=== PATIENT | male | born 1955 | race Hispanic/Latino ===

== ENCOUNTER 2017-03-31 17:28 | Observation (INO) | payer MEDICAID, SELFPAY ==
--- NOTE | 2017-03-31 17:57 | RAD ---
PORTABLE CHEST: 03/31/17 HISTORY: Chest pain. Lungs are clear. No infiltrate or vascular congestion. Heart and mediastinum are unremarkable. IMPRESSION: No acute process identified. POS: [facility]
[2017-03-31 17:58] LABS: #Eosinphils 0.1 thou/uL (0.0-0.7); #Lymphocytes 1.6 thou/uL (1.20-3.40); #Monocytes 0.5 thou/uL (0.11-0.59); #Neutrophils 5.7 thou/uL (1.40-6.50); %Basophils 0.2 % (0.0-1.0); %Eosinophils 1.4 % (0.0-10.0); %Lymphocytes 20.3 % (21.0-51.0); %Monocytes 6.7 % (0.0-10.0); Hematocrit 44.1 % (42.0-52.0); Mean Platelet Volume 7.7 fL (7.4-10.4); White Blood Cell (WBC) Count 7.9 thou/uL (4.8-10.8)
[2017-03-31 18:21] LABS: ALT (SGPT) 48 U/L (8-55); AST (SGOT) 39 U/L (5-34); Alkaline Phosphatase 71 U/L (40-150); Anion Gap 18 mmol/L (10-20); BUN (Urea Nitrogen) 24 mg/dL (8.4-25.7); Bilirubin, Total 0.3 mg/dL (0.2-1.2); CK (CPK) 183 U/L (30-200); Calc. Creatinine Clearance 0 mL/min (70-130); Calcium 9.8 mg/dL (7.8-10.44); Carbon Dioxide 20 mmol/L (23-31); Chloride 105 mmol/L (98-107); Estimated GFR-MDRD 51; Globulin 3.9 g/dL (2.4-3.5)
[2017-03-31 18:23] LABS: Troponin I Less than 0.010 ng/mL (< 0.028)
[2017-03-31] MEDS ORDERED: Nitroglycerin 0.4 MG TAB (25 Tab Bottle) ONE (19:04)
[2017-03-31] MEDS ORDERED: Ondansetron ODT 4 MG TAB SL PRN (21:10)
[2017-03-31] MEDS ORDERED: Ondansetron HCl/PF 4 MG/2 ML Vial IVP PRN (21:10)
[2017-03-31] MEDS ORDERED: Acetaminophen 325 MG TAB PO PRN ×2 (21:10→22:30)
[2017-03-31 21:13] LABS: Troponin I 0.013 ng/mL (< 0.028)
[2017-03-31 21:44] VITALS: BMI 29.8
[2017-03-31] MEDS ORDERED: Guaifenesin DM 100-10/5 ML UDCUP PO PRN (22:30)
[2017-03-31] MEDS ORDERED: Dextrose 50% Abboject 50 ML SYRINGE SLOW IVP PRN (22:30)
[2017-03-31] MEDS ORDERED: Sodium Chloride 0.9% 1,000 ML IV SCH (22:30)
[2017-03-31] MEDS ORDERED: Senokot 8.6 MG TAB PO PRN (22:30)
[2017-03-31] MEDS ORDERED: HumaLOG 300 UNITS/3 ML VIAL SC PRN (22:30)
[2017-03-31] MEDS ORDERED: Dextrose 5% in Water 1,000 ML IV PRN (22:30)
[2017-03-31] MEDS: Albuterol Sulfate 1.25 MG/3 ML NEB NEB SCH (23:04)
[2017-04-01] LABS: Troponin I Less than 0.010 ng/mL (< 0.028)
[2017-04-01 04:26] LABS: #Eosinphils 0.2 thou/uL (0.0-0.7); #Monocytes 0.5 thou/uL (0.11-0.59); %Basophils 0.6 % (0.0-1.0); %Eosinophils 2.9 % (0.0-10.0); %Lymphocytes 34.6 % (21.0-51.0); %Monocytes 9.5 % (0.0-10.0); Hematocrit 38.2 % (42.0-52.0); Mean Platelet Volume 7.7 fL (7.4-10.4); Red Blood Cell (RBC) Count 4.14 mill/uL (4.70-6.10); White Blood Cell (WBC) Count 5.6 thou/uL (4.8-10.8)
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
[2017-04-01 04:50] LABS: Anion Gap 12 mmol/L (10-20); BUN (Urea Nitrogen) 19 mg/dL (8.4-25.7); Calc. Creatinine Clearance 88 mL/min (70-130); Carbon Dioxide 23 mmol/L (23-31); Chloride 109 mmol/L (98-107); Cholesterol 220 mg/dl (< 200 Desired); Estimated GFR-MDRD 78; LDL Cholesterol, Calculated 149 mg/dL
[2017-04-01] MEDS: Albuterol Sulfate 1.25 MG/3 ML NEB NEB SCH ×2 (06:56→13:57)
[2017-04-01] MEDS ORDERED: Aspirin 325 MG TAB PO SCH (08:00)
[2017-04-01] MEDS ORDERED: glyBURIDE 5 MG TAB PO SCH (08:00)
[2017-04-01] MEDS ORDERED: Metoprolol Tartrate 25 MG TAB PO SCH (09:00)
[2017-04-01] MEDS ORDERED: Enoxaparin Sodium 40 MG/0.4 ML SYRINGE SC SCH (09:00)
[2017-04-01] MEDS ORDERED: Famotidine 20 MG TAB PO SCH (09:00)
[2017-04-01 11:22] VITALS: TEMP 97.9
--- NOTE | 2017-04-01 11:42 | NM ---
NUCLEAR MEDICINE MYOCARDIAL PERFUSION STUDY: Date: 04/01/17 HISTORY: Chest pain. TECHNIQUE: SPECT imaging of the left ventricular myocardium obtained during rest and stress following the intrav enous administration of 32.0 and 10.2 mCi technetium-99m labeled sestamibi. FINDINGS: No fixed or reversible defect is evident. Left ventricular wall motion appears normal. TID is 1.1. ED V is 70 mL. ESV is 17 mL. Left ventricular ejection fraction calculated at 76%> IMPRESSION: 1. No discrete fixed or reversible defect. 2. Normal left ventricular wall motion. 3. LVEF calculated at 76%. POS: [facility]
[2017-04-01] MEDS ORDERED: Lisinopril 5 MG TAB PO SCH (12:30)
[2017-04-01 13:46] VITALS: BP 162/82
[2017-04-01] MEDS ORDERED: Regadenoson 0.4 MG/5 ML SYRINGE ONE (14:40)
--- NOTE | 2017-04-01 17:21 | DIS ---
DATE OF ADMISSION: 03/31/2017 DATE OF DISCHARGE: 04/01/2017 DIAGNOSES AT THE TIME OF DISCHARGE: 1. Chest pain, acute coronary syndrome was ruled out. 2. Uncontrolled hypertension, improved. 3. Diabetes mellitus, type 2. 4. Dyslipidemia. HOSPITAL COURSE: The patient is a 61-year-old male who presented to the emergency room with complaints of left-sided chest pain, which started around 5:00 p.m. The pain was sharp, shooting wa s described as 10/10 in intensity, no radiation. There were not any complaints of any cough, no feve r, no orthopnea or PND. The patient was evaluated in the emergency room, he was found to have 2 sets of troponins within normal limits. CK-MB was 3.7. Albumin was 4.1, glucose 241, BUN 24, creatinine 1.4, serum bicarbonate was 20. White cell count was 7.9, H&H are 14 and 44 and platelet count was 1 88 with MCV of 92 and 71% of neutrophils. Chest x-ray did not show any acute abnormalities. EKG go wed normal sinus rhythm at 100 beats per minute, nonspecific ST-T wave changes, no ischemic changes. Lipase was 52. The patient got admitted to observation unit, acute coronary syndrome was ruled out with EKG and 3 sets of cardiac enzymes which were all negative. The patient's blood pressure was sli ghtly elevated and he was giving 5 mg of lisinopril and his blood pressure is systolic 162/85. He is doing well. He underwent stress test this morning, which did not show any ischemic changes, no disc rete fixed or reversible defect. LVEF was calculated at 76 and motion of the left ventricle wall was within normal limits. He is discharged home on diabetic diet with activities as tolerated. MEDICATIONS AT THE TIME OF DISCHARGE: Lisinopril 5 mg once a day, metformin 1000 mg twice a day, asp irin 81 mg once a day, neomycin and polymyxin suspension, he was taking prior to this hospitalization . DISCHARGE FOLLOWUP: He is going to follow up with his primary care physician. [facility], [facility] [place]. He is going to visit with PCP in 1 week and I am writing prescription for fl m on lisinopril 5 mg, #30, and the patient was seen and examined before his discharge and the dischar ge time is less than 30 minutes.
--- NOTE | 2017-05-08 11:37 | EKG ---
Test Reason : Blood Pressure : / mmHG Vent. Rate : 100 BPM Atrial Rate : 100 BPM P-R Int : 150 ms QRS Dur : 094 ms QT Int : 340 ms P-R-T Axes : 060 030 095 degrees QTc Int : 438 ms Normal sinus rhythm Cannot rule out Anterior infarct , age undetermined No STEMI Abnormal ECG Confirmed by ELLEN Mane, PEGGY ([id number]), video tape editor NINFA MENESES ([id number]) on 05/08/2017 11:36:30 AM Referred By: Confirmed By:PEGGY HUGHES M.D.
--- NOTE | 2017-05-08 13:35 | STRESS ---
Acquisition Time: 2017-04-01 09:07:02 Total Exercise Time: 00:01:00 Test Indications: CHEST PAIN Medications: Protocol: LEXISCAN Max HR: 096 BPM 60% of Pred: 159 BPM Max BP: 140/082 mmHG Max Work Load: 1.0 METS RESTING ECG: NORMAL SINUS RHYTHM AT 78 BPM WITH EARLY REPOLARIZATION SYMPTOMS: NONE NORMAL BP RESPONSE ECTOPY: NONE ECG STRESS: NO SIGNIFICANT CHANGES INTERPRETATION: NEGATIVE ECG/AWAIT NUCLEAR IMAGES FOR DEFINITIVE DIAGNOSIS Confirmed by STACEY LEE MD ([id number]) on 05/08/2017 1:35:10 PM Referred By: MD Mariya HALL Confirmed By:STACEY LEE MD
== END 2017-04-01 14:16 | disposition home or self-care (01) ==
LOC: ERS 17:28 → 2SW 20:55
PROVIDERS: ADMIT Internal Medicine; ATTEND Internal Medicine
DX: R07.9 Chest pain, unspecified (principal); I10 Essential (primary) hypertension; E11.9 Type 2 diabetes mellitus without complications; E78.5 Hyperlipidemia, unspecified; Z79.84 Long term (current) use of oral hypoglycemic drugs; Z79.82 Long term (current) use of aspirin; Z79.2 Long term (current) use of antibiotics; Z79.899 Other long term (current) drug therapy; Z89.022 Acquired absence of left finger(s); Z89.422 Acquired absence of other left toe(s); Z87.891 Personal history of nicotine dependence
CPT/HCPCS: 36415; 36416; 71010; 78452; 80048; 80053; 80061; 82550; 82553; 83690; 83880; 84484; 85025; 93005; 93017; 94640; 94760; 96360; 96361; A9500; G0378; J2785

== ENCOUNTER 2017-08-24 17:05 | Emergency (ER) | payer OTHER, SELFPAY ==
[2017-08-24 19:24] LABS: #Eosinphils 0.1 thou/uL (0.0-0.7); #Lymphocytes 1.7 thou/uL (1.20-3.40); #Monocytes 0.6 thou/uL (0.11-0.59); #Neutrophils 3.3 thou/uL (1.40-6.50); %Basophils 0.7 % (0.0-1.0); %Eosinophils 2.2 % (0.0-10.0); %Lymphocytes 29.6 % (21.0-51.0); %Neutrophils 57.4 % (42.0-75.0); Hemoglobin 13.6 g/dL (14.0-18.0); Mean Corpuscular HGB CONC 35.4 g/dL (32.0-36.0); Mean Corpuscular Hemoglobin 32.1 pg (27.0-31.0); Mean Corpuscular Volume 90.5 fl (80.0-94.0); Mean Platelet Volume 7.5 fL (7.4-10.4); Platelet Count 178 thou/uL (130-400); RBC Distribution Width 11.4 % (11.5-14.5); Red Blood Cell (RBC) Count 4.23 mill/uL (4.70-6.10); White Blood Cell (WBC) Count 5.8 thou/uL (4.8-10.8)
[2017-08-24 19:44] LABS: ALT (SGPT) 20 U/L (8-55); AST (SGOT) 20 U/L (5-34); Albumin 4.1 g/dL (3.4-4.8); Alkaline Phosphatase 62 U/L (40-150); Anion Gap 12 mmol/L (10-20); BUN (Urea Nitrogen) 24 mg/dL (8.4-25.7); Bilirubin, Total 0.3 mg/dL (0.2-1.2); Calc. Creatinine Clearance 0 mL/min (70-130); Calcium 9.4 mg/dL (7.8-10.44); Carbon Dioxide 25 mmol/L (23-31); Chloride 107 mmol/L (98-107); Estimated GFR-MDRD 62; Globulin 3.3 g/dL (2.4-3.5); Glucose 185 mg/dL (80-115); Potassium 4.2 mmol/L (3.5-5.1); Protein, Total 7.4 g/dL (5.8-8.1); Sodium 140 mmol/L (136-145)
[2017-08-24 19:48] LABS: Troponin I Less than 0.010 ng/mL (< 0.028)
--- NOTE | 2017-08-24 21:05 | RAD ---
AP VIEW OF THE CHEST: 08/24/17 INDICATION: Chest pain. IMPRESSION: No acute cardiopulmonary abnormality. Low lung volumes. The examination is otherwise not appreciably changed from the comparison dated 03/31/17. POS: [facility]
[2017-08-24] MEDS ORDERED: Ketorolac Tromethamine 60 MG/2 ML VIAL ONE (21:16)
--- NOTE | 2017-10-30 17:11 | EKG ---
Test Reason : Blood Pressure : / mmHG Vent. Rate : 084 BPM Atrial Rate : 084 BPM P-R Int : 132 ms QRS Dur : 090 ms QT Int : 352 ms P-R-T Axes : 056 058 086 degrees QTc Int : 415 ms Poor data quality, interpretation may be adversely affected Normal sinus rhythm No STEMI Abnormal ECG Confirmed by ELLEN Mane, PEGGY ([id number]), acquisition editor NINFA MENESES ([id number]) on 10/30/2017 5:11:11 PM Referred By: Confirmed By:PEGGY HUGHES M.D.
== END 2017-08-24 22:07 | disposition home or self-care (01) ==
LOC: ERS 17:05
DX: M62.830 Muscle spasm of back (principal); M62.838 Other muscle spasm; E78.5 Hyperlipidemia, unspecified; E11.9 Type 2 diabetes mellitus without complications; I10 Essential (primary) hypertension; Z79.82 Long term (current) use of aspirin; Z79.84 Long term (current) use of oral hypoglycemic drugs; V43.52XA Car driver injured in collision with other type car in traffic accident, initial encounter
CPT/HCPCS: 36415; 71045; 80053; 82553; 84484; 85025; 93005; 96372; J1885

== ENCOUNTER 2017-09-27 12:16 | Emergency (ER) | payer SELFPAY ==
[2017-09-27 14:18] LABS: #Eosinphils 0.1 thou/uL (0.0-0.7); #Lymphocytes 1.9 thou/uL (1.20-3.40); #Monocytes 0.6 thou/uL (0.11-0.59); %Basophils 0.6 % (0.0-1.0); %Eosinophils 1.7 % (0.0-10.0); %Lymphocytes 24.4 % (21.0-51.0); %Monocytes 8.3 % (0.0-10.0); Hemoglobin 14.3 g/dL (14.0-18.0); Mean Corpuscular HGB CONC 34.5 g/dL (32.0-36.0); Mean Corpuscular Hemoglobin 31.2 pg (27.0-31.0); Mean Corpuscular Volume 90.5 fl (80.0-94.0); Mean Platelet Volume 7.8 fL (7.4-10.4); Platelet Count 240 thou/uL (130-400); RBC Distribution Width 11.2 % (11.5-14.5); Red Blood Cell (RBC) Count 4.57 mill/uL (4.70-6.10); White Blood Cell (WBC) Count 7.7 thou/uL (4.8-10.8)
[2017-09-27 14:40] LABS: ALT (SGPT) 20 U/L (8-55); AST (SGOT) 25 U/L (5-34); Albumin 4.2 g/dL (3.4-4.8); Alkaline Phosphatase 72 U/L (40-150); Anion Gap 12 mmol/L (10-20); BUN (Urea Nitrogen) 23 mg/dL (8.4-25.7); Bilirubin, Total 0.6 mg/dL (0.2-1.2); Calc. Creatinine Clearance 0 mL/min (70-130); Calcium 9.5 mg/dL (7.8-10.44); Carbon Dioxide 25 mmol/L (23-31); Chloride 103 mmol/L (98-107); Estimated GFR-MDRD 56; Globulin 4.4 g/dL (2.4-3.5); Glucose 210 mg/dL (80-115); Protein, Total 8.6 g/dL (5.8-8.1); Sodium 135 mmol/L (136-145)
[2017-09-27] MEDS ORDERED: cefTRIAXone\\ROCEPHIN 1 GM VIAL ONE (14:41)
--- NOTE | 2017-09-27 15:17 | RAD ---
PA AND LATERAL CHEST RADIOGRAPH: Date: 09-27-17 History: Shortness of breath. Wound to left middle toe for three days. Comparison: 04-04-17 FINDINGS: Cardiac silhouette and pulmonary vasculature are within normal limits. The lungs remain clear. Chest is stable from prior exam. IMPRESSION: No acute cardiopulmonary process. POS: [facility]
--- NOTE | 2017-09-27 15:21 | RAD ---
LEFT FOOT THREE VIEWS: Comparison: 03-14-15 Indication: Wound. History of partial amputation of the left foot. FINDINGS: There is surgical absence of portions of the first and second ray. There is dislocation at the third digit MTP joint with override of the proximal half of the proximal phalanx and the third metatarsal h ead and resultant medial angulation of the third digit. There is erosive lucency involving the medial base and proximal phalangeal region of the fourth digit. Adjacent osseous sclerosis is present invol ving the proximal portion of the fourth digit proximal phalanx. There are vascular calcifications. So ft tissue prominence is seen. IMPRESSION: 1. Partial amputation of the first and second rays. 2. Dislocation of the third MTP joint. 3. Erosive lucency centered about the base and proximal aspect of the fourth digit proximal phalanx. Sequellae from a chronic osteomyelitis is not excluded. Superimposed acute process could also be pres ent. Consider MRI of bone scan for further evaluation. POS: [facility]
== END 2017-09-27 15:20 | disposition home or self-care (01) ==
LOC: ERS 12:16
DX: E11.621 Type 2 diabetes mellitus with foot ulcer (principal); E78.5 Hyperlipidemia, unspecified; I10 Essential (primary) hypertension; Z87.891 Personal history of nicotine dependence; Z79.82 Long term (current) use of aspirin; Z79.84 Long term (current) use of oral hypoglycemic drugs
CPT/HCPCS: 71046; 80053; 85025; 87070; 87077; 87186; 87205; 96365; J0696

== ENCOUNTER 2017-09-28 16:23 | Inpatient (IN) | payer MEDICARE, MEDICAID ==
[2017-09-28 17:16] LABS: #Basophils 0.1 thou/uL (0.0-0.2); #Eosinphils 0.1 thou/uL (0.0-0.7); #Lymphocytes 1.6 thou/uL (1.20-3.40); #Monocytes 0.7 thou/uL (0.11-0.59); #Neutrophils 5.1 thou/uL (1.40-6.50); %Eosinophils 1.9 % (0.0-10.0); %Lymphocytes 21.4 % (21.0-51.0); %Monocytes 8.5 % (0.0-10.0); %Neutrophils 67.3 % (42.0-75.0); Hemoglobin 14.2 g/dL (14.0-18.0); Mean Corpuscular HGB CONC 35.1 g/dL (32.0-36.0); Mean Corpuscular Hemoglobin 31.9 pg (27.0-31.0); Mean Corpuscular Volume 90.9 fl (80.0-94.0); Mean Platelet Volume 7.2 fL (7.4-10.4); Platelet Count 236 thou/uL (130-400); RBC Distribution Width 11.2 % (11.5-14.5); Red Blood Cell (RBC) Count 4.45 mill/uL (4.70-6.10); White Blood Cell (WBC) Count 7.6 thou/uL (4.8-10.8)
[2017-09-28 18:05] LABS: ALT (SGPT) 18 U/L (8-55); AST (SGOT) 18 U/L (5-34); Albumin 4.5 g/dL (3.4-4.8); Alkaline Phosphatase 75 U/L (40-150); Anion Gap 13 mmol/L (10-20); BUN (Urea Nitrogen) 24 mg/dL (8.4-25.7); Bilirubin, Total 0.5 mg/dL (0.2-1.2); Calc. Creatinine Clearance 0 mL/min (70-130); Calcium 9.5 mg/dL (7.8-10.44); Carbon Dioxide 23 mmol/L (23-31); Chloride 107 mmol/L (98-107); Estimated GFR-MDRD 57; Globulin 3.7 g/dL (2.4-3.5); Glucose 123 mg/dL (80-115); Potassium 4.4 mmol/L (3.5-5.1); Protein, Total 8.2 g/dL (5.8-8.1); Sodium 139 mmol/L (136-145)
[2017-09-28] MEDS ORDERED: Piperacillin/Tazobactam 4.5 GM VIAL ONE (18:21)
[2017-09-28 20:09] VITALS: BMI 32.6
[2017-09-28] MEDS ORDERED: HumaLOG 300 UNITS/3 ML VIAL SC PRN (20:14)
[2017-09-28] MEDS ORDERED: Ondansetron HCl/PF 4 MG/2 ML Vial IVP PRN (20:14)
[2017-09-28] MEDS ORDERED: Dextrose 5% in Water 1,000 ML IV PRN (20:14)
[2017-09-28] MEDS ORDERED: Bisacodyl 5 MG TAB PO PRN (20:14)
[2017-09-28] MEDS ORDERED: Acetaminophen 650 MG Suppository PR PRN (20:14)
[2017-09-28] MEDS ORDERED: Ondansetron ODT 4 MG TAB PO PRN (20:14)
[2017-09-28] MEDS ORDERED: Dextrose 50% Abboject 50 ML SYRINGE SLOW IVP PRN (20:14)
[2017-09-28] MEDS ORDERED: Lisinopril 5 MG TAB PO SCH (20:14)
[2017-09-28] MEDS ORDERED: Acetaminophen 325 MG TAB PO PRN (20:14)
[2017-09-28] MEDS: Famotidine 20 MG TAB PO SCH (21:21)
[2017-09-28] MEDS: Docusate 100 MG CAP PO SCH (21:21)
--- NOTE | 2017-09-28 23:24 | HP ---
PRIMARY CARE PHYSICIAN: Dr. Parkinson at [facility]. CHIEF COMPLAINT: Toe ulcer. HISTORY OF PRESENT ILLNESS: This is a 61-year-old male with a longstanding history of diabe mellisa mellitus, type 2, with previous amputations of the first and second toes on his left foot. Margareth rojo reports that he went to [place] last week for his brother's . He did not take care of his f eet and sat in a bus with tight shoes on for a long time each way. When he got back, he noted a sore on the top of his left third toe that burst open and produced a lot of pus and dried up a little bit after that. He has not had any pain or fever. He did have some trouble moving the toe when it was full of pus, but now he can move it again. The patient was seen here in the emergency room yesterday . He had an x-ray that did not show any osteomyelitis of the toe, and so he was given 1 gram of Roce phin then and then discharged with Bactrim double strength 1 tablet twice a day. He followed up with Dr. Parkinson at the [facility] today and they thought that there might be some osteo invo lved, so they told him to go back to the hospital to be further evaluated and be admitted for IV anti biotics. So, patient is back over here today. He does not have any fevers. He has no pain. No oth er symptoms. He has not noticed any spreading redness. PAST MEDICAL HISTORY: 1. Diabetes mellitus, type 2, for the last 15 years on oral hypoglycemics. 2. Dyslipidemia. 3. Hypertension. 4. History of testicular torsion. PAST SURGICAL HISTORY: 1. Left fifth finger distal phalanx amputation. 2. Left first and second toe amputations. 3. Some sort of testicular torsion repair. SOCIAL HISTORY: The patient smoked 1 pack of cigarettes per day for 10 years, quit 20 years ago. No alcohol or illicit drug use. He lives with his friends and does not have any close family members i the area. FAMILY HISTORY: Mother at age 68 of causes and father at the age of 3030 years old after ass aleena. ALLERGIES: No known drug allergies. CURRENT MEDICATIONS: 1. Aspirin 81 mg daily. 2. Metformin at 1000 mg twice a day. 3. Glyburide 10 mg daily. 4. He was also supposed to be started on lisinopril 5 mg daily when he was admitted here last year. He does not seem to have continued that medicine. REVIEW OF SYSTEMS: Constitutional: No fevers, no chills. Eyes: No double vision or blurred vision . ENT: No congestion, drainage, or sore throat. Cardiovascular: No chest pain, palpitations, or r acing heart. Pulmonary: No coughing, wheezing, or shortness of breath. Gastrointestinal: No abdom inal pain, no nausea, vomiting, no diarrhea or constipation. Genitourinary: No dysuria or hematuria . Musculoskeletal: No muscle aches or joint pains. See HPI for all pertinent positives. Skin: Se e HPI. No other rashes or lesions noted. Neurologic: Patient has decreased sensation in his lower extremities, otherwise no new neuro signs. PHYSICAL EXAMINATION: VITAL SIGNS: Blood pressure 164/90, pulse 79, respirations 19, temperature 98.9, O2 sat 97% on room air. GENERAL: This is a well-developed, well-nourished male, in no apparent distress. HEENT EXAM: Pupils equal, round, and reactive to light. Extraocular movements intact. Oropharynx c lear without lesions, erythema, or exudate. NECK: Supple, no lymphadenopathy, no thyroid nodules or enlargement, no JVD. HEART: Regular rate and rhythm, no murmurs, rubs, or gallops. LUNGS: Clear to auscultation bilaterally, no wheezes, crackles, or rhonchi. ABDOMEN: Soft, nontender to palpation, normoactive bowel sounds, no hepatosplenomegaly or other mass es. EXTREMITIES: No clubbing, cyanosis, or edema. Patient does have surgically absent first and second toes to the mid metatarsal shaft without any evidence of infection in those areas. He does have an u lcer on the top of his left third toe over the joint, has thickening of the skin, and some minimal er ythema surrounding it. No drainage at this time. The toe does have intact cap refill distally. It does like slightly darker color than the other toes, but not significantly. There is no surrounding erythema. No pain with manipulation. No erythema spreading up the foot. He also has a thickened so re on the plantar surface over the fifth MTP on the left side. This does not look infected, just leland e thickening with a crack in the middle of it. No drainage, no erythema, no warmth. SKIN: See above. MUSCULOSKELETAL EXAM: No other rashes noted. The patient has intact dorsalis pedis pulses bilateral ly with a strong pulse. NEUROLOGIC: He has no facial droop. He has intact strength in all extremities and decreased sensati on in his bilateral feet. LABORATORY DATA: CBC within normal limits. Complete metabolic panel notable only for a glucose of 1 23 and a serum total protein of 8.2. The rest is normal. I did review the x-ray done in the emergen cy room yesterday along with the radiologist's report. It shows the previous partial amputation of t he first and second rays of the left foot, dislocation of the third MTP joint, and erosive lucency ce ntered around the base and proximal aspect of the fourth digit proximal phalanx, unable to rule out c hronic osteomyelitis. ASSESSMENT: 1. Diabetic toe ulcer. He does not have any evidence of osteomyelitis on the underlying toe on the x-ray though he did have some changes on the fourth toe, which has no ulcer to it. 2. We will go ahead and get patient an MRI of his foot. If that shows any osteomyelitis, he will ne ed a surgical consultation. Otherwise, we can discharge him again on Bactrim for continued followup as an outpatient. We will have to do wound care while here in the hospital. 3. Diabetes mellitus, type 2. Resume patient's oral hypoglycemics and put him on a low insulin slid ing scale. Fingerstick blood sugars q.a.c. and at bedtime. 3. Hypertension. We will start patient back on lisinopril 5 mg daily. 4. Mixed lipidemias, had mild triglyceride and cholesterol elevations at his last admission here las t year. We will defer to his PCP whether or not to start him on a statin at this time. 5. Gastrointestinal prophylaxis. The patient on Pepcid twice a day. 7. Code status. I did discuss with the patient he is a FULL CODE. Should he be incapacitated, he d oes not have any family or medical power of forensic materials engineer filled out, though he states that his close frie nd would be the one to make medical decisions, her name is Valerie Danielson.
[2017-09-28] MEDS ORDERED: Piperacillin/Tazobactam 3.375 GM in Sodium Chloride 0.9% 100 ML IVPB SCH (23:59)
[2017-09-29] MEDS: Piperacillin/Tazobactam 3.375 GM in Sodium Chloride 0.9% 100 ML IVPB SCH ×3 (00:10→12:07)
[2017-09-29 04:53] LABS: #Eosinphils 0.2 thou/uL (0.0-0.7); #Lymphocytes 1.8 thou/uL (1.20-3.40); #Monocytes 0.8 thou/uL (0.11-0.59); #Neutrophils 4.5 thou/uL (1.40-6.50); %Basophils 0.6 % (0.0-1.0); %Eosinophils 2.3 % (0.0-10.0); %Lymphocytes 24.6 % (21.0-51.0); %Monocytes 11.3 % (0.0-10.0); %Neutrophils 61.2 % (42.0-75.0); Hemoglobin 12.9 g/dL (14.0-18.0); Mean Corpuscular HGB CONC 34.8 g/dL (32.0-36.0); Mean Corpuscular Hemoglobin 31.7 pg (27.0-31.0); Mean Corpuscular Volume 91.1 fl (80.0-94.0); Mean Platelet Volume 7.4 fL (7.4-10.4); Platelet Count 222 thou/uL (130-400); RBC Distribution Width 11.2 % (11.5-14.5); Red Blood Cell (RBC) Count 4.06 mill/uL (4.70-6.10); White Blood Cell (WBC) Count 7.3 thou/uL (4.8-10.8)
[2017-09-29 04:57] LABS: Anion Gap 9 mmol/L (10-20); BUN (Urea Nitrogen) 20 mg/dL (8.4-25.7); Calc. Creatinine Clearance 71 mL/min (70-130); Carbon Dioxide 27 mmol/L (23-31); Chloride 107 mmol/L (98-107); Estimated GFR-MDRD 63; Glucose 145 mg/dL (80-115); Sodium 139 mmol/L (136-145)
[2017-09-29] MEDS: metFORMIN 500 MG TAB PO SCH ×2 (08:42→17:14)
[2017-09-29] MEDS: Aspirin 81 mg Enteric Coated Tablet PO SCH (08:42)
[2017-09-29] MEDS: glyBURIDE 5 MG TAB PO SCH (08:42)
[2017-09-29] MEDS: Docusate 100 MG CAP PO SCH ×2 (08:42→20:19)
--- NOTE | 2017-09-29 10:50 | MRI ---
LEFT FOOT MRI WITHOUT IV CONTRAST: HISTORY: A 61-year-old male with a history of diabetic ulcer and possible osteomyelitis. Open wound. Prior p artial amputation. COMPARISON: Plain film examination 09/27/17. FINDINGS: Amputation of the 1st and 2nd toes at the level of the proximal metatarsals is noted. There is dislo cation of the metatarsal phalangeal joint of the 2rd toe with abnormal low T1 and high T2 and STIR si gnal involving the proximal phalanx and middle phalanx of the 3rd toe with soft tissue swelling and e vidence for significant osteomyelitis and probable septic arthritis involving the proximal interphala ngeal joint of the 3rd toe. There are some arthrosis changes involving the 4th metatarsal phalangeal joint with some mild deformity, but no evidence to suggest osteomyelitis in this region. Nonspecifi c T2 hyperintensity involving the intrinsic muscles of the foot which certainly can be seen in a nick ent with diabetes. IMPRESSION: Evidence for osteomyelitis involving the proximal and middle phalanges as well as the proximal interp halangeal joint of the 3rd toe. Dislocation of the 3rd metatarsal phalangeal joint. Amputation smith ges of the 1st and 2nd toes. Other findings as above. POS: [facility]
[2017-09-29] MEDS: HumaLOG 300 UNITS/3 ML VIAL SC PRN ×2 (12:07→17:14)
--- NOTE | 2017-09-29 17:20 | PDOC.PN ---
- Subjective Encounter Start Date: 09/29/17 Encounter Start Time: 17:15 Subjective: f/u for osteomyelitis left 3rd toe with staph spp on culture receiving -: Zosyn currently. MRI of L foot confirming osteo. No pain in toe. No fever. - Objective Resuscitation Status: Resuscitation Status FULL:Full Resuscitation MAR Reviewed: Yes Vital Signs & Weight: Vital Signs (12 hours) Temp Pulse Resp BP BP Pulse Ox 09/29/17 16:00 98.1 F 72 18 168/81 H 94 L 09/29/17 11:00 98.3 F 79 18 124/78 95 09/29/17 08:00 98.3 F 72 18 94 L 09/29/17 07:26 98.3 F 72 18 126/73 94 L Weight Admit Weight 167 lb 3.2 oz Weight 167 lb 3.2 oz Result Diagrams: 09/29/17 03:43 09/29/17 03:43 Additional Labs: Accuchecks 09/29/17 09/29/17 09/28/17 11:21 06:56 20:54 POC Glucose 174 H 112 H 283 H Microbiology 09/27/17 14:12 Foot - Left Bacterial Culture - Final Staphylococcus aureus 09/28/17 17:03 Venous blood - Right Hand Blood Culture - Preliminary Specimen has been received and culture in progress. No Growth to date. 09/28/17 17:03 Venous blood - Left Arm Blood Culture - Preliminary Specimen has been received and culture in progress. No Growth to date. Laboratory Tests 09/28/17 17:03 Lactic Acid 1.2 Radiology Reviewed by me: Yes (MRI L foot - osteo L 3rd toe) Phys Exam - Physical Examination Constitutional: NAD HEENT: PERRLA, moist MMs, sclera anicteric, oral pharynx no lesions Neck: no nodes, no JVD, supple, full ROM Respiratory: no wheezing, no rales, no rhonchi, clear to auscultation bilateral Cardiovascular: RRR, no significant murmur, no rub, gallop Gastrointestinal: soft, non-tender, no distention, positive bowel sounds L foot 3rd toe with edema, small drainage and crusting on dorsal aspect Musculoskeletal: pulses present decreased sensation to pin-prick and light touch Neurological: moves all 4 limbs Psychiatric: normal affect, A&O x 3 Skin: no rash, normal turgor, cap refill <2 seconds Dx/Plan (1) Acute osteomyelitis of toe of left foot Code(s): M86.172 - OTHER ACUTE OSTEOMYELITIS, LEFT ANKLE AND FOOT Status: Acute Comment: Left 3rd toe osteomyelitis confirmed by MRI, d/c Zosyn, start Rocephin 2gm IV daily, consult general surgery for evaluation in am (2) Benign essential hypertension Code(s): I10 - ESSENTIAL (PRIMARY) HYPERTENSION Status: Chronic Comment: Change Lisinopril 10mg daily, serial monitoring (3) Diabetes mellitus type 2, uncontrolled Code(s): E11.65 - TYPE 2 DIABETES MELLITUS WITH HYPERGLYCEMIA Status: Chronic Qualifiers: Diabetes mellitus complication detail: with foot ulcer Comment: Continue ISS, Glyburide and Metformin, ADA diet, A1C in am (4) Diabetic neuropathy Code(s): E11.40 - TYPE 2 DIABETES MELLITUS WITH DIABETIC NEUROPATHY, UNSP Status: Chronic Comment: consider Gabapentin for d/c - Plan plan discussed w/ family, continue antibiotics, 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
[2017-09-29] MEDS: cefTRIAXone\\ROCEPHIN 2 GM in Sodium Chloride 0.9% 100 ML IVPB SCH (18:28)
[2017-09-29] MEDS: Famotidine 20 MG TAB PO SCH (20:17)
[2017-09-30 04:43] LABS: Hemoglobin A1c 7.3 % (4.0-6.0)
[2017-09-30 05:02] LABS: Anion Gap 10 mmol/L (10-20); BUN (Urea Nitrogen) 19 mg/dL (8.4-25.7); Calc. Creatinine Clearance 73 mL/min (70-130); Calcium 9.5 mg/dL (7.8-10.44); Carbon Dioxide 27 mmol/L (23-31); Chloride 108 mmol/L (98-107); Cholesterol 187 mg/dl (< 200 Desired); Estimated GFR-MDRD 65; Glucose 76 mg/dL (80-115); HDL Cholesterol 31 mg/dL (>60 Neg Risk); LDL Cholesterol, Calculated 126 mg/dL; Potassium 4.3 mmol/L (3.5-5.1); Sodium 141 mmol/L (136-145); Triglycerides 152 mg/dL (Less than 150)
[2017-09-30 06:02] LABS: Band 1 % (5-11); Eosinophils 1 % (0-10); Hemoglobin 13.1 g/dL (14.0-18.0); Lymphocytes 30 % (21-51); MDiff Complete? YES; Mean Corpuscular HGB CONC 34.2 g/dL (32.0-36.0); Mean Corpuscular Hemoglobin 31.5 pg (27.0-31.0); Mean Corpuscular Volume 92.2 fl (80.0-94.0); Mean Platelet Volume 7.5 fL (7.4-10.4); Monocytes 5 % (0-10); Neutrophil 63 % (42-75); PLT Morphology Comment Appears Adequate; Platelet Count 225 thou/uL (130-400); RBC Distribution Width 11.2 % (11.5-14.5); RBC Morphology Normal; Red Blood Cell (RBC) Count 4.17 mill/uL (4.70-6.10); White Blood Cell (WBC) Count 7.6 thou/uL (4.8-10.8)
[2017-09-30] MEDS ORDERED: VANCOMYCIN IVPB PRN (08:31)
--- NOTE | 2017-09-30 08:33 | CON ---
HISTORY OF PRESENT ILLNESS: Mr. Satya Prather is a 61-year-old male patient admitted by [facility] t Service for diabetic foot infection, left. He was admitted two days ago. MRI scan, left foot reve aled osteomyelitis involving the left third toe in multiple locations and changes from amputations pr eviously in the first and second toes. Foot x-ray in the emergency room 09/27/2017 revealed changes in the osteomyelitis of the left third toe. The patient is noted to have a negative cardiac stress t est, 03/2017. Osteomyelitis changes of the left third toe involve the proximal and middle phalanx as well as the interphalangeal joints of the third toe. There is dislocation of the third metatarsopha langeal joint. In 01/2015, I amputated the left great and second toe and metatarsals and a wound VAC applied and ike pite PAD by exam with absence of pedal pulses, the wound healed without problems. ALLERGIES: MORPHINE. TOBACCO: None. ALCOHOL: None. PAST SURGICAL HISTORY: Noncontributory except for above noted amputation, 03/2015. PAST MEDICAL HISTORY: Hypertension, diabetes. HOME MEDICATIONS: Metformin 1000 b.i.d., glyburide 5 daily, lisinopril 5 every day, aspirin 81 mg a day. In addition, the patient is receiving ceftriaxone in the hospital. REVIEW OF SYSTEMS: Ten point noncontributory. PHYSICAL EXAMINATION: VITAL SIGNS: Temperature 97.5, 72, 16, 167/91. LUNGS: Clear to auscultation. CARDIAC: Regular rate and rhythm without murmur or gallop. ABDOMEN: Soft, nontender. EXTREMITIES: Unremarkable except for absence of pedal pulse, left. Palpable femoral, popliteal puls es. He has previously healed amputation site from the first and second metatarsal excision, left riky t. He has cellulitis, edema, left third toe. The forefoot is normal in appearance. LABORATORY DATA: White count 7, hemoglobin 13, sodium 141, potassium 4.3, BUN 19, creatinine 1.14. Accu-Cheks 136. ASSESSMENT AND PLAN: 1. Diabetic infection, osteomyelitis, left third toe, plan amputation of left third toe through the proximal phalanx, hopefully we are close this. This was shortened his hospitalization and wound care will not be necessary. We will order a postoperative shoe for use perioperatively. Expect to be ab le to be discharged home on oral antibiotics tomorrow and follow up in my office in 2 weeks. 2. Diabetes mellitus. 3. Peripheral artery disease, but healing previously. I do not think further evaluation of his adele pheral artery disease is necessary at this time as he healed his previous wounds without problems.
[2017-09-30] MEDS: Aspirin 81 mg Enteric Coated Tablet PO SCH (08:34)
[2017-09-30] MEDS: metFORMIN 500 MG TAB PO SCH ×2 (08:34→16:51)
[2017-09-30] MEDS: glyBURIDE 5 MG TAB PO SCH (08:35)
[2017-09-30] MEDS: Lisinopril 10 MG TAB PO SCH (08:35)
[2017-09-30] MEDS: Docusate 100 MG CAP PO SCH ×2 (08:37→21:11)
[2017-09-30] MEDS ORDERED: Vancomycin HCl 1 GM in Premix Bag 1 BAG IVPB SCH (09:00)
[2017-09-30] MEDS ORDERED: Vancomycin HCl 1.25 GM in Sodium Chloride 0.9% 250 ML 250 ML IVPB SCH (09:00)
[2017-09-30] MEDS ORDERED: Midazolam HCl 2 mg/2 ml Vial ONE (11:17)
[2017-09-30] MEDS ORDERED: Ondansetron HCl/PF 4 MG/2 ML Vial ONE (11:17)
[2017-09-30] MEDS ORDERED: Fentanyl 100 MCG/2 ML VIAL ONE (11:17)
[2017-09-30] MEDS ORDERED: Bacitracin Zinc Ointment 30 gm TUBE ONE (12:04)
[2017-09-30] MEDS ORDERED: Ibuprofen 600 MG TAB PO PRN (12:34)
[2017-09-30] MEDS ORDERED: traMADol HCl 50 MG TAB PO PRN ×2 (12:34)
[2017-09-30] MEDS ORDERED: Acetaminophen 500 MG TAB PO PRN (12:34)
--- NOTE | 2017-09-30 12:53 | OP ---
DATE OF PROCEDURE: 09/30/2017 PREOPERATIVE DIAGNOSES: Diabetic infection with osteomyelitis, left third toe with history of prior amputation I performed a left first and second toes and metatarsals. Wound healed. Neuropathic ulce ration/callus, left foot, beneath the third, fourth, and fifth metatarsophalangeal joints, superficia l. PROCEDURE: Amputation of left third toe through the proximal phalanx with primary closure. Debridem ent of neuropathic diabetic callus, left foot superficial. SURGEON: Alexander Dent M.D. ANESTHESIA: General LMA. NOTE: Excellent blood supply, cautery necessary during the procedure. PROCEDURE IN DETAIL: The patient was taken to the operating room where under general anesthesia, lef t lower extremity was prepared with ChloraPrep, draped in routine fashion. Amputation of left third toe performed through the proximal phalanx with a fish mouth incision, resecting connective tissue sh arply and the proximal phalanx with the rongeurs to healthy bone. Wound irrigated, good hemostasis n oted with use of the cautery. Connective tissue debrided. Subcutaneous tissues approximated with 4- 0 Monocryl, skin with interrupted vertical mattress suture of 4-0 Prolene. Diabetic neuropathic callus, plantar left foot laterally debrided sharply with superficial mostly ski n. The patient tolerated the procedure well. Sterile dressing applied. Antibiotic ointment, Xerofo rm. The patient can be discharged home tomorrow on oral antibiotics. He will follow up in my office in about 2 weeks.
--- NOTE | 2017-09-30 14:34 | PDOC.PN ---
- Subjective Encounter Start Date: 09/30/17 Encounter Start Time: 14:30 Subjective: f/u L toe osteomyelitis s/p amputation 09/30/17. No new complaints. Minimal -: pain. Receiving Vancomycin, Cipro and Bactrim. - Objective Resuscitation Status: Resuscitation Status FULL:Full Resuscitation MAR Reviewed: Yes Vital Signs & Weight: Vital Signs (12 hours) Temp Pulse Resp BP BP Pulse Ox 09/30/17 13:35 97.8 F 84 16 159/88 H 98 09/30/17 08:35 167/91 H 09/30/17 08:00 97.9 F 72 16 96 09/30/17 07:21 97.9 F 72 16 167/91 H 96 Weight Admit Weight 167 lb 3.2 oz Weight 167 lb 3.2 oz I&O: 09/29/17 09/30/17 10/01/17 06:59 06:59 06:59 Intake Total 700 Balance 700 Result Diagrams: 09/30/17 04:04 09/30/17 04:04 Additional Labs: Accuchecks 09/30/17 09/30/17 09/29/17 13:44 04:28 21:05 POC Glucose 88 71 136 H 09/29/17 16:46 POC Glucose 191 H Microbiology 09/27/17 14:12 Foot - Left Bacterial Culture - Final Staphylococcus aureus 09/28/17 17:03 Venous blood - Right Hand Blood Culture - Preliminary Specimen has been received and culture in progress. No Growth to date. 09/28/17 17:03 Venous blood - Right Hand Blood Culture - Preliminary NO GROWTH AT 48 HOURS 09/28/17 17:03 Venous blood - Left Arm Blood Culture - Preliminary Specimen has been received and culture in progress. No Growth to date. 09/28/17 17:03 Venous blood - Left Arm Blood Culture - Preliminary NO GROWTH AT 48 HOURS Laboratory Tests 09/28/17 09/28/17 09/29/17 17:03 17:11 03:43 Creatinine 1.29 1.17 Hemoglobin A1c Lactic Acid 1.2 Triglycerides Cholesterol LDL Cholesterol, Calc HDL Cholesterol 09/30/17 09/30/17 04:04 04:04 Creatinine Hemoglobin A1c 7.3 H Lactic Acid Triglycerides 152 H Cholesterol 187 LDL Cholesterol, Calc 126 HDL Cholesterol 31 Phys Exam - Physical Examination Constitutional: NAD HEENT: PERRLA, moist MMs, sclera anicteric, oral pharynx no lesions Neck: no nodes, no JVD, supple Respiratory: no wheezing, no rales, no rhonchi, clear to auscultation bilateral Cardiovascular: RRR, no significant murmur, no rub, gallop Gastrointestinal: soft, non-tender, no distention, positive bowel sounds L foot with post-surgical changes and dressings in place, + edema Musculoskeletal: pulses present Neurological: non-focal, moves all 4 limbs Psychiatric: normal affect, A&O x 3 Skin: no rash, normal turgor, cap refill <2 seconds Dx/Plan (1) Acute osteomyelitis of toe of left foot Code(s): M86.172 - OTHER ACUTE OSTEOMYELITIS, LEFT ANKLE AND FOOT Status: Acute Comment: Left 3rd toe osteomyelitis confirmed by MRI, d/c Zosyn, start Rocephin 2gm IV daily, consult general surgery for evaluation in am (2) Benign essential hypertension Code(s): I10 - ESSENTIAL (PRIMARY) HYPERTENSION Status: Chronic Comment: Change Lisinopril 10mg daily, serial monitoring, titrate BP regimen based on clinical monitoring (3) Diabetes mellitus type 2, uncontrolled Code(s): E11.65 - TYPE 2 DIABETES MELLITUS WITH HYPERGLYCEMIA Status: Chronic Qualifiers: Diabetes mellitus complication detail: with foot ulcer Comment: Continue ISS, Glyburide and Metformin, ADA diet (4) Diabetic neuropathy Code(s): E11.40 - TYPE 2 DIABETES MELLITUS WITH DIABETIC NEUROPATHY, UNSP Status: Chronic Comment: consider Gabapentin for d/c - Plan plan discussed w/ family, continue antibiotics, 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
[2017-09-30] MEDS: cefTRIAXone\\ROCEPHIN 2 GM in Sodium Chloride 0.9% 100 ML IVPB SCH (16:51)
--- NOTE | 2017-09-30 20:29 | EKG ---
Test Reason : PREOP Blood Pressure : / mmHG Vent. Rate : 073 BPM Atrial Rate : 073 BPM P-R Int : 136 ms QRS Dur : 092 ms QT Int : 390 ms P-R-T Axes : 031 031 071 degrees QTc Int : 429 ms Normal sinus rhythm Normal ECG When compared with ECG of 24-AUG-2017 17:24, (Unconfirmed) No significant change was found Confirmed by PIOTR PAREDES, DR. S. ([id number]) on 09/30/2017 8:29:15 PM Referred By: CORA Confirmed By:DR. Mell SALDAÑA MD
[2017-09-30] MEDS: Famotidine 20 MG TAB PO SCH (21:13)
[2017-09-30] MEDS: Sulfameth/Trimethoprim DS 800-160mg TAB PO SCH (21:19)
[2017-10-01] MEDS ORDERED: Ciprofloxacin 500 MG TAB PO SCH ×2 (08:00→20:00)
[2017-10-01] MEDS: Aspirin 81 mg Enteric Coated Tablet PO SCH (10:51)
[2017-10-01] MEDS: metFORMIN 500 MG TAB PO SCH (10:51)
[2017-10-01] MEDS: Lisinopril 10 MG TAB PO SCH (10:51)
[2017-10-01] MEDS: Docusate 100 MG CAP PO SCH (10:52)
[2017-10-01] MEDS: Sulfameth/Trimethoprim DS 800-160mg TAB PO SCH (10:52)
[2017-10-01] MEDS: glyBURIDE 5 MG TAB PO SCH (10:52)
[2017-10-01 11:23] VITALS: BP 155/84; TEMP 98
--- NOTE | 2017-10-01 14:08 | PRG ---
DATE OF SERVICE: 10/01/2017 Mr. Prather is doing well today. He had amputation of his left third toe yesterday, with primary clos ure. The wound looked very good, had a good blood supply and there was no active infection present. I have already discontinued his intravenous antibiotics and order p.o. antibiotics. I recommend dis charge home on oral antibiotics for 10 days. He can follow up in my office in about 2 weeks. He has a postoperative shoe to wear when he is out of bed. He can remove his dressing Wednesday, leave the wo und open, wash the wound with soap and water daily, place antibiotic ointment and Band-Aid. Orders h ave been written in the chart and discharge instructions. I will not be seeing him daily. Please ca ll if needed. Dr. Oates is covering. From a surgical standpoint, the patient is ready to be disch arged home today.
--- NOTE | 2017-10-01 15:24 | PDOC.PN ---
- Subjective Encounter Start Date: 10/01/17 Encounter Start Time: 15:23 Mr. Prather was seen today in follow-up. He does not have any complaints. - Objective Resuscitation Status: Resuscitation Status FULL:Full Resuscitation MAR Reviewed: Yes Vital Signs & Weight: Vital Signs (12 hours) Temp Pulse Resp BP Pulse Ox 10/01/17 11:22 98 F 763 H 16 155/84 H 92 L 10/01/17 08:00 98.1 F 77 16 95 10/01/17 07:36 98.1 F 77 16 129/78 95 10/01/17 05:04 98.1 F 74 16 122/75 93 L Weight Admit Weight 167 lb 3.2 oz Weight 167 lb 3.2 oz I&O: 09/30/17 10/01/17 10/02/17 06:59 06:59 06:59 Intake Total 700 1150 400 Output Total 480 Balance 700 1150 -80 Result Diagrams: 09/30/17 04:04 09/30/17 04:04 Additional Labs: Accuchecks 10/01/17 10/01/17 10/01/17 11:23 08:38 05:01 POC Glucose 155 H 122 H 96 09/30/17 09/30/17 20:03 16:45 POC Glucose 132 H 159 H Phys Exam - Physical Examination HEENT: PERRLA Respiratory: no wheezing, no rales, no rhonchi, clear to auscultation bilateral Cardiovascular: RRR, no significant murmur, no rub Gastrointestinal: soft, non-tender, positive bowel sounds Musculoskeletal: no edema Dx/Plan (1) Acute osteomyelitis of toe of left foot Code(s): M86.172 - OTHER ACUTE OSTEOMYELITIS, LEFT ANKLE AND FOOT Status: Acute Comment: Left 3rd toe osteomyelitis confirmed by MRI, d/c Zosyn, start Rocephin 2gm IV daily, consult general surgery for evaluation in am (2) Diabetic neuropathy Code(s): E11.40 - TYPE 2 DIABETES MELLITUS WITH DIABETIC NEUROPATHY, UNSP Status: Chronic Comment: consider Gabapentin for d/c (3) Benign essential hypertension Code(s): I10 - ESSENTIAL (PRIMARY) HYPERTENSION Status: Chronic Comment: Change Lisinopril 10mg daily, serial monitoring, titrate BP regimen based on clinical monitoring (4) Diabetes mellitus type 2, uncontrolled Code(s): E11.65 - TYPE 2 DIABETES MELLITUS WITH HYPERGLYCEMIA Status: Chronic Qualifiers: Diabetes mellitus complication detail: with foot ulcer Comment: Continue ISS, Glyburide and Metformin, ADA diet - Plan * Diabetic foot infection with osteomyelitis- he has been cleared for discharge by Surgery * DM- blood glucose is stable * HTN- blood pressure is stable * Will discharge home.
--- NOTE | 2017-10-01 20:17 | DIS ---
DATE OF ADMISSION: 09/28/2017 DATE OF DISCHARGE: 10/01/2017 PRIMARY CARE PHYSICIAN: Sebastian Parkinson MD DISCHARGE DISPOSITION: Home. PRIMARY DISCHARGE DIAGNOSES: 1. Osteomyelitis of the toe on the left foot. 2. Diabetes mellitus, type 2. 3. Hypertension. 4. Dyslipidemia. DISCHARGE MEDICATIONS: Ciprofloxacin 500 mg twice daily for 10 days as well as Bactrim DS 1 tablet t wice a day for 10 days, aspirin 81 mg daily, glyburide 5 mg daily, lisinopril 5 mg daily, metformin 1 000 mg twice a day. PROCEDURES DONE DURING ADMISSION: The patient had an MRI of his lower extremity showing osteomyeliti s involving the proximal and middle phalanges of the third toe on the left foot. CODE STATUS: FULL CODE. HOSPITAL COURSE: Mr. Prather is a pleasant 61-year-old gentleman, who presented to the hospital with pain, swelling, and purulent drainage from his left foot. He was found to have osteomyelitis of his toe. He had failed outpatient treatment and was admitted and started on broad-spectrum IV antibiotic s. He was seen by General Surgery. He underwent amputation of the affected toe. The wound was tyler kellen and closed, and he is being sent home on oral antibiotics as well as an [facility]loading [facility].
== END 2017-10-01 16:24 | disposition home or self-care (01) | DRG 617 ==
LOC: ERS 16:23 → T4-A 18:00
PROVIDERS: ADMIT Emergency Medicine; ATTEND Emergency Medicine
PROC: 0Y6U0Z1 Detachment at Left 3rd Toe, High, Open Approach (ICD-10-PCS; principal; 2017-09-30)
PROC: 0HBNXZZ Excision of Left Foot Skin, External Approach (ICD-10-PCS; 2017-09-30)
DX: E11.621 Type 2 diabetes mellitus with foot ulcer (principal); M86.172 Other acute osteomyelitis, left ankle and foot; I10 Essential (primary) hypertension; E11.40 Type 2 diabetes mellitus with diabetic neuropathy, unspecified; E11.65 Type 2 diabetes mellitus with hyperglycemia; I73.9 Peripheral vascular disease, unspecified; Z89.412 Acquired absence of left great toe; Z89.422 Acquired absence of other left toe(s); Z89.022 Acquired absence of left finger(s); Z87.891 Personal history of nicotine dependence; Z79.82 Long term (current) use of aspirin; Z79.84 Long term (current) use of oral hypoglycemic drugs; E78.00 Pure hypercholesterolemia, unspecified; L97.529 Non-pressure chronic ulcer of other part of left foot with unspecified severity
CPT/HCPCS: 36415; 36416; 71046; 80048; 80053; 80061; 83036; 83605; 85007; 85025; 85027; 87040; 87070; 87077; 87186; 87205; 88305; 88311; 93005; 93010; 96365; 96367; J0696; J2250; J2405; J2543; J3010; J3370; J7050; Q0162

== ENCOUNTER 2018-01-20 08:12 | Emergency (ER) | payer MEDICARE, MEDICAID ==
[2018-01-20] MEDS ORDERED: Fluorescein Opthalmic Strip ONE (08:30)
[2018-01-20] MEDS ORDERED: Proparacaine 0.5% Opth 15 ML BOT ONE (08:31)
== END 2018-01-20 09:03 | disposition home or self-care (01) ==
LOC: ERS 08:12
DX: H53.8 Other visual disturbances (principal); E11.9 Type 2 diabetes mellitus without complications; E78.5 Hyperlipidemia, unspecified; I10 Essential (primary) hypertension; Z87.891 Personal history of nicotine dependence
CPT/HCPCS: 36416; 99284

== ENCOUNTER 2018-12-06 12:00 | Inpatient (IN) | payer MEDICARE, MEDICAID ==
--- NOTE | 2018-12-06 13:05 | RAD ---
XR Foot Rt 3 View STANDARD History: Pain Comparison: None. Findings: Large erosion of the distal phalanx small toe at the tuft. There is dorsal scalloping of th e cortex. Age-indeterminate fracture through the mid diaphysis phalanx small toe. Mild vascular calcifications. Advanced degenerative disease of the hindfoot. Impression: 1. Erosion of the tuft distal phalanx with dorsal scalloping is concerning for osteomyelitis. If ther e are no clinical symptoms of osteomyelitis, MRI with without contrast would be recommended to evaluate for a soft tissue tumor. 2. Age-indeterminate fracture through the mid diaphysis small toe middle phalanx.
[2018-12-06 14:05] LABS: #Eosinphils 0.1 thou/uL (0.0-0.7); #Lymphocytes 1.5 thou/uL (1.20-3.40); #Monocytes 0.9 thou/uL (0.11-0.59); #Neutrophils 8.4 thou/uL (1.40-6.50); %Basophils 0.2 % (0.0-1.0); %Eosinophils 0.9 % (0.0-10.0); %Lymphocytes 14.2 % (21.0-51.0); %Monocytes 8.2 % (0.0-10.0); %Neutrophils 76.5 % (42.0-75.0); Hemoglobin 13.2 g/dL (14.0-18.0); Mean Corpuscular HGB CONC 34.4 g/dL (32.0-36.0); Mean Corpuscular Hemoglobin 31.4 pg (27.0-31.0); Mean Corpuscular Volume 91.2 fL (78.0-98.0); Mean Platelet Volume 7.9 fL (7.4-10.4); Platelet Count 210 thou/uL (130-400); RBC Distribution Width 11.1 % (11.5-14.5); Red Blood Cell (RBC) Count 4.21 mill/uL (4.70-6.10); White Blood Cell (WBC) Count 10.9 thou/uL (4.8-10.8)
[2018-12-06] MEDS ORDERED: Piperacillin/Tazobactam 3.375 GM VIAL ONE (14:11)
[2018-12-06] MEDS ORDERED: Morphine 2 MG/ML SYRINGE SLOW IVP SCH (14:15)
[2018-12-06] MEDS ORDERED: Fentanyl 100 MCG/2 ML VIAL ONE (14:18)
[2018-12-06 14:32] LABS: ALT (SGPT) 10 U/L (8-55); AST (SGOT) 14 U/L (5-34); Albumin 4.3 g/dL (3.4-4.8); Alkaline Phosphatase 84 U/L (40-150); Anion Gap 12 mmol/L (10-20); BUN (Urea Nitrogen) 29 mg/dL (8.4-25.7); Bilirubin, Total 0.8 mg/dL (0.2-1.2); Calc. Creatinine Clearance 0 mL/min (70-130); Calcium 9.9 mg/dL (7.8-10.44); Carbon Dioxide 27 mmol/L (23-31); Chloride 102 mmol/L (98-107); Estimated GFR-MDRD 46; Globulin 3.3 g/dL (2.4-3.5); Glucose 183 mg/dL (80-115); Protein, Total 7.6 g/dL (5.8-8.1); Sodium 136 mmol/L (136-145)
[2018-12-06] MEDS ORDERED: Meropenem 1 GM in Sodium Chloride 0.9% 100 ML IVPB SCH (15:00)
[2018-12-06] MEDS ORDERED: MEROPENEM 1 GM/50 ML 1 GM in Premix Bag 1 BAG IVPB SCH (15:15)
[2018-12-06] MEDS ORDERED: HYDROcodone/Acetaminophen 5/325 mg Tablet PO PRN (17:11)
[2018-12-06] MEDS ORDERED: Dextrose 5% in Water 1,000 ML IV PRN (17:16)
[2018-12-06] MEDS ORDERED: Dextrose 50% Abboject 50 ML SYRINGE SLOW IVP PRN (17:16)
--- NOTE | 2018-12-06 18:29 | ULT ---
RIGHT LOWER EXTREMITY VENOUS DOPPLER ULTRASOUND: 12/06/18 COMPARISON: None. HISTORY: Calf pain, assess for DVT. TECHNIQUE: Multiplanar villegas scale sonographic imaging of the venous structures right lower extremity obtained wi th color flow and spectral Doppler analysis. FINDINGS: Right common femoral vein, greater saphenous vein, profunda femoral vein, femoral vein, popliteal vei n, and posterior tibial vein are patent. Normal blood flow, augmentation, and compression within the deep venous system on the right. No evidence for deep venous thrombosis. IMPRESSION: No evidence for deep venous thrombosis of the right lower extremity. POS: OFF
[2018-12-06] MEDS: Sodium Chloride 0.9% 1,000 ML IV SCH (18:35)
[2018-12-06 19:26] LABS: Lactic Acid 1.1 mmol/L (0.5-2.2)
[2018-12-06] MEDS: Heparin 5,000 UNITS/ML VIAL SC SCH (21:45)
[2018-12-06] MEDS: HumaLOG 300 UNITS/3 ML VIAL SC PRN (21:45)
[2018-12-06] MEDS: Famotidine 20 MG TAB PO SCH (21:46)
--- NOTE | 2018-12-06 22:05 | HP ---
CHIEF COMPLAINT: Foot pain. HISTORY OF PRESENT ILLNESS: This is a 63-year-old man, who reported to the emergency room today with complaints of right leg pain. Reports that he has had redness, numbness, tingling, pain from his foot, fifth metatarsal, and reports that it goes up to his knee. Reports he is a diabetic and was taken off his insulin. Reports that he has had similar issues on his left and has had several toe amputations. Does have a past medical history pertinent for hyperlipidemia, high cholesterol, diabetes type 2, and hypertension. During evaluation in the ER, the patient had an x-ray of the right foot, which showed a large erosion of the distal phalanx small toe to the tuft, dorsal scalloping of the cortex, mild vascular calcifications, advanced degenerative disease of the hind foot, concerning for osteomyelitis. Lab work in the ER, white blood cell count 10.9, hemoglobin 13.2, hematocrit 38.4, and platelet count 210. Creatinine today was 1.54. When we checked it in September of 2017, it was 1.14. BUN is 29. Estimated GFR of 46. In September of 2017, it was 265. Glucose here was 183. Lactic acid was 3.3. CRP is 6.55. All other lab results are unremarkable. The patient was given some vanc and meropenem in the emergency room, some fentanyl for pain, and started on NS at 75 mL per hour. The patient is not the best historian, is Tajik-speaking only. Exam and HPI were done through the use of an graining press operator. He reports that Dr. Parkinson is his PCP, whom he saw 2 weeks ago and has an appointment with him again in a week. Reports that the pain in his foot started 3 days ago. Denies any fever or chills. Reports that he did have an infection on his left toes, which prompted amputation. He is going to be admitted to the [facility] unit for antibiotics and evaluation for further management. PAST MEDICAL HISTORY: Pertinent for diabetes type 2, dyslipidemia, hypertension, and history of testicular torsion. PAST SURGICAL HISTORY: Left fifth finger distal phalanx amputation, left first and second toe amputation, and torsion repair. SOCIAL HISTORY: The patient did smoke a pack of cigarettes per day for 10 years, quit 20 years ago. Denies any alcohol or drug use. Does live with his friends and does not have any family members in the area. FAMILY HISTORY: Reports both parents are . Denies any known medical history. ALLERGIES: HE REPORTS PENICILLINS AND MORPHINE. REVIEW OF SYSTEMS: The patient reports right leg pain and right foot pain. Reports that has felt warm, tender to the touch for several days. PHYSICAL EXAMINATION: VITAL SIGNS: Blood pressure is 110/64, pulse is 76, respirations are 14, temperature is 98.8. CONSTITUTIONAL: The patient appears nontoxic, is alert and oriented to person, place and time. NECK: Normal range of motion. Trachea is midline. RESPIRATORY/CHEST: Breath sounds are clear. No findings of any respiratory distress. CARDIOVASCULAR: Regular heart rate and rhythm. Heart sounds are normal. ABDOMEN: Nontender. Bowel sounds are heard. BACK: Normal range of motion. NEUROLOGIC: The patient is oriented to person, place, and time. Speech is normal. The patient has sensation to bilateral lower extremities. EXTREMITIES: Lower extremities, normal range of motion. Sensation intact. The patient is missing first and second toe on left foot. Right fifth metatarsal has some redness, swelling, which extends dorsal side of his right foot, has some tenderness extending up to the right calf with some tenderness. PLAN AND ASSESSMENT: 1. Right fifth metatarsal infection with worry for osteomyelitis. The patient was started on cefepime and vanc in the emergency room. We will continue with the Zosyn and vanc. We will ask General Surgery for consultation. Normal saline at 75 mL per hour. Pain meds as needed. Recheck CBC and comp met in the morning. 2. Diabetes. Accu-Cheks a.c. and at bedtime. We will add sliding scale insulin as needed. 3. Hyperlipidemia. Restart home medications. 4. Hypertension. Restart home medications. We will trend. 5. Gastrointestinal and deep venous thrombosis prophylaxis have been started. 6. Order an ultrasound of the right leg to rule out a DVT cause for right calf pain. 7. Hospital course is depending on clinical findings. Job ID: [id number]
[2018-12-07] MEDS: Piperacillin/Tazobactam 3.375 GM in Sodium Chloride 0.9% 100 ML IVPB SCH ×5 (01:34→21:44)
[2018-12-07] MEDS: Sodium Chloride 0.9% 1,000 ML IV SCH ×2 (01:34→12:40)
[2018-12-07 05:23] LABS: #Eosinphils 0.1 thou/uL (0.0-0.7); #Lymphocytes 1.8 thou/uL (1.20-3.40); #Monocytes 0.7 thou/uL (0.11-0.59); #Neutrophils 4.4 thou/uL (1.40-6.50); %Basophils 0.6 % (0.0-1.0); %Eosinophils 1.8 % (0.0-10.0); %Lymphocytes 25.5 % (21.0-51.0); %Monocytes 10.3 % (0.0-10.0); %Neutrophils 61.8 % (42.0-75.0); Hemoglobin 12.3 g/dL (14.0-18.0); Mean Corpuscular HGB CONC 34.5 g/dL (32.0-36.0); Mean Corpuscular Hemoglobin 31.3 pg (27.0-31.0); Mean Corpuscular Volume 90.7 fL (78.0-98.0); Mean Platelet Volume 7.9 fL (7.4-10.4); Platelet Count 189 thou/uL (130-400); Red Blood Cell (RBC) Count 3.92 mill/uL (4.70-6.10); White Blood Cell (WBC) Count 7.1 thou/uL (4.8-10.8)
[2018-12-07 05:50] LABS: ALT (SGPT) 10 U/L (8-55); AST (SGOT) 17 U/L (5-34); Albumin 3.5 g/dL (3.4-4.8); Alkaline Phosphatase 70 U/L (40-150); Anion Gap 13 mmol/L (10-20); BUN (Urea Nitrogen) 22 mg/dL (8.4-25.7); Bilirubin, Total 0.7 mg/dL (0.2-1.2); Calc. Creatinine Clearance 72 mL/min (70-130); Calcium 9.3 mg/dL (7.8-10.44); Carbon Dioxide 23 mmol/L (23-31); Chloride 105 mmol/L (98-107); Estimated GFR-MDRD 62; Globulin 3.6 g/dL (2.4-3.5); Glucose 182 mg/dL (80-115); Potassium 4.3 mmol/L (3.5-5.1); Protein, Total 7.1 g/dL (5.8-8.1); Sodium 137 mmol/L (136-145)
[2018-12-07] MEDS: HumaLOG 300 UNITS/3 ML VIAL SC PRN ×2 (06:04→21:44)
[2018-12-07] MEDS: Heparin 5,000 UNITS/ML VIAL SC SCH ×3 (08:31→21:43)
[2018-12-07] MEDS: Famotidine 20 MG TAB PO SCH ×2 (08:32→21:43)
--- NOTE | 2018-12-07 08:39 | CON ---
DATE OF CONSULTATION: 12/07/2018 REASON FOR CONSULTATION: Right 5th toe infection. HISTORY OF PRESENT ILLNESS: The patient is a 63-year-old diabetic male. He has a history of three toe amputations on his left foot previously. He presented to the emergency room yesterday complaining of foot pain. He believes that he had issues with his right 5th toe for about 3 days. He had x-rays of his foot that revealed destruction of the distal phalanx of the right 5th toe consistent with osteomyelitis. He also had a vascular ultrasound to rule out deep venous thrombosis of right lower extremity, which was negative. In the emergency room, it was noted that his white blood cell count was elevated at 10.9, this morning it is 7.1, however. He was empirically started on antibiotics using meropenem, then switched to Zosyn and vancomycin. The patient has no complaints currently. PAST MEDICAL HISTORY: Hypertension, diabetes mellitus. PAST SURGICAL HISTORY: Toe amputation of the left foot on 2 occasions, one in 2014, once in 2018. MEDICATIONS: Currently in the hospital include his antibiotics. I am not certain if he is receiving diabetic medication at home. ALLERGIES: PENICILLIN AND MORPHINE. PERSONAL AND SOCIAL HISTORY: He is a former smoker. He denies alcohol use. He lives with friends. In spite of living in the [place] for over 40 years, he still speaks essentially no Samoan. REVIEW OF SYSTEMS: Otherwise, unremarkable. FAMILY HISTORY: Noncontributory. PHYSICAL EXAMINATION: VITAL SIGNS: He is afebrile, pulse 75, and blood pressure 170/82. GENERAL: He is a well-developed, well-nourished, pleasant male, resting in bed, in no acute distress. He is alert and oriented x3. HEAD, EYES, EARS, NOSE, AND THROAT: Unremarkable. NECK: Supple without mass or tenderness. LUNGS: Clear to auscultation throughout. CARDIAC: Regular rate and rhythm without murmur. ABDOMEN: Soft, nontender, and nondistended. EXTREMITIES: He has palpable femoral pulses bilaterally. He has well-healed amputation on his left foot. On his right foot, he has a callus on the lateral aspect of his right 5th toe. Pressure on this reveals a punctate opening in the center of the callus from which purulent material and air is expressed consistent with underlying infection of the toe. ASSESSMENT AND PLAN: The patient with obvious osteomyelitis of right 5th toe. This is not amenable to healing and I therefore recommend right 5th toe amputation. I have discussed this with the patient. Given the extent of his current infection, I suspect that he will require an open amputation with healing by secondary intention. He understands and agrees to proceed with surgery at this time. Job ID: [id number]
[2018-12-07] MEDS ORDERED: Morphine 4 MG/ML VIAL SLOW IVP PRN (09:09)
[2018-12-07] MEDS ORDERED: Bupivacaine/Epinephrine 0.25% 30 ML VIAL ONE (13:55)
[2018-12-07] MEDS ORDERED: Sodium Chloride 0.9% 100 ML ONE (14:05)
[2018-12-07] MEDS ORDERED: Piperacillin/Tazobactam 3.375 GM VIAL ONE (14:05)
[2018-12-07] MEDS ORDERED: Fentanyl 100 MCG/2 ML VIAL ONE (14:06)
[2018-12-07] MEDS ORDERED: Promethazine HCl 25 MG/ML VIAL SLOW IVP PRN (14:48)
[2018-12-07] MEDS ORDERED: Promethazine HCl 25 MG/ML VIAL IM PRN (14:48)
[2018-12-07] MEDS ORDERED: Ondansetron HCl/PF 4 MG/2 ML Vial IVP PRN (14:48)
[2018-12-07] MEDS: Vancomycin HCl 1.25 GM in Sodium Chloride 0.9% 250 ML 250 ML IVPB SCH (16:54)
[2018-12-07] MEDS ORDERED: Ondansetron PF 4 MG/2 ML Vial ONE (17:01)
[2018-12-07] MEDS ORDERED: Lidocaine 1% PF 5 ML VIAL ONE (17:01)
[2018-12-07] MEDS ORDERED: ePHEDrine 50 MG/ML VIAL ONE (17:01)
[2018-12-07] MEDS ORDERED: PROPOFOL 200 MG/20 ML VIAL ONE (17:01)
[2018-12-07] MEDS ORDERED: Indocyanine Green 25 MG/10 ML VIAL ONE (17:01)
[2018-12-07] MEDS ORDERED: PHENYLEPHRINE-NS 100 MCG/ML 10 ML SYRINGE ONE (17:01)
--- NOTE | 2018-12-07 17:28 | PDOC.HOSPP ---
- Subjective Subjective: Pt seen for followup re: toe osteomyelitis. c/o pain right 5th toe. No fevers. - Objective Vital Signs & Weight: Vital Signs (12 hours) Temp Pulse Resp BP Pulse Ox 12/07/18 15:30 98.0 F 80 16 164/69 H 99 12/07/18 11:24 97.6 F 72 18 168/97 H 95 12/07/18 08:31 97 12/07/18 07:38 98.1 F 75 16 170/82 H 97 Weight Weight 175 lb I&O: 12/06/18 12/07/18 12/08/18 06:59 06:59 06:59 Intake Total 1150 Balance 1150 Result Diagrams: 12/07/18 04:55 12/07/18 04:55 Additional Labs: Accuchecks 12/07/18 12/07/18 12/07/18 15:51 11:28 06:00 POC Glucose 129 H 155 H 162 H 12/06/18 12/06/18 20:56 18:58 POC Glucose 237 H 221 H Labs and MARs reviewed by me. ROS - Review of Systems All systems: All other ROS were reviewed and found negative. Cardiovascular: denies: chest pain, palpitations, orthopnea, paroxysmal noc. dyspnea, edema, light headedness Gastrointestinal: denies: nausea, vomitting, abdominal pain, diarrhea, constipation, melena, hematochezia Musculoskeletal: reports: foot pain - Medication Medications: Active Medications Generic Name Dose Route Start Last Admin Trade Name Freq PRN Reason Stop Dose Admin Famotidine 20 mg 12/06/18 21:00 12/07/18 08:32 Pepcid PO Not Given BID MONICA Heparin Sodium (Porcine) 5,000 units 12/06/18 21:00 12/07/18 16:01 Heparin SC 5,000 units TID MONICA Administration Sodium Chloride 1,000 mls @ 100 mls/hr 12/06/18 17:15 12/07/18 12:40 Normal Saline 0.9% IV Not Given .Q10H MONICA Vancomycin HCl 1.25 gm/ Sodium 250 mls @ 166.667 mls/hr 12/07/18 15:00 16:54 Chloride IVPB 250 mls 1500 MONICA Administration Piperacillin Sod/Tazobactam 100 mls @ 200 mls/hr 12/07/18 16:00 07/31/19 16: 01 Sod 3.375 gm/ Sodium Chloride IVPB 100 mls 0400,1000,1600,2200 MONICA Administration Insulin Human Lispro 0 units 12/06/18 17:16 12/07/18 06:04 Humalog SC 2 unit .MILD SLIDING SCALE PRN Administration Mild Correctional Scale Morphine Sulfate 4 mg 12/07/18 09:09 12/07/18 09:41 Morphine SLOW IVP 4 mg Q4H PRN Administration Pain - Exam NAD Eye: anicteric sclera ENT: normocephalic atraumatic Neck: supple Heart: RRR Respiratory: CTAB Gastrointestinal: soft Extremities: no edema Skin: normal turgor (wound over right 5th toe) Psychiatric: normal affect, normal behavior Hosp A/P (1) Osteomyelitis of fifth toe of right foot Code(s): M86.9 - OSTEOMYELITIS, UNSPECIFIED Status: Acute (2) HTN (hypertension) Code(s): I10 - ESSENTIAL (PRIMARY) HYPERTENSION Status: Chronic (3) DM2 (diabetes mellitus, type 2) Status: Chronic - Plan continue antibiotics, PT/OT, out of bed/ambulate Continue atenolol through perioperative period. Resume lisinopril. Continue accuchecks, insulin sliding scale. PRN IV morphine for pain control.
[2018-12-08] MEDS: Sodium Chloride 0.9% 1,000 ML IV SCH ×3 (00:27→20:24)
[2018-12-08] MEDS: Piperacillin/Tazobactam 3.375 GM in Sodium Chloride 0.9% 100 ML IVPB SCH ×4 (03:14→20:49)
[2018-12-08] MEDS: HumaLOG 300 UNITS/3 ML VIAL SC PRN ×3 (05:28→20:48)
[2018-12-08] MEDS: Acetaminophen 325 MG TAB PO PRN (05:30)
[2018-12-08] MEDS: Famotidine 20 MG TAB PO SCH ×2 (08:29→20:48)
[2018-12-08] MEDS: Heparin 5,000 UNITS/ML VIAL SC SCH ×3 (08:30→20:48)
[2018-12-08] MEDS: Atenolol 25 MG TAB PO SCH (08:30)
[2018-12-08] MEDS: Lisinopril 5 MG TAB PO SCH (08:30)
--- NOTE | 2018-12-08 09:54 | PRG ---
DATE OF SERVICE: 12/08/2018 SUBJECTIVE: The patient is resting comfortably in his bed on the surgical floor. He is status post right fifth toe amputation yesterday. He had an obvious suppurative osteomyelitis. Because of the extent of the infection, the wound was left open to heal by secondary intention. Wound Care team has been consulted, but has not yet seen the patient. He has no complaints today. OBJECTIVE: VITAL SIGNS: He is afebrile. Vital signs are within normal limits. EXTREMITIES: Dressing is intact on his right foot and exam is otherwise unchanged. LABORATORY DATA: CBC was not obtained today. Cultures reveal gram-positive cocci. Final cultures of course still pending. ASSESSMENT AND PLAN: The patient with right fifth toe osteomyelitis, status post digital amputation yesterday. Wound Care team will perform dressing changes today. Initiate culture specific antibiotics when these are available. Wound Care will have to be arranged as well such that he may be stable for ready for discharge in the next couple of days. Job ID: [id number]
--- NOTE | 2018-12-08 10:06 | PDOC.HOSPP ---
- Subjective Subjective: Patient seen and examined. No new complaints. No overnight events - Objective Vital Signs & Weight: Vital Signs (12 hours) Temp Pulse Resp BP BP Pulse Ox 12/08/18 08:30 74 143/85 H 12/08/18 07:43 98.3 F 74 18 143/85 H 95 12/08/18 04:34 97.8 F 68 16 165/74 H 96 12/08/18 00:31 98.2 F 74 18 126/65 95 Weight Weight 175 lb I&O: 12/07/18 12/08/18 12/09/18 06:59 06:59 06:59 Intake Total 1150 1430 Output Total 400 Balance 1150 1030 Result Diagrams: 12/07/18 04:55 12/07/18 04:55 Additional Labs: Accuchecks 12/08/18 12/07/18 12/07/18 05:20 20:57 15:51 POC Glucose 179 H 285 H 129 H 12/07/18 11:28 POC Glucose 155 H ROS - Review of Systems All systems: All other ROS were reviewed and found negative. Constitutional: denies: fever, chills, sweats, weakness, malaise, other Eyes: denies: pain, vision change, conjunctivae inflammation, eyelid inflammation, redness, other ENT: denies: ear pain, ear discharge, nose pain, nose discharge, nose congestion , mouth pain, mouth swelling, throat pain, throat swelling, other Respiratory: denies: cough, dry, shortness of breath, hemoptysis, SOB with excertion, pleuritic pain, sputum, wheezing, other Cardiovascular: denies: chest pain, palpitations, orthopnea, paroxysmal noc. dyspnea, edema, light headedness, other Gastrointestinal: denies: nausea, vomitting, abdominal pain, diarrhea, constipation, melena, hematochezia, other Genitourinary: denies: dysuria, frequency, incontinence, hematuria, retention, other Musculoskeletal: denies: neck pain, shoulder pain, arm pain, back pain, hand pain, leg pain, foot pain, other Skin: denies: rash, lesions, pia, bruising, other - Medication Medications: Active Medications Generic Name Dose Route Start Last Admin Trade Name Freq PRN Reason Stop Dose Admin Acetaminophen 650 mg 12/06/18 17:11 12/08/18 05:30 Tylenol PO 650 mg Q4H PRN Administration Headache/Fever/Mild Pain (1-3) Atenolol 25 mg 12/08/18 09:00 12/08/18 08:30 Tenormin PO 25 mg DAILY MONICA Administration Famotidine 20 mg 12/06/18 21:00 12/08/18 08:29 Pepcid PO 20 mg BID MONICA Administration Heparin Sodium (Porcine) 5,000 units 12/06/18 21:00 12/08/18 08:30 Heparin SC 5,000 units TID MONICA Administration Sodium Chloride 1,000 mls @ 100 mls/hr 12/06/18 17:15 12/08/18 00:27 Normal Saline 0.9% IV Not Given .Q10H MONICA Vancomycin HCl 1.25 gm/ Sodium 250 mls @ 166.667 mls/hr 12/07/18 15:00 16:54 Chloride IVPB 250 mls 1500 MONICA Administration Piperacillin Sod/Tazobactam 100 mls @ 200 mls/hr 12/07/18 16:00 12/08/18 03: 14 Sod 3.375 gm/ Sodium Chloride IVPB 100 mls 0400,1000,1600,2200 MONICA Administration Insulin Human Lispro 0 units 12/06/18 17:16 12/08/18 05:28 Humalog SC 2 unit .MILD SLIDING SCALE PRN Administration Mild Correctional Scale Lisinopril 5 mg 12/08/18 09:00 12/08/18 08:30 Zestril PO 5 mg DAILY MONICA Administration Morphine Sulfate 4 mg 12/07/18 09:09 12/07/18 09:41 Morphine SLOW IVP 4 mg Q4H PRN Administration Pain - Exam NAD, awake alert Eye: PERRL, anicteric sclera ENT: normocephalic atraumatic, no oropharyngeal lesions Neck: supple, symmetric, no JVD Heart: RRR, no murmur, no gallops, no rubs Respiratory: CTAB, no wheezes, no rales Gastrointestinal: soft, non-tender, non-distended, normal bowel sounds Extremities: no cyanosis, no clubbing, no edema (amputation site with dressing) Skin: normal turgor, no lesions, no rashes Neurological: CN's grossly intact, normal sensation to touch, no focal deficits Musculoskeletal: normal tone, normal strength Psychiatric: normal affect, normal behavior Hosp A/P (1) Osteomyelitis of fifth toe of right foot Code(s): M86.9 - OSTEOMYELITIS, UNSPECIFIED Status: Acute (2) DM2 (diabetes mellitus, type 2) Status: Chronic (3) Diabetic neuropathy Code(s): E11.40 - TYPE 2 DIABETES MELLITUS WITH DIABETIC NEUROPATHY, UNSP Status: Chronic (4) HTN (hypertension) Code(s): I10 - ESSENTIAL (PRIMARY) HYPERTENSION Status: Chronic (5) Obesity (BMI 30.0-34.9) Code(s): E66.9 - OBESITY, UNSPECIFIED Status: Chronic - Plan old records reviewed/req, continue antibiotics continue vancomycin and zosyn medication reviewed as below symptomatic treatment wound care
[2018-12-08 14:38] LABS: Vancomycin, Trough 7.1 ug/mL
[2018-12-08] MEDS: Vancomycin HCl 1.25 GM in Sodium Chloride 0.9% 250 ML 250 ML IVPB SCH (15:29)
[2018-12-08] MEDS ORDERED: Vancomycin HCl 1 GM in Premix Bag 1 BAG IVPB SCH (15:45)
--- NOTE | 2018-12-08 20:15 | OP ---
DATE OF PROCEDURE: 12/07/2018 PREOPERATIVE DIAGNOSIS: Diabetic infection of right fifth toe with osteomyelitis. POSTOPERATIVE DIAGNOSIS: Diabetic infection of right fifth toe with osteomyelitis. PROCEDURE PERFORMED: Right fifth toe transphalangeal amputation with SPY fluorescence imaging to assure appropriate vascular perfusion. ANESTHESIA: General with laryngeal mask airway. INDICATIONS: The patient is a 63-year-old diabetic male. He presented with symptoms regarding his right foot. Imaging shows osteomyelitis of the bone with destruction of the underlying bone. Examination revealed a draining sinus associated with a callus on the lateral aspect of the fifth toe, from which purulent material and gaseous material were able to be expressed. I recommended amputation of this toe. DESCRIPTION OF OPERATION: Informed consent was obtained. The patient was taken to the operating room, where general anesthesia was obtained with the patient in supine position. The patient was administered ICG fluorescent dye. SPY imaging was then performed, which revealed excellent vascular perfusion of the entire lower leg and foot up to the area of planned amputation. The foot was then prepped with Betadine and draped in sterile fashion. Local anesthetic was infiltrated proximally with 0.25% Marcaine with epinephrine. A circumferential incision was created just distal to the MTP joint. Dissection was carried through skin and subcutaneous tissue. The toe was disarticulated at the PIP joint and passed off the field. I debrided the head of the underlying phalanx. This was performed with rongeurs. Hemostasis was obtained with electrocautery. Some thickened surrounding skin was debrided. The wound was then packed with gauze and dry gauze dressing. An Gideon wrap was placed externally. There were no complications. The patient tolerated the procedure well and was taken to recovery room in stable condition. Job ID: [id number]
[2018-12-09] MEDS: Vancomycin HCl 1 GM in Premix Bag 1 BAG IVPB SCH ×2 (02:07→16:00)
[2018-12-09] MEDS: Piperacillin/Tazobactam 3.375 GM in Sodium Chloride 0.9% 100 ML IVPB SCH ×4 (03:47→21:18)
[2018-12-09] MEDS: Sodium Chloride 0.9% 1,000 ML IV SCH ×2 (04:39→16:02)
[2018-12-09] MEDS: Famotidine 20 MG TAB PO SCH ×2 (08:28→20:47)
[2018-12-09] MEDS: Lisinopril 5 MG TAB PO SCH (08:28)
[2018-12-09] MEDS: Atenolol 25 MG TAB PO SCH (08:28)
[2018-12-09] MEDS: Heparin 5,000 UNITS/ML VIAL SC SCH ×3 (08:29→20:47)
[2018-12-09] MEDS: Acetaminophen 325 MG TAB PO PRN (10:08)
--- NOTE | 2018-12-09 10:50 | PDOC.HOSPP ---
- Subjective Subjective: Patient seen and examined. No new complaints. No overnight events - Objective Vital Signs & Weight: Vital Signs (12 hours) Temp Pulse Resp BP BP Pulse Ox 12/09/18 08:28 71 159/88 H 12/09/18 08:00 98.2 F 71 14 159/88 H 97 12/09/18 04:01 98.1 F 66 18 117/72 99 12/08/18 23:46 98.2 F 66 16 147/80 H 96 Weight Admit Weight 175 lb Weight 175 lb I&O: 12/08/18 12/09/18 12/10/18 06:59 06:59 06:59 Intake Total 1430 Output Total 400 Balance 1030 Result Diagrams: 12/07/18 04:55 12/07/18 04:55 Additional Labs: Accuchecks 12/09/18 12/08/18 12/08/18 05:52 20:46 16:05 POC Glucose 171 H 240 H 188 H 12/08/18 11:49 POC Glucose 232 H ROS - Review of Systems All systems: All other ROS were reviewed and found negative. Constitutional: denies: fever, chills, sweats, weakness, malaise, other Eyes: denies: pain, vision change, conjunctivae inflammation, eyelid inflammation, redness, other ENT: denies: ear pain, ear discharge, nose pain, nose discharge, nose congestion , mouth pain, mouth swelling, throat pain, throat swelling, other Respiratory: denies: cough, dry, shortness of breath, hemoptysis, SOB with excertion, pleuritic pain, sputum, wheezing, other Cardiovascular: denies: chest pain, palpitations, orthopnea, paroxysmal noc. dyspnea, edema, light headedness, other Gastrointestinal: denies: nausea, vomitting, abdominal pain, diarrhea, constipation, melena, hematochezia, other Genitourinary: denies: dysuria, frequency, incontinence, hematuria, retention, other Musculoskeletal: denies: neck pain, shoulder pain, arm pain, back pain, hand pain, leg pain, foot pain, other Skin: denies: rash, lesions, pia, bruising, other - Medication Medications: Active Medications Generic Name Dose Route Start Last Admin Trade Name Freq PRN Reason Stop Dose Admin Acetaminophen 650 mg 12/06/18 17:11 12/09/18 10:08 Tylenol PO 650 mg Q4H PRN Administration Headache/Fever/Mild Pain (1-3) Hydrocodone Bitart/Acetaminophen 1 tab 12/06/18 17:11 12/08/18 16:46 [place] 5/325 PO 1 tab Q4H PRN Administration Moderate Pain (4-6) Atenolol 25 mg 12/08/18 09:00 12/09/18 08:28 Tenormin PO 25 mg DAILY MONICA Administration Famotidine 20 mg 12/06/18 21:00 12/09/18 08:28 Pepcid PO 20 mg BID MONICA Administration Heparin Sodium (Porcine) 5,000 units 12/06/18 21:00 12/09/18 08:29 Heparin SC 5,000 units TID MONICA Administration Sodium Chloride 1,000 mls @ 100 mls/hr 12/06/18 17:15 12/09/18 04:39 Normal Saline 0.9% IV Not Given .Q10H MONICA Piperacillin Sod/Tazobactam 100 mls @ 200 mls/hr 12/07/18 16:00 12/09/18 10: 06 Sod 3.375 gm/ Sodium Chloride IVPB 100 mls 0400,1000,1600,2200 MONICA Administration Vancomycin HCl 1 gm/ Device 200 mls @ 200 mls/hr 12/09/18 03:00 12/09/18 02: 07 IVPB 200 mls 0300,1500 MONICA Administration Insulin Human Lispro 0 units 12/06/18 17:16 12/08/18 20:48 Humalog SC 3 unit .MILD SLIDING SCALE PRN Administration Mild Correctional Scale Lisinopril 5 mg 12/08/18 09:00 12/09/18 08:28 Zestril PO 5 mg DAILY MONICA Administration Morphine Sulfate 4 mg 12/07/18 09:09 12/07/18 09:41 Morphine SLOW IVP 4 mg Q4H PRN Administration Pain - Exam NAD, awake alert Eye: PERRL, anicteric sclera ENT: normocephalic atraumatic, no oropharyngeal lesions Neck: supple, symmetric, no JVD Heart: RRR, no murmur, no gallops, no rubs Respiratory: CTAB, no wheezes, no rales, no ronchi Gastrointestinal: soft, non-tender, non-distended, normal bowel sounds Extremities: no cyanosis, no clubbing, no edema (surgical site with dressing) Skin: normal turgor, no lesions, no rashes Neurological: CN's grossly intact, normal sensation to touch, no focal deficits Musculoskeletal: normal tone, normal strength Psychiatric: normal affect, normal behavior Hosp A/P (1) Osteomyelitis of fifth toe of right foot Code(s): M86.9 - OSTEOMYELITIS, UNSPECIFIED Status: Acute Plan: s/p amputation of right 5th toe, follow on pathology report (2) DM2 (diabetes mellitus, type 2) Status: Chronic (3) Diabetic neuropathy Code(s): E11.40 - TYPE 2 DIABETES MELLITUS WITH DIABETIC NEUROPATHY, UNSP Status: Chronic (4) HTN (hypertension) Code(s): I10 - ESSENTIAL (PRIMARY) HYPERTENSION Status: Chronic (5) Obesity (BMI 30.0-34.9) Code(s): E66.9 - OBESITY, UNSPECIFIED Status: Chronic - Plan old records reviewed/req, continue antibiotics will need wound care arrangement continue current antibiotics on discharge will change to oral keflex await pathology report possible discharge tomorrow
[2018-12-09] MEDS: HumaLOG 300 UNITS/3 ML VIAL SC PRN (12:10)
--- NOTE | 2018-12-09 16:07 | PRG ---
DATE OF SERVICE: 12/09/2018 SUBJECTIVE: Mr. Semaj Prather is postoperative day #2 from right 5th toe amputation for osteomyelitis. He has no complaints. He is ambulating with assistance of physical therapy and a walker. He is supposed to be heel weightbearing. Dressings have been changed this past two days per the Wound Care Team. It has already been changed today. He says that the dressings are tolerable. OBJECTIVE: VITAL SIGNS: He is afebrile. Pulse is 60, blood pressure 147/79. GENERAL: He is a well-developed, well-nourished, pleasant male. He is in no acute distress. He has no complaints. Physical examination is otherwise unchanged. EXTREMITIES: Reveal Gideon bandage and dressing intact. Amputation site is not visible currently. LABORATORY DATA: He has had no labs performed subsequent to his surgery. His cultures show that he had Staphylococcus aureus that is sensitive to all drugs except for amoxicillin and piperacillin. ASSESSMENT AND PLAN: He is doing well following amputation of his toe. It was infected with a sensitive Staphylococcus. He is stable for discharge home at any time. Unfortunately, he is of limited function, does not really speak Tajik. Wound care will be important for him when he is discharged, whether it was performed here at the hospital or by nursing service somewhere. As Dr. Gardner had stated, it will be fine to discharge him home on Keflex. I would like to see him back in a couple of weeks to make sure he is healing appropriately following his surgery. He may be discharged at any time per the [employer]. Job ID: [id number]
[2018-12-09] MEDS ORDERED: HumaLOG 300 UNITS/3 ML VIAL SC PRN (20:49)
[2018-12-10] MEDS: Sodium Chloride 0.9% 1,000 ML IV SCH ×2 (02:12→11:32)
[2018-12-10] MEDS: Vancomycin HCl 1 GM in Premix Bag 1 BAG IVPB SCH ×2 (03:37→15:03)
[2018-12-10] MEDS: Piperacillin/Tazobactam 3.375 GM in Sodium Chloride 0.9% 100 ML IVPB SCH ×4 (04:53→22:14)
[2018-12-10] MEDS: HumaLOG 300 UNITS/3 ML VIAL SC PRN ×3 (06:16→17:01)
[2018-12-10] MEDS: Famotidine 20 MG TAB PO SCH ×2 (09:39→20:30)
[2018-12-10] MEDS: Heparin 5,000 UNITS/ML VIAL SC SCH ×3 (09:39→20:30)
[2018-12-10] MEDS: Lisinopril 5 MG TAB PO SCH (09:39)
[2018-12-10] MEDS: Atenolol 25 MG TAB PO SCH (09:40)
--- NOTE | 2018-12-10 12:06 | PDOC.HOSPP ---
- Subjective Subjective: Patient seen and examined. No new complaints. No overnight events - Objective Vital Signs & Weight: Vital Signs (12 hours) Temp Pulse Resp BP BP Pulse Ox 12/10/18 11:22 98 F 60 16 163/96 H 95 12/10/18 07:29 98 F 71 18 153/91 H 98 12/10/18 04:00 98.0 F 69 18 149/74 H 97 12/10/18 00:20 98.3 F 59 L 16 142/92 H 98 Weight Admit Weight 175 lb Weight 175 lb I&O: 12/09/18 12/10/18 12/11/18 06:59 06:59 06:59 Intake Total 950 Balance 950 Result Diagrams: 12/07/18 04:55 12/07/18 04:55 Additional Labs: Accuchecks 12/10/18 12/10/18 12/09/18 11:26 05:53 20:27 POC Glucose 198 H 161 H 195 H 12/09/18 15:45 POC Glucose 149 H ROS - Review of Systems All systems: All other ROS were reviewed and found negative. Constitutional: denies: fever, chills, sweats, weakness, malaise, other Eyes: denies: pain, vision change, conjunctivae inflammation, eyelid inflammation, redness, other ENT: denies: ear pain, ear discharge, nose pain, nose discharge, nose congestion , mouth pain, mouth swelling, throat pain, throat swelling, other Respiratory: denies: cough, dry, shortness of breath, hemoptysis, SOB with excertion, pleuritic pain, sputum, wheezing, other Cardiovascular: denies: chest pain, palpitations, orthopnea, paroxysmal noc. dyspnea, edema, light headedness, other Gastrointestinal: denies: nausea, vomitting, abdominal pain, diarrhea, constipation, melena, hematochezia, other Genitourinary: denies: dysuria, frequency, incontinence, hematuria, retention, other Musculoskeletal: denies: neck pain, shoulder pain, arm pain, back pain, hand pain, leg pain, foot pain, other Skin: denies: rash, lesions, pia, bruising, other - Medication Medications: Active Medications Generic Name Dose Route Start Last Admin Trade Name Freq PRN Reason Stop Dose Admin Acetaminophen 650 mg 12/06/18 17:11 12/09/18 10:08 Tylenol PO 650 mg Q4H PRN Administration Headache/Fever/Mild Pain (1-3) Hydrocodone Bitart/Acetaminophen 1 tab 12/06/18 17:11 12/08/18 16:46 [place] 5/325 PO 1 tab Q4H PRN Administration Moderate Pain (4-6) Atenolol 25 mg 12/08/18 09:00 12/10/18 09:40 Tenormin PO 25 mg DAILY MONICA Administration Famotidine 20 mg 12/06/18 21:00 12/10/18 09:39 Pepcid PO 20 mg BID MONICA Administration Heparin Sodium (Porcine) 5,000 units 12/06/18 21:00 12/10/18 09:39 Heparin SC 5,000 units TID MONICA Administration Sodium Chloride 1,000 mls @ 100 mls/hr 12/06/18 17:15 12/10/18 11:32 Normal Saline 0.9% IV Not Given .Q10H MONICA Piperacillin Sod/Tazobactam 100 mls @ 200 mls/hr 12/07/18 16:00 12/10/18 09: 40 Sod 3.375 gm/ Sodium Chloride IVPB 100 mls 0400,1000,1600,2200 MONICA Administration Vancomycin HCl 1 gm/ Device 200 mls @ 200 mls/hr 12/09/18 03:00 12/10/18 03: 37 IVPB 200 mls 0300,1500 MONICA Administration Insulin Human Lispro 0 units 12/06/18 17:16 12/10/18 11:36 Humalog SC 2 unit .MILD SLIDING SCALE PRN Administration Mild Correctional Scale Lisinopril 5 mg 12/08/18 09:00 12/10/18 09:39 Zestril PO 5 mg DAILY MONICA Administration Morphine Sulfate 4 mg 12/07/18 09:09 12/07/18 09:41 Morphine SLOW IVP 4 mg Q4H PRN Administration Pain Sodium Chloride 10 ml 12/06/18 17:11 12/09/18 20:48 Flush - Normal Saline IVF 10 ml PRN PRN Administration Saline Flush - Exam NAD, awake alert Eye: PERRL, anicteric sclera ENT: normocephalic atraumatic, no oropharyngeal lesions Neck: supple, symmetric, no JVD Heart: RRR, no murmur, no gallops, no rubs Respiratory: CTAB, no wheezes, no rales, no ronchi Gastrointestinal: soft, non-tender, non-distended, normal bowel sounds Extremities: no cyanosis, no clubbing, no edema Skin: normal turgor, no lesions, no rashes Neurological: CN's grossly intact, normal sensation to touch, no focal deficits Musculoskeletal: normal tone, normal strength, no muscle wasting Psychiatric: normal affect, normal behavior Hosp A/P (1) Osteomyelitis of fifth toe of right foot Code(s): M86.9 - OSTEOMYELITIS, UNSPECIFIED Status: Acute (2) DM2 (diabetes mellitus, type 2) Status: Chronic (3) Diabetic neuropathy Code(s): E11.40 - TYPE 2 DIABETES MELLITUS WITH DIABETIC NEUROPATHY, UNSP Status: Chronic (4) HTN (hypertension) Code(s): I10 - ESSENTIAL (PRIMARY) HYPERTENSION Status: Chronic (5) Obesity (BMI 30.0-34.9) Code(s): E66.9 - OBESITY, UNSPECIFIED Status: Chronic - Plan old records reviewed/req, 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
[2018-12-10] MEDS ORDERED: Lisinopril 10 MG TAB PO SCH (19:45)
[2018-12-11] MEDS: Sodium Chloride 0.9% 1,000 ML IV SCH ×3 (01:53→16:11)
[2018-12-11] MEDS: Vancomycin HCl 1 GM in Premix Bag 1 BAG IVPB SCH ×2 (02:17→16:12)
[2018-12-11] MEDS: Piperacillin/Tazobactam 3.375 GM in Sodium Chloride 0.9% 100 ML IVPB SCH ×3 (04:44→16:09)
[2018-12-11] MEDS: HumaLOG 300 UNITS/3 ML VIAL SC PRN ×2 (06:16→13:03)
[2018-12-11] MEDS: Lisinopril 5 MG TAB PO SCH (08:12)
[2018-12-11] MEDS: Atenolol 25 MG TAB PO SCH (08:12)
[2018-12-11] MEDS: Famotidine 20 MG TAB PO SCH (08:12)
[2018-12-11] MEDS: Heparin 5,000 UNITS/ML VIAL SC SCH ×2 (08:13→15:57)
--- NOTE | 2018-12-11 14:00 | DIS ---
DATE OF ADMISSION: 12/06/2018 DATE OF DISCHARGE: 12/11/2018 PRIMARY CARE PHYSICIAN: [facility] Call admission. DISCHARGE DISPOSITION: Home. PRIMARY DISCHARGE DIAGNOSIS: Osteomyelitis of 5th toe of the right foot, status post toe amputation. SECONDARY DISCHARGE DIAGNOSES: Diabetic neuropathy, hypertension, diabetes type 2, and obesity with BMI of 30. PRIMARY PROCEDURE/OPERATION: Amputation of right 5th toe by Dr. Harrell. RADIOLOGICAL INVESTIGATION: Foot x-ray and ultrasound, lower extremity. SIGNIFICANT LABORATORY DATA: WBC 7.0, hemoglobin 12.3, and platelets 189. Sodium 137, creatinine 1.18, calcium 9.3. LFT normal. Culture from toe grew Staph aureus and Enterococcus faecalis. Blood culture negative. DISCHARGE MEDICATIONS: 1. Doxycycline 100 mg p.o. b.i.d. for 10 days. 2. Metformin 1000 mg p.o. b.i.d. 3. Tramadol 50 mg q.6 hourly p.r.n. 4. Lisinopril 5 mg daily. 5. Glyburide 5 mg p.o. daily. 6. Atenolol 25 mg daily. 7. Aspirin 81 mg p.o. daily. CONTRAINDICATION: None. CODE STATUS: Full code. INPATIENT HOME DEPOT REP: Dr. Harrell was consulted while in hospital, who did amputation of toe. TEST RESULTS PENDING ON DISCHARGE: None. ALLERGIES: PENICILLIN, MORPHINE. DISCHARGE PLAN: Posthospital, the patient will follow up with primary care physician in 1 week. The patient will follow up with Dr. Harrell as instructed. HOSPITAL COURSE: A 63-year-old male with above-mentioned medical problem, who was admitted by Asya Griffith. Please see her H and P for further details. The patient was having osteomyelitis of right 5th toe, that is why the patient was admitted in the hospital. He was treated with broad-spectrum antibiotic therapy with vancomycin and Zosyn. On discharge, we changed to doxycycline based on culture and sensitivity result. The patient underwent toe amputation by Dr. Harrell. The patient's wound was improving and healing. Wound Care Team was following while in the hospital. PHYSICAL EXAMINATION: I have seen and examined the patient at bedside today. VITAL SIGNS: Currently temperature 97.8, pulse 62, respiratory rate 16, saturation 98% on room air, blood pressure 155/71, weight 175 pounds. GENERAL: The patient is currently alert, awake, no acute distress. HEENT: Head; normocephalic, atraumatic. Eyes; pupils round, reactive to light. Extraocular muscle intact. ENT; oropharynx within normal limits. LUNGS: Clear to auscultation without any rhonchi or rales. CARDIAC: S1 and S2, regular without any murmur. ABDOMEN: Soft and benign. EXTREMITIES: No edema. NEUROLOGIC: Nonfocal examination. The patient is medically stable for discharge. All new medication prescription sent to his pharmacy. Job ID: [id number]
[2018-12-11 15:01] LABS: Vancomycin, Trough 20.6 ug/mL
[2018-12-11] MEDS ORDERED: Vancomycin HCl 750 MG in Sodium Chloride 0.9% 250 ML 250 ML IVPB SCH (15:15)
[2018-12-11 15:56] VITALS: BP 182/82; TEMP 98
[2018-12-12] MEDS ORDERED: Vancomycin HCl 750 MG in Sodium Chloride 0.9% 250 ML 250 ML IVPB SCH (03:00)
== END 2018-12-11 17:50 | disposition home health service (06) | DRG 617 ==
LOC: ERS 12:00 → OBSVTOIN 18:12 → SURG A 18:12
PROVIDERS: ADMIT Internal Medicine; ATTEND Internal Medicine
PROC: 0Y6X0Z3 Detachment at Right 5th Toe, Low, Open Approach (ICD-10-PCS; principal; 2018-12-08)
DX: E11.69 Type 2 diabetes mellitus with other specified complication (principal); M86.171 Other acute osteomyelitis, right ankle and foot; E78.00 Pure hypercholesterolemia, unspecified; I10 Essential (primary) hypertension; B96.89 Other specified bacterial agents as the cause of diseases classified elsewhere; E11.40 Type 2 diabetes mellitus with diabetic neuropathy, unspecified; E78.5 Hyperlipidemia, unspecified; E66.9 Obesity, unspecified; B95.61 Methicillin susceptible Staphylococcus aureus infection as the cause of diseases classified elsewhere; B95.2 Enterococcus as the cause of diseases classified elsewhere; Z68.30 Body mass index [BMI] 30.0-30.9, adult; Z89.022 Acquired absence of left finger(s); Z89.422 Acquired absence of other left toe(s); Z87.891 Personal history of nicotine dependence; Z88.0 Allergy status to penicillin; Z88.5 Allergy status to narcotic agent; Z79.899 Other long term (current) drug therapy; Z79.82 Long term (current) use of aspirin; Z79.84 Long term (current) use of oral hypoglycemic drugs
CPT/HCPCS: 36415; 36416; 80053; 80202; 83605; 85025; 85652; 86140; 87040; 87070; 87076; 87077; 87186; 87205; 88305; 88311; 96361; 96365; 96375; J1644; J2001; J2185; J2270; J2405; J2543; J2704; J3010; J3370; J3490; J7050

== ENCOUNTER 2019-01-11 09:13 | Outpatient (CLI) | payer MEDICARE, MEDICAID ==
[~2019-01-11 09:13] MED LIST: Sodium Chloride 0.9% 15 ML NEB ONE
--- NOTE | 2019-01-11 11:09 | HP ---
HISTORY OF PRESENT ILLNESS: Mr. Satya Prather is a very pleasant 63-year-old gentleman, who presents to the Wound Center for evaluation of a wound of the right foot subsequent to fifth toe transphalangeal amputation on 12/07/2018. Apparently, the patient has been receiving dressing changes with the assistance of Home Health. At the time of the patient's discharge from [facility], Mr. Semaj Prather was referred to the Wound Center for further evaluation and treatment. PAST MEDICAL HISTORY: 1. Diabetes mellitus. 2. Hypertension. PAST SURGICAL HISTORY: 1. Completion of amputation of left fifth finger subsequent to work injury approximately 16 years ago. 2. Amputation of left great and second toes and metatarsals. 3. Surgery for testicular torsion. 4. Amputation of left third toe through the proximal phalanx on 09/30/2017. 5. Right fifth toe transphalangeal amputation on 12/07/2018. 6. Cataract surgery. MEDICATIONS: 1. Aspirin 81 mg. 2. Lisinopril 5 mg. 3. Metformin 1000 mg. 4. Atenolol 25 mg. ALLERGIES: NO KNOWN DIAGNOSED ALLERGIES. SOCIAL HISTORY: Social history is significant for tobacco use of 1 pack of cigarettes per day for 5 years. The patient stopped smoking over 20 years ago. Social history is also significant for the heavy consumption of alcohol in the past. The patient stopped consuming alcohol also over 20 years ago. FAMILY HISTORY: Family history is negative for diabetes mellitus or coronary artery disease. PHYSICAL EXAMINATION: VITAL SIGNS: Temperature 98.1, pulse 75, respirations 21, and blood pressure 165/79. Accu-Chek 206. GENERAL: A 63-year-old gentleman, lying on table in examination room, in no acute distress. HEENT: Normocephalic and atraumatic. NECK: No nuchal rigidity. CHEST: Clear to auscultation. CV: Regular rate and rhythm. ABDOMEN: Soft. EXTREMITIES: A wound of the right foot subsequent to fifth toe transphalangeal amputation is present. The dimensions of the wound are approximately 1.0 x 0.3 cm. Dry stable eschar covers the wound bed in its entirety. No purulent drainage is associated with the wound. No erythema of the skin surrounding the wound is present. No maceration of the skin of the periwound is noted. A dorsalis pedis pulse or posterior tibial pulse is not palpable on the right. Both pulses are, however, audible by Doppler. No significant edema of the right foot is present on exam today. NEUROLOGIC: Grossly nonfocal. ASSESSMENT AND PLAN: 1. Ulceration of right foot as described above. As stated above, the ulceration is covered in its entirety by dry stable eschar. The ulceration will be dressed with bordered gauze for 3 more dressing changes. If no drainage is noted at the time of dressing changes, dressing changes 3 times per week by home health will be discontinued. The patient understands and is in agreement with the preceding treatment plan. Mr. Semaj Prather will be discharged from clinic today with followup on a p.r.n. basis. 2. Diabetes mellitus. The patient's Accu-Chek in clinic today is 206. The patient has been told that for optimal wound healing, his blood glucoses should remain below 150. 3. Hypertension. Job ID: [id number]
== END 2019-01-11 09:14 | disposition home or self-care (01) ==
LOC: WCC 09:13
PROVIDERS: ATTEND Family Medicine
DX: T81.89XD Other complications of procedures, not elsewhere classified, subsequent encounter (principal); E11.9 Type 2 diabetes mellitus without complications; I10 Essential (primary) hypertension; Z89.421 Acquired absence of other right toe(s)
CPT/HCPCS: 36416; 97602; 99203; A4218; G0463

== ENCOUNTER 2020-06-27 13:51 | Inpatient (IN) | payer MEDICARE, OTHER ==
[2020-06-27] MEDS ORDERED: Acetaminophen 500 MG TAB ONE (14:37)
[2020-06-27] MEDS ORDERED: Cefepime 2 GM VIAL ONE (14:37)
[2020-06-27] MEDS ORDERED: Fentanyl 100 MCG/2 ML VIAL ONE (14:37)
[2020-06-27] MEDS ORDERED: Ondansetron PF 4 MG/2 ML Vial ONE (14:38)
[2020-06-27 14:49] LABS: #Eosinphils 0.1 thou/uL (0.0-0.7); #Lymphocytes 1.5 thou/uL (1.20-3.40); #Neutrophils 8.1 thou/uL (1.40-6.50); %Basophils 0.3 % (0.0-1.0); %Eosinophils 0.8 % (0.0-10.0); %Lymphocytes 14.2 % (21.0-51.0); %Monocytes 9.1 % (0.0-10.0); %Neutrophils 75.6 % (42.0-75.0); Hemoglobin 14.8 g/dL (14.0-18.0); Mean Corpuscular Hemoglobin 31.4 pg (27.0-31.0); Mean Corpuscular Volume 89.6 fL (78.0-98.0); Platelet Count 180 thou/uL (130-400); RBC Distribution Width 11.7 % (11.5-14.5); Red Blood Cell (RBC) Count 4.71 mill/uL (4.70-6.10); White Blood Cell (WBC) Count 10.7 thou/uL (4.8-10.8)
[2020-06-27 14:55] LABS: PTT 27.4 sec (22.9-36.1); Prothrombin Time 13.4 sec (12.0-14.7)
[2020-06-27 15:07] LABS: ALT (SGPT) 21 U/L (8-55); AST (SGOT) 19 U/L (5-34); Albumin 4.3 g/dL (3.4-4.8); Alkaline Phosphatase 84 U/L (40-110); Anion Gap 19 mmol/L (10-20); BUN (Urea Nitrogen) 23 mg/dL (8.4-25.7); CK (CPK) 34 U/L (30-200); Calc. Creatinine Clearance 0 mL/min (70-130); Calcium 9.6 mg/dL (7.8-10.44); Carbon Dioxide 19 mmol/L (23-31); Chloride 101 mmol/L (98-107); Globulin 4.1 g/dL (2.4-3.5); Glucose 271 mg/dL (80-115); Magnesium 1.9 mg/dL (1.6-2.6); Potassium 4.2 mmol/L (3.5-5.1); Protein, Total 8.4 g/dL (5.8-8.1); Sodium 135 mmol/L (136-145)
[2020-06-27] MEDS ORDERED: Vancomycin HCl 1.75 GM in Sodium Chloride 0.9% 500 ML IVPB SCH (15:15)
[2020-06-27] MEDS ORDERED: Dextrose 5% in Water 1,000 ML IV PRN (16:01)
[2020-06-27] MEDS ORDERED: Ondansetron PF 4 MG/2 ML Vial IVP PRN (16:01)
[2020-06-27] MEDS ORDERED: Dextrose 50% Abboject 50 ML SYRINGE SLOW IVP PRN (16:01)
--- NOTE | 2020-06-27 16:18 | PDOC.HHP ---
Hospitalist HPI Left foot pain History of Present Illness: The patient is a 64-year-old male with past medical history of hypertension, and diabetes mellitus status post amputation of the first 3 toes of his left foot and the fifth toe of his right foot. The patient presented to the hospital with complaints of worsening pain in his left foot over the past 2 days. He also has been experiencing fevers and chills. The patient is compliant with his medications. He is not aware of his last A1c level. In the ED, sepsis criteria with were met with fever and tachycardia. ESR and CRP were elevated. Foot x-ray did not reveal any obvious osteomyelitis. The patient did report some purulent drainage from his foot yesterday. Allergies/Adverse Reactions: Allergy/AdvReac Type Severity Reaction Status Date / Time Penicillins Allergy Verified 12/06/18 18:41 morphine AdvReac Intermediate Rash Verified 09/28/17 19:55 Home Medications: Medication Instructions Recorded Confirmed Type glyBURIDE [Glyburide] 5 mg PO DAILY 03/15/15 12/06/18 History metFORMIN [Glucophage] 1,000 mg PO BID-WM #0 tab 03/18/15 12/06/18 Rx Aspirin [Ecotrin Low Strength] 81 mg PO DAILY 03/31/17 12/06/18 History Lisinopril [Zestril] 5 mg PO DAILY 09/28/17 12/06/18 History Atenolol 25 mg PO DAILY 12/06/18 12/06/18 History Doxycycline Hyclate 100 mg PO Q12HR #20 tablet 12/11/18 Rx traMADol HCl [Tramadol HCl] 50 mg PO Q6H PRN #30 tablet 12/11/18 Rx Past History: PMHx: As noted above PSHx: As noted above FHx: Noncontributory to current presentation Social: Denies smoking or illicit drug use. Hospitalist HPI ROS All other systems reviewed; all pertinent +/- noted in HPI/Subj Hospitalist Exam General Appearance: awake alert Eye: PERRL ENT: normocephalic atraumatic Neck: supple Heart: RRR, no murmur, no gallops Respiratory: CTAB, no wheezes, no rales Gastrointestinal: soft Extremities: no cyanosis Neurological: cranial nerve grossly intact, no new deficit Hospitalist Results Result Diagrams: 06/27/20 14:24 06/27/20 14:24 Lab results: Laboratory Last Values WBC 10.7 thou/uL (4.8-10.8) 06/27/20 14:24 RBC 4.71 mill/uL (4.70-6.10) 06/27/20 14:24 Hgb 14.8 g/dL (14.0-18.0) 06/27/20 14:24 Hct 42.3 % (42.0-52.0) 06/27/20 14:24 MCV 89.6 fL (78.0-98.0) 06/27/20 14:24 MCH 31.4 pg (27.0-31.0) H 06/27/20 14:24 MCHC 35.0 g/dL (32.0-36.0) 06/27/20 14:24 RDW 11.7 % (11.5-14.5) 06/27/20 14:24 Plt Count 180 thou/uL (130-400) 06/27/20 14:24 MPV 8.0 fL (7.4-10.4) 06/27/20 14:24 Neutrophils % 75.6 % (42.0-75.0) H 06/27/20 14:24 Lymphocytes % 14.2 % (21.0-51.0) L 06/27/20 14:24 Monocytes % 9.1 % (0.0-10.0) 06/27/20 14:24 Eosinophils % 0.8 % (0.0-10.0) 06/27/20 14:24 Basophils % 0.3 % (0.0-1.0) 06/27/20 14:24 Neutrophils # 8.1 thou/uL (1.40-6.50) H 06/27/20 14:24 Lymphocytes # 1.5 thou/uL (1.20-3.40) 06/27/20 14:24 Monocytes # 1.0 thou/uL (0.11-0.59) H 06/27/20 14:24 Eosinophils # 0.1 thou/uL (0.0-0.7) 06/27/20 14:24 Basophils # 0.0 thou/uL (0.0-0.2) 06/27/20 14:24 ESR Westergren 70 mm/hr (Less than 20) H 06/27/20 14:24 PT 13.4 sec (12.0-14.7) 06/27/20 14:24 INR 1.0 06/27/20 14:24 APTT 27.4 sec (22.9-36.1) 06/27/20 14:24 Sodium 135 mmol/L (136-145) L 06/27/20 14:24 Potassium 4.2 mmol/L (3.5-5.1) 06/27/20 14:24 Chloride 101 mmol/L (98-107) 06/27/20 14:24 Carbon Dioxide 19 mmol/L (23-31) L 06/27/20 14:24 Anion Gap 19 mmol/L (10-20) 06/27/20 14:24 BUN 23 mg/dL (8.4-25.7) 06/27/20 14:24 Creatinine 1.50 mg/dL (0.7-1.3) H 06/27/20 14:24 Estimated GFR (MDRD) 47 06/27/20 14:24 Glucose 271 mg/dL (80-115) H 06/27/20 14:24 Lactic Acid 2.2 mmol/L (0.5-2.2) 06/27/20 14:24 Calcium 9.6 mg/dL (7.8-10.44) 06/27/20 14:24 Magnesium 1.9 mg/dL (1.6-2.6) 06/27/20 14:24 Total Bilirubin 1.0 mg/dL (0.2-1.2) 06/27/20 14:24 AST 19 U/L (5-34) 06/27/20 14:24 ALT 21 U/L (8-55) 06/27/20 14:24 Alkaline Phosphatase 84 U/L (40-110) 06/27/20 14:24 Creatine Kinase 34 U/L (30-200) 06/27/20 14:24 Troponin I Less than 0.010 ng/mL (< 0.028) 06/27/20 14:24 C-Reactive Protein 10.09 mg/dL (= or < 0.5) H 06/27/20 14:24 Serum Total Protein 8.4 g/dL (5.8-8.1) H 06/27/20 14:24 Albumin 4.3 g/dL (3.4-4.8) 06/27/20 14:24 Globulin 4.1 g/dL (2.4-3.5) H 06/27/20 14:24 Albumin/Globulin Ratio 1.0 g/dL (1.2-2.2) L 06/27/20 14:24 Blood Type A POSITIVE 06/27/20 14:56 Antibody Screen NEGATIVE 06/27/20 14:24 Hospitalist H&P A/P (1) Sepsis Code(s): A41.9 - SEPSIS, UNSPECIFIED ORGANISM Status: Acute (2) Cellulitis and abscess of foot Code(s): L03.119 - CELLULITIS OF UNSPECIFIED PART OF LIMB; L02.619 - CUTANEOUS ABSCESS OF UNSPECIFIED FOOT Status: Acute (3) DM2 (diabetes mellitus, type 2) Status: Chronic (4) Diabetic neuropathy Code(s): E11.40 - TYPE 2 DIABETES MELLITUS WITH DIABETIC NEUROPATHY, UNSP Status: Chronic (5) HTN (hypertension) Code(s): I10 - ESSENTIAL (PRIMARY) HYPERTENSION Status: Chronic Plan: Diabetic foot infection with possible abscess. The patient is septic on presentation. Start IV clindamycin 900 mg every 8 hours. Check 2 sets of blood cultures. Discussed the case with Dr. Harrell who agreed to consult. Check arterial Doppler studies. The patient will be kept n.p.o. after midnight. Moderate sliding scale has been initiated along with diabetic diet in the meantime. Check hemoglobin A1c.
--- NOTE | 2020-06-27 17:22 | RAD ---
LEFT FOOT RADIGRAPHS THREE VIEWS: 06/27/20 PROVIDED CLINICAL HISTORY: Left foot wound with fever. FINDINGS: Comparison 09/27/17. Postoperative changes involving the first, second, and third rays demonstrated. Soft tissue prominenc e overlying the remaining third metatarsal head with possible focus of soft tissue gas. There is an osseous density resembling a terminal tuft overlying the dorsal aspects of the third metatarsal. Ther e is no definite osteolytic process evident. Alignment appears anatomic. Joint spaces appear preserve d. Vascular calcifications are noted. IMPRESSION: Soft tissue swelling with soft tissue gas demonstrated involving the medial aspects of the distal rem aining forefoot. POS: JORGE LUIS
--- NOTE | 2020-06-27 17:22 | RAD ---
PORTABLE CHEST: 06/27/20 INDICATIONS: Fever. COMPARISON: 08/24/17. The lung mcbride appear clear. No evidence of infiltrate identified. Heart and mediastinum unremarkabl e. The vascular markings are normal. IMPRESSION: No acute process identified. POS: AGW
[2020-06-27] MEDS ORDERED: Clindamycin/D5W 900 mg/50 ml Premix Bag ONE (17:47)
--- NOTE | 2020-06-27 17:53 | ULT ---
Arterial duplex sonogram bilateral lower extremity HISTORY: Leg pain. Claudication. Vascular disease. FINDINGS: Good color and spectral Doppler flow within each lower extremity. Right: Triphasic waveform within the common femoral and deep femoral artery and the proximal femoral artery. Biphasic waveform within the distal portion of the femoral artery, popliteal artery. Monophasic flow within the anterior tibial, posterior tibial, and dorsalis pedis arteries. No abnorma lly elevated peak systolic velocities. Left: Triphasic waveform within the common femoral artery and femoral artery. Biphasic waveform withi n the deep femoral artery. Monophasic wave flow within the popliteal, posterior tibial, anterior tibial, and dorsalis pedis arteries. No abnormally elevated peak systolic velocities. IMPRESSION : Good arterial flow to each lower extremity. No focal stenoses are evident, however there is dampened pulsatility at the level of the left popliteal artery and beyond. Perhaps conventional or CT arteriography could give better anatomic evaluation.
[2020-06-27] MEDS: Clindamycin/D5W 900 MG in Premix Bag 1 BAG IVPB SCH (17:58)
[2020-06-27] MEDS: Sodium Chloride 0.9% 1,000 ML IV SCH (17:58)
[2020-06-27] MEDS ORDERED: HumaLOG 300 UNITS/3 ML VIAL ONE (19:11)
[2020-06-27] MEDS: HumaLOG 300 UNITS/3 ML VIAL SC PRN (19:13)
--- NOTE | 2020-06-27 20:45 | CON ---
DATE OF CONSULTATION: 06/27/2020 CHIEF COMPLAINT: Left foot pain/infection. HISTORY OF PRESENT ILLNESS: The patient is a 64-year-old diabetic male, who is known to myself from prior surgery in 2019. He has had three toes amputated off his left foot previously by Dr. Dent. These were in 2015 and 2018. In 2019, I saw him for a right fifth toe infection and performed a right fifth toe amputation. He presented to the emergency room today secondary to pain in the plantar aspect of his left foot. He notes a longstanding callus on the bottom of his left foot. He notes pus draining from this callus recently. The patient was noted to be febrile upon presentation. He has been seen by the emergency room physician as well as the hospitalist. Admission orders have already been entered; however, it is unlikely he will get a room within the hospital as that is full and he has been managed here in the emergency room. PAST MEDICAL HISTORY: Significant for hypertension and diabetes mellitus. He tells me his primary care physician is in [place], but he does not know the name of his physician. PAST SURGICAL HISTORY: Four prior toe amputations as outlined above. MEDICATIONS: Include; 1. Glyburide. 2. Metformin. 3. Aspirin. 4. Lisinopril. 5. Atenolol. ALLERGIES: PENICILLIN AND MORPHINE. PERSONAL SOCIAL HISTORY: He is a former smoker. He denies alcohol use. He lives with friends. In spite of lived in [facility] for four years, he still speaks essentially no French. REVIEW OF SYSTEMS: Otherwise unremarkable. FAMILY HISTORY: Noncontributory. PHYSICAL EXAMINATION: VITAL SIGNS: He has been febrile here in the emergency room. He is also hypertensive. HEAD, EYES, EARS, NOSE, THROAT: Unremarkable. NECK: Supple. LUNGS: Clear to auscultation. CARDIAC: Regular rate and rhythm. ABDOMEN: Benign. EXTREMITIES: He has palpable femoral pulses. He has a deformed left foot secondary to prior toe amputations. On the plantar aspect, he has a callus that is about a centimeter in diameter underlying the fourth metatarsal. This is tender to palpation. With pressure on the this, we expressed purulent material. I gently dilated this to allow more purulent material to be expressed. Cultures were obtained of the purulent material and submitted. There is a foul smell with a typical of an anaerobic organism. LABORATORY DATA: CBC shows white blood cell count of 10.7 with a hemoglobin of 14.8. His ESR is elevated at 70. Coagulation panel is normal. Chemistry profile shows elevated glucose of 271. Hemoglobin A1c has been ordered, but has not resulted yet. ASSESSMENT AND PLAN: The patient with an abscess in the plantar aspect of his left foot underlying a callus. Tomorrow, at bedside, I will incise and drain this infection under local anesthetic. I will remove the callus and unroof the infection. He will need to abstain from ambulation until this heals. All this was explained to him in Hungarian. The patient has been already started on IV antibiotics and with the infection decompressed, he will certainly be stable until the formal incision and drainage can be performed. Job ID: [id number]
[2020-06-27 20:46] LABS: SARS-CoV-2 NAA Rapid Test DETECTED (NotDetected)
[2020-06-27] MEDS ORDERED: Acetaminophen 325 MG TAB ONE (22:05)
[2020-06-27] MEDS: Acetaminophen 325 MG TAB PO PRN (22:10)
[2020-06-28] MEDS: Clindamycin/D5W 900 MG in Premix Bag 1 BAG IVPB SCH ×2 (01:36→08:11)
[2020-06-28] MEDS: Sodium Chloride 0.9% 1,000 ML IV SCH ×3 (03:06→22:05)
[2020-06-28 05:21] VITALS: BMI 26.7
[2020-06-28 05:47] LABS: #Eosinphils 0.1 thou/uL (0.0-0.7); #Lymphocytes 2.1 thou/uL (1.20-3.40); #Neutrophils 6.8 thou/uL (1.40-6.50); %Basophils 0.3 % (0.0-1.0); %Eosinophils 1.3 % (0.0-10.0); %Lymphocytes 20.5 % (21.0-51.0); %Monocytes 10.1 % (0.0-10.0); %Neutrophils 67.7 % (42.0-75.0); Hemoglobin 12.7 g/dL (14.0-18.0); Mean Corpuscular HGB CONC 33.4 g/dL (32.0-36.0); Mean Corpuscular Hemoglobin 30.3 pg (27.0-31.0); Mean Corpuscular Volume 90.7 fL (78.0-98.0); Mean Platelet Volume 7.7 fL (7.4-10.4); Platelet Count 172 thou/uL (130-400); RBC Distribution Width 11.7 % (11.5-14.5); Red Blood Cell (RBC) Count 4.19 mill/uL (4.70-6.10)
[2020-06-28 06:05] LABS: Anion Gap 11 mmol/L (10-20); BUN (Urea Nitrogen) 17 mg/dL (8.4-25.7); Calc. Creatinine Clearance 58 mL/min (70-130); Calcium 8.6 mg/dL (7.8-10.44); Carbon Dioxide 23 mmol/L (23-31); Chloride 109 mmol/L (98-107); Glucose 222 mg/dL (80-115); Potassium 4.3 mmol/L (3.5-5.1); Sodium 139 mmol/L (136-145)
[2020-06-28] MEDS: HumaLOG 300 UNITS/3 ML VIAL SC PRN ×3 (06:19→22:06)
[2020-06-28] MEDS ORDERED: Lidocaine 1% w/Epinephrine 1:100K 20 ML VIAL NERVE BLCK SCH (07:15)
[2020-06-28] MEDS ORDERED: Lisinopril 5 MG TAB PO SCH (09:00)
[2020-06-28] MEDS ORDERED: Atenolol 25 MG TAB PO SCH (09:00)
[2020-06-28] MEDS: Enoxaparin Sodium 40 MG/0.4 ML SYRINGE SC SCH (12:06)
[2020-06-28] MEDS: Aspirin 81 mg Enteric Coated Tablet PO SCH (12:06)
--- NOTE | 2020-06-28 14:04 | PQF ---
CLINICAL DOCUMENTATION CLARIFICATION FORM: Dear Dr. WOODS Date: 06-28-20 Please exercise your independent, professional judgment in responding to the clarification form. Clinical indicators are provided on the bottom of this form for your review. Please check appropriate box(es): [x ] Acute Renal Failure (ARF) / Acute Kidney Injury (JESI) [ ] Insignificant Lab Values [ ] Other diagnosis [ ] Unable to determine In addition, please specify: Present on Admission (POA): [ x ] Yes [ ] No [ ] Unable to determine For continuity of documentation, please document condition throughout progress notes and discharge summary. Thank You. To be completed by CDI/Coding staff for physician review: CLINICAL INDICATORS - SIGNS / SYMPTOMS / LABS / RESULTS AND LOCATION IN MR: GFR: 06-27-20: 47 06-28-20: 56 CREATININE: 06-27-20: 1.50 06-28-20: 1.30 BUN: 06-27-20: 23 RISK FACTORS / RESULTS AND LOCATION IN MR: H&P: HX HTN, DM S/P TOES AMPUTATIONS, FEVER AND CHILLS, SEPSIS AND WITH FEVER AND TACHYCARDIA ER NOTES 06-27-20: MEDS: ATENOLOL, ASA, LISINOPRIL, ATORVASTATIN, JARDIANCE TREATMENTS / RESULTS AND LOCATION IN MR: ER NOTES: 06-27-20: NS IVF MONITORING LABS 06-27-20 AND 06-28-20 National Kidney [employer] Guidelines for CKD Staging Stage I Kidney damage with normal or increased GFR GFR > 90 Stage II Kidney damage with mildly decreased GFR GFR 60-89 Stage III Kidney damage with moderately decreased GFR GFR 30-59 Stage IV Kidney damage with severely decreased GFR GFR 16-29 Stage V Kidney failure GFR<15 ESRD End Stage Renal Disease On dialysis Acute Renal Failure/Acute Kidney Failure defined as: Increases in SCr by (>) 0.3 mg/dl within 48 hours OR- Increases in SCr by (>) 1.5 times baseline, known or presumed to have occurred within the prior 7 days OR- Urine volume < 0.5 ml/kg/hour for 6 hours (KDIGO supplement 2012 for RIFLE/MANUEL criteria) CDS Signature: Radha Ruano Phone #: [phone] Date: 06-28-20 This is a permanent part of the Medical Record [facility]
--- NOTE | 2020-06-28 16:07 | PDOC.HOSPP ---
- Subjective Encounter Date: 06/28/20 Encounter Time: 16:05 Subjective: Mr. Cha is a 64-year-old patient who is a diabetic complicated by diabetic peripheral neuropathy and likely peripheral vascular disease who has had multiple amputations of the toes of his left foot presented to the hospital due to yellowish drainage from the plantar aspect of his foot. He was seen earlier on admission by general surgery with plans to do a bedside I&D. He was septic on admissions and he is appropriately on IV antibiotics. We will follow up any operative cultures. - Objective Vital Signs & Weight: Vital Signs (12 hours) Temp Pulse Resp BP BP Pulse Ox 06/28/20 15:20 99.4 F 77 16 150/89 H 94 L 06/28/20 12:06 76 06/28/20 11:15 98.8 F 76 16 159/75 H 94 L 06/28/20 08:45 94 L 06/28/20 08:11 85 157/75 H 06/28/20 07:35 98.8 F 85 14 157/75 H 94 L 06/28/20 04:30 98.5 F 91 18 182/98 H 96 Weight Weight 156 lb 8.451 oz I&O: 06/27/20 06/28/20 06/29/20 06:59 06:59 06:59 Output Total 700 Balance -700 Result Diagrams: 06/28/20 05:27 06/28/20 05:27 Additional Labs: Accuchecks 06/28/20 06/28/20 06/28/20 15:13 11:11 06:15 POC Glucose 108 H 167 H 174 H 06/27/20 18:54 POC Glucose 253 H Radiology Reviewed by me: Yes EKG Reviewed by me: Yes Hospitalist ROS - Review of Systems Neurological: reports: weakness - Medication Medications: Active Medications Generic Name Dose Route Start Last Admin Trade Name Freq PRN Reason Stop Dose Admin Acetaminophen 650 mg 06/27/20 16:01 06/27/20 22:10 Acetaminophen 325 Mg Tab PO 650 mg Q4H PRN Administration Headache/Fever/Mild Pain (1-3) Aspirin 81 mg 06/28/20 09:00 06/28/20 12:06 Aspirin 81 Mg Enteric Coated Tablet PO Not Given DAILY MONICA Atenolol 25 mg 06/28/20 09:00 06/28/20 08:11 Atenolol 25 Mg Tab PO 25 mg DAILY MONICA Administration Enoxaparin Sodium 40 mg 06/28/20 09:00 06/28/20 12:06 Enoxaparin Sodium 40 Mg/0.4 Ml Syringe SC Not Given 0900 [facility] Sodium Chloride 1,000 mls @ 100 mls/hr 06/27/20 16:15 06/28/20 03:06 Normal Saline 0.9% IV Not Given .Q10H [facility] Clindamycin Phosphate/Dextrose 50 mls @ 100 mls/hr 06/27/20 17:00 06/28/20 08:11 900 mg/ Device IVPB 50 mls 0100,0900,1700 [facility] Administration Insulin Human Lispro 0 units 06/27/20 16:01 06/28/20 12:09 Humalog 300 Units/3 Ml Vial SC 2 unit .MODERATE SLIDING SC PRN Administration Moderate Correctional Scale Lisinopril 5 mg 06/28/20 09:00 06/28/20 12:06 Lisinopril 5 Mg Tab PO Not Given DAILY [facility] Sodium Chloride 10 ml 06/28/20 09:00 06/28/20 12:06 Flush - Normal Saline 10 Ml Syringe IVF Not Given Q12HR [facility] Hospitalist Exam Vitals: Vital Signs (12 hours) Temp Pulse Resp BP BP Pulse Ox 06/28/20 15:20 99.4 F 77 16 150/89 H 94 L 06/28/20 12:06 76 06/28/20 11:15 98.8 F 76 16 159/75 H 94 L 06/28/20 08:45 94 L 06/28/20 08:11 85 157/75 H 06/28/20 07:35 98.8 F 85 14 157/75 H 94 L 06/28/20 04:30 98.5 F 91 18 182/98 H 96 Weight Weight 156 lb 8.451 oz General Appearance: NAD Eye: PERRL ENT: normocephalic atraumatic, no oropharyngeal lesions Neck: supple, symmetric, no JVD, no carotid bruit Heart: RRR, no murmur, no gallops, no rubs, normal peripheral pulses Respiratory: CTAB, no wheezes, no rales, no ronchi Gastrointestinal: soft, non-tender, non-distended, normal bowel sounds Neurological: cranial nerve grossly intact, normal sensation to touch Musculoskeletal: normal tone, normal strength, no muscle wasting Psychiatric: normal affect, normal behavior, A&O x 3 Hosp A/P (1) Cellulitis and abscess of foot Code(s): L03.119 - CELLULITIS OF UNSPECIFIED PART OF LIMB; L02.619 - CUTANEOUS ABSCESS OF UNSPECIFIED FOOT Status: Acute (2) DM2 (diabetes mellitus, type 2) Status: Chronic (3) Diabetic neuropathy Code(s): E11.40 - TYPE 2 DIABETES MELLITUS WITH DIABETIC NEUROPATHY, UNSP Status: Chronic (4) HTN (hypertension) Code(s): I10 - ESSENTIAL (PRIMARY) HYPERTENSION Status: Chronic - Plan old records reviewed/req, continue antibiotics #1. Diabetic foot ulcers. The patient is to undergo bedside incision and drainage by general surgery. 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 #2. Abscess of the left plantar foot. Plan for bedside I&D by general surgery. 3. Uncontrolled diabetes. The patient desperately needs diabetic teaching. #4. Acute kidney injury. Avoid nephrotoxins as much as possible. #5. Sepsis secondary skin/soft tissue infection. Gram stain from cultures collected on admission is showing gram-positive cocci in clusters and also gram-negative rods. I am going to broaden his antibiotics. I am going to change his antibiotics to vancomycin and cefepime. This can be deescalated once the culture data reports. He is at risk of MRSA infection.
--- NOTE | 2020-06-28 17:53 | OP ---
DATE OF PROCEDURE: 06/28/2020 PREOPERATIVE DIAGNOSIS: Left forefoot plantar abscess, underlying callus. POSTOPERATIVE DIAGNOSIS: Left forefoot plantar abscess, underlying callus. PROCEDURE PERFORMED: Full-thickness excision of left foot plantar callus with debridement of skin and subcutaneous tissue. ANESTHESIA: 1% lidocaine with epinephrine. INDICATIONS: The patient is a 64-year-old diabetic male. He presented to the hospital yesterday complaining of severe left foot pain with fever and chills. I expressed purulent material from the center of his callus yesterday. Today using local anesthetic, I have recommended debridement to expose the underlying abscess and unroof the overlying skin. DESCRIPTION OF PROCEDURE: Informed consent was obtained. The foot was cleansed with alcohol while in bed on the surgical floor. Local anesthetic was infiltrated using 1% lidocaine with epinephrine. I excised the callus in a full-thickness fashion, revealing an underlying abscess cavity. The cavity was irrigated and cleansed. debrided. There was direct communication with the bone of the distal third metatarsal. It did not appear that the fourth metatarsal was involved. The bone appears to be strong and intact without evidence of infection. The cavity was about 1.5 cm in diameter. I debrided some of the thickness of the thick plantar skin. The defect when completed was about a 1 cm in diameter. There was no bleeding the wound. I packed it with dry gauze. We will consult Wound Care Team to initiate wound VAC dressing changes. Since the bone is relatively deep to the overlying skin, I am hopeful that the granulation process might occur that would obviate the need for surgery on the underlying bone. If, however, surgery is necessary, this would involve removal of much of the third metatarsal. Continue IV antibiotics and wound care over the weekend. I will evaluate him on Wednesday, July 01. Job ID: [id number]
[2020-06-28] MEDS: Cefepime 1 GM in Sodium Chloride 0.9% 100 ML IVPB SCH (18:26)
[2020-06-28] MEDS ORDERED: Vancomycin HCl 1 GM in Sodium Chloride 0.9% 250 ML 300 ML IVPB SCH (21:00)
[2020-06-28] MEDS ORDERED: FLU VACC QS2020-21(6MOS UP)/PF 60 MCG/0.5 ML SYRINGE IM ONE (21:00)
[2020-06-28] MEDS: Vancomycin 1 GM in Premix Bag 1 BAG IVPB SCH (22:03)
[2020-06-28] MEDS: Acetaminophen 325 MG TAB PO PRN (22:03)
[2020-06-29] MEDS: Cefepime 1 GM in Sodium Chloride 0.9% 100 ML IVPB SCH ×2 (05:58→18:37)
[2020-06-29] MEDS: HumaLOG 300 UNITS/3 ML VIAL SC PRN ×2 (05:58→12:52)
[2020-06-29 06:17] LABS: #Eosinphils 0.1 thou/uL (0.0-0.7); #Lymphocytes 1.6 thou/uL (1.20-3.40); #Monocytes 0.8 thou/uL (0.11-0.59); #Neutrophils 4.6 thou/uL (1.40-6.50); %Basophils 0.6 % (0.0-1.0); %Lymphocytes 22.6 % (21.0-51.0); %Neutrophils 63.7 % (42.0-75.0); Hemoglobin 12.5 g/dL (14.0-18.0); Mean Corpuscular HGB CONC 35.3 g/dL (32.0-36.0); Mean Corpuscular Hemoglobin 32.5 pg (27.0-31.0); Mean Corpuscular Volume 92.1 fL (78.0-98.0); Mean Platelet Volume 7.9 fL (7.4-10.4); Platelet Count 179 thou/uL (130-400); RBC Distribution Width 11.6 % (11.5-14.5); Red Blood Cell (RBC) Count 3.84 mill/uL (4.70-6.10); White Blood Cell (WBC) Count 7.2 thou/uL (4.8-10.8)
[2020-06-29 06:43] LABS: Anion Gap 12 mmol/L (10-20); BUN (Urea Nitrogen) 14 mg/dL (8.4-25.7); Calc. Creatinine Clearance 74 mL/min (70-130); Calcium 8.8 mg/dL (7.8-10.44); Carbon Dioxide 24 mmol/L (23-31); Chloride 108 mmol/L (98-107); Glucose 205 mg/dL (80-115); Sodium 140 mmol/L (136-145)
[2020-06-29] MEDS: Sodium Chloride 0.9% 1,000 ML IV SCH ×2 (09:33→18:37)
[2020-06-29] MEDS: Lisinopril 20 MG TAB PO SCH ×2 (09:33→20:25)
[2020-06-29] MEDS: Enoxaparin Sodium 40 MG/0.4 ML SYRINGE SC SCH (09:33)
[2020-06-29] MEDS: Aspirin 81 mg Enteric Coated Tablet PO SCH (09:33)
[2020-06-29] MEDS: Atenolol 25 MG TAB PO SCH (09:33)
[2020-06-29] MEDS: traMADol HCl 50 MG TAB PO PRN ×2 (10:17→20:24)
[2020-06-29] MEDS: Vancomycin 1 GM in Premix Bag 1 BAG IVPB SCH ×2 (10:18→21:06)
--- NOTE | 2020-06-29 13:06 | PDOC.HOSPP ---
- Subjective Encounter Date: 06/29/20 Encounter Time: 10:10 Subjective: Patient seen this morning. He appears well. Left foot in the dressing. Is status post plantar abscess excision. Son is at bedside. Patient appears Cymraes-speaking only at son is translating. Discussed with RN as well. Patient is on vancomycin and cefepime. - Objective Vital Signs & Weight: Vital Signs (12 hours) Temp Pulse Resp BP BP Pulse Ox 06/29/20 12:10 98.4 F 70 14 166/89 H 95 06/29/20 09:33 72 182/84 H 06/29/20 07:15 98.1 F 72 16 182/84 H 97 06/29/20 03:58 97.9 F 63 18 151/78 H 96 Weight Weight 156 lb 8.451 oz I&O: 06/28/20 06/29/20 06/30/20 06:59 06:59 06:59 Intake Total 3390 Output Total 700 1100 Balance -700 2290 Result Diagrams: 06/29/20 05:51 06/29/20 05:51 Additional Labs: Accuchecks 06/29/20 06/28/20 06/28/20 05:16 19:59 15:13 POC Glucose 179 H 246 H 108 H Hospitalist ROS - Medication Medications: Active Medications Generic Name Dose Route Start Last Admin Trade Name Freq PRN Reason Stop Dose Admin Acetaminophen 650 mg 06/27/20 16:01 06/28/20 22:03 Acetaminophen 325 Mg Tab PO 650 mg Q4H PRN Administration Headache/Fever/Mild Pain (1-3) Aspirin 81 mg 06/28/20 09:00 06/29/20 09:33 Aspirin 81 Mg Enteric Coated Tablet PO 81 mg DAILY MONICA Administration Atenolol 50 mg 06/29/20 09:00 06/29/20 09:33 Atenolol 25 Mg Tab PO 50 mg DAILY MONICA Administration Enoxaparin Sodium 40 mg 06/28/20 09:00 06/29/20 09:33 Enoxaparin Sodium 40 Mg/0.4 Ml Syringe SC 40 mg 0900 MONICA Administration Sodium Chloride 1,000 mls @ 100 mls/hr 06/27/20 16:15 06/29/20 09:33 Normal Saline 0.9% IV 1,000 mls .Q10H MONICA Administration Cefepime HCl 1 gm/ Sodium 100 mls @ 200 mls/hr 06/28/20 18:00 06/29/20 05:58 Chloride IVPB 100 mls 0600,1800 MONICA Administration Vancomycin HCl 1 gm/ Device 200 mls @ 200 mls/hr 06/28/20 22:00 06/29/20 10:18 IVPB 200 mls 1000,2200 MONICA Administration Insulin Human Lispro 0 units 06/27/20 16:01 06/29/20 12:52 Humalog 300 Units/3 Ml Vial SC 6 unit .MODERATE SLIDING SC PRN Administration Moderate Correctional Scale Lisinopril 20 mg 06/29/20 09:00 06/29/20 09:33 Lisinopril 20 Mg Tab PO 20 mg BID MONICA Administration Sodium Chloride 10 ml 06/28/20 09:00 06/29/20 09:33 Flush - Normal Saline 10 Ml Syringe IVF 10 ml Q12HR MONICA Administration Tramadol HCl 50 mg 06/27/20 16:23 06/29/20 10:17 Tramadol Hcl 50 Mg Tab PO 50 mg Q6H PRN Administration Pain Hospitalist Exam Vitals: Vital Signs (12 hours) Temp Pulse Resp BP BP Pulse Ox 06/29/20 12:10 98.4 F 70 14 166/89 H 95 06/29/20 09:33 72 182/84 H 06/29/20 07:15 98.1 F 72 16 182/84 H 97 06/29/20 03:58 97.9 F 63 18 151/78 H 96 Weight Weight 156 lb 8.451 oz General Appearance: NAD, awake alert Eye: PERRL ENT: normocephalic atraumatic Neck: supple Heart: RRR, normal peripheral pulses Respiratory: CTAB, normal chest expansion Gastrointestinal: soft, normal bowel sounds Extremities - other findings: Left foot abscess excision. Neurological: cranial nerve grossly intact, no weakness, no focal deficits Psychiatric: A&O x 3 Hosp A/P - Plan Cellulitis and abscess of foot Code(s): L03.119 - CELLULITIS OF UNSPECIFIED PART OF LIMB; L02.619 - CUTANEOUS ABSCESS OF UNSPECIFIED FOOT Status: Acute (2) DM2 (diabetes mellitus, type 2) Status: Chronic (3) Diabetic neuropathy Code(s): E11.40 - TYPE 2 DIABETES MELLITUS WITH DIABETIC NEUROPATHY, UNSP Status: Chronic (4) HTN (hypertension) Code(s): I10 - ESSENTIAL (PRIMARY) HYPERTENSION Status: Chronic - Plan old records reviewed/req, continue antibiotics #1. Diabetic foot ulcers. Abscess of the left plantar foot. Status post incision and drainage by general surgery. 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 3. Uncontrolled diabetes. The patient desperately needs diabetic teaching. Sliding scale insulin. -We will follow-up on A1c Start him on Metformin low-dose #4. Acute kidney injury. Avoid nephrotoxins as much as possible. #5. Sepsis secondary skin/soft tissue infection. Gram stain from cultures collected on admission is showing gram-positive cocci in clusters and also gram-negative rods. I am going to broaden his antibiotics. I - vancomycin and cefepime. -Plan for wound care to see him today and decide whether he needs wound VAC or not. -Blood culture negative for 48 hours. -He has gram-negative rods and gram-positive cocci in pairs and clusters in the Gram stain of the foot ulcer -We will de-escalate the antibiotic in 1 to 2 days, Provided clinical stability.
[2020-06-29] MEDS: metFORMIN 500 MG TAB PO SCH (17:32)
[2020-06-30] MEDS: Sodium Chloride 0.9% 1,000 ML IV SCH ×3 (04:07→23:36)
[2020-06-30] MEDS: Cefepime 1 GM in Sodium Chloride 0.9% 100 ML IVPB SCH ×2 (06:21→17:07)
[2020-06-30] MEDS: Aspirin 81 mg Enteric Coated Tablet PO SCH (08:33)
[2020-06-30] MEDS: Atenolol 25 MG TAB PO SCH (08:33)
[2020-06-30] MEDS: Enoxaparin Sodium 40 MG/0.4 ML SYRINGE SC SCH (08:34)
[2020-06-30] MEDS: Lisinopril 20 MG TAB PO SCH ×2 (08:34→21:34)
[2020-06-30] MEDS: metFORMIN 500 MG TAB PO SCH ×2 (08:34→17:07)
[2020-06-30] MEDS: Vancomycin 1 GM in Premix Bag 1 BAG IVPB SCH ×2 (10:04→21:34)
[2020-06-30] MEDS: HumaLOG 300 UNITS/3 ML VIAL SC PRN (11:34)
--- NOTE | 2020-06-30 13:11 | PDOC.HOSPP ---
- Subjective Encounter Date: 06/30/20 Encounter Time: 10:45 Subjective: Patient doing well. He did not had any acute complaints this morning. He has wound VAC. - Objective Vital Signs & Weight: Vital Signs (12 hours) Temp Pulse Resp BP BP Pulse Ox 06/30/20 11:00 98.5 F 68 18 150/83 H 94 L 06/30/20 08:34 167/97 H 06/30/20 08:33 69 167/97 H 06/30/20 08:30 98.6 F 69 12 167/97 H 95 06/30/20 08:10 95 06/30/20 04:00 98.5 F 69 18 125/74 95 Weight Admit Weight 156 lb 8.451 oz Weight 156 lb 8.451 oz I&O: 06/29/20 06/30/20 07/01/20 06:59 06:59 06:59 Intake Total 3390 1900 Output Total 1100 1450 Balance 2290 450 Result Diagrams: 06/29/20 05:51 06/29/20 05:51 Additional Labs: Accuchecks 06/30/20 06/30/20 06/29/20 10:58 06:25 21:02 POC Glucose 226 H 148 H 129 H 06/29/20 15:42 POC Glucose 144 H Hospitalist ROS - Medication Medications: Active Medications Generic Name Dose Route Start Last Admin Trade Name Freq PRN Reason Stop Dose Admin Acetaminophen 650 mg 06/27/20 16:01 06/28/20 22:03 Acetaminophen 325 Mg Tab PO 650 mg Q4H PRN Administration Headache/Fever/Mild Pain (1-3) Aspirin 81 mg 06/28/20 09:00 06/30/20 08:33 Aspirin 81 Mg Enteric Coated Tablet PO 81 mg DAILY MONICA Administration Atenolol 50 mg 06/29/20 09:00 06/30/20 08:33 Atenolol 25 Mg Tab PO 50 mg DAILY MONICA Administration Enoxaparin Sodium 40 mg 06/28/20 09:00 06/30/20 08:34 Enoxaparin Sodium 40 Mg/0.4 Ml Syringe SC 40 mg 0900 MONICA Administration Sodium Chloride 1,000 mls @ 100 mls/hr 06/27/20 16:15 06/30/20 04:07 Normal Saline 0.9% IV 1,000 mls .Q10H MONICA Administration Cefepime HCl 1 gm/ Sodium 100 mls @ 200 mls/hr 06/28/20 18:00 06/30/20 06:21 Chloride IVPB 100 mls 0600,1800 MONICA Administration Vancomycin HCl 1 gm/ Device 200 mls @ 200 mls/hr 06/28/20 22:00 06/30/20 10:04 IVPB 200 mls 1000,2200 MONICA Administration Insulin Human Lispro 0 units 06/27/20 16:01 06/30/20 11:34 Humalog 300 Units/3 Ml Vial SC 4 unit .MODERATE SLIDING SC PRN Administration Moderate Correctional Scale Lisinopril 20 mg 06/29/20 09:00 06/30/20 08:34 Lisinopril 20 Mg Tab PO 20 mg BID MONICA Administration Metformin HCl 500 mg 06/29/20 17:00 06/30/20 08:34 Metformin 500 Mg Tab PO 500 mg BID-WM MONICA Administration Sodium Chloride 10 ml 06/28/20 09:00 06/30/20 08:34 Flush - Normal Saline 10 Ml Syringe IVF 10 ml Q12HR MONICA Administration Tramadol HCl 50 mg 06/27/20 16:23 06/29/20 20:24 Tramadol Hcl 50 Mg Tab PO 50 mg Q6H PRN Administration Pain Hospitalist Exam Vitals: Vital Signs (12 hours) Temp Pulse Resp BP BP Pulse Ox 06/30/20 11:00 98.5 F 68 18 150/83 H 94 L 06/30/20 08:34 167/97 H 06/30/20 08:33 69 167/97 H 06/30/20 08:30 98.6 F 69 12 167/97 H 95 06/30/20 08:10 95 06/30/20 04:00 98.5 F 69 18 125/74 95 Weight Admit Weight 156 lb 8.451 oz Weight 156 lb 8.451 oz General Appearance: awake alert Heart: RRR Respiratory: CTAB Gastrointestinal: soft, normal bowel sounds Extremities - other findings: Wound VAC on the left foot Neurological: no focal deficits Psychiatric: A&O x 3 Hosp A/P - Plan Cellulitis and abscess of foot Code(s): L03.119 - CELLULITIS OF UNSPECIFIED PART OF LIMB; L02.619 - CUTANEOUS ABSCESS OF UNSPECIFIED FOOT Status: Acute (2) DM2 (diabetes mellitus, type 2) Status: Chronic (3) Diabetic neuropathy Code(s): E11.40 - TYPE 2 DIABETES MELLITUS WITH DIABETIC NEUROPATHY, UNSP Status: Chronic (4) HTN (hypertension) Code(s): I10 - ESSENTIAL (PRIMARY) HYPERTENSION Status: Chronic - Plan old records reviewed/req, continue antibiotics #1. Diabetic foot ulcers. Abscess of the left plantar foot. Status post incision and drainage by general surgery. 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 3. Uncontrolled diabetes. The patient desperately needs diabetic teaching. Sliding scale insulin. -We will follow-up on A1c Start him on Metformin low-dose #4. Acute kidney injury. Avoid nephrotoxins as much as possible. #5. Sepsis secondary skin/soft tissue infection. Gram stain from cultures collected on admission is showing gram-positive cocci in clusters and also gram-negative rods. I am going to broaden his antibiotics. I - vancomycin and cefepime. -Plan for wound care to see him today and decide whether he needs wound VAC or not. -Blood culture negative for 48 hours. -He has gram-negative rods and gram-positive cocci in pairs and clusters in the Gram stain of the foot ulcer -We will de-escalate the antibiotic in 1 to 2 days, Provided clinical stability. --Wound VAC in place -She was on doxycycline when she had amputation of the right fifth toe in November 2018. -We will check with infectious disease whether she needs ongoing antibiotics.
[2020-06-30] MEDS: traMADol HCl 50 MG TAB PO PRN (17:07)
--- NOTE | 2020-06-30 20:16 | CON ---
DATE OF CONSULTATION: 06/30/2020 REASON FOR CONSULTATION: Left foot infection. HISTORY OF PRESENT ILLNESS: 64-year-old who has had a history of hypertension, type 2 diabetes with neuropathy, and prior amputation of the left foot 1st and 2nd rays. His last surgical intervention was in December [address] Harrell and it consisted of right 5th toe transphalangeal amputation. SPY imaging was done to verify that there was vascular perfusion of the lower leg to the area of planned amputation. At the end of April or early May, he had an episode of COVID-19, he stayed at home and was not very severe and then recently he completed the vaccination for SARS-CoV-2 and now he came in because of inflammatory process in the left foot with fever, pain 2 days before the admission. He has chronic calluses in the left foot plantar aspect and then he developed redness and swelling and pain associated with fever. There was some altered mental state as well. He had a temperature of 101 when he came in and the left foot showed a 2 x 2 wound in the plantar aspect of the foot with surrounding erythema and warmth. The 1st, 2nd, 3rd toes were absent. The x-ray of the extremity demonstrated soft tissue swelling with gas demonstrated involving the medial aspect of the distal remaining forefoot, left side. No definite osteolytic process was documented. He underwent surgical procedure on June 28 and this consisted of full-thickness excision of left foot plantar callus with debridement of skin, subcutaneous tissue. The surgical note was reviewed. There is an underlying abscess cavity under the callus. Cavity was irrigated and cleansed. There was direct communication with the bone of the distal 3rd metatarsal, but it did not appear that the 4th metatarsal was involved. The bone appeared intact. Currently, Mr. Cha is feeling well. He denies any headaches, no visual symptoms, sore throat, odynophagia, or dysphagia. No respiratory symptoms. No abdominal pain or back pain. No voiding difficulty. Minimal pain in the left foot. PAST MEDICAL HISTORY: Type 2 diabetes; hypertension; peripheral neuropathy; prior amputations of 1st, 2nd, and 3rd toes in the left foot; and partial amputation of the 5th toe right foot. ALLERGIES: PENICILLIN AND MORPHINE WITH RASHES. SOCIAL HISTORY: He is a former smoker. He is living somewhere in [place] with some friends. FAMILY HISTORY: Noncontributory. CURRENT MEDICATIONS: Include; 1. Cefepime. 2. Insulin. 3. Lisinopril. 4. Metformin. 5. Vancomycin. 6. Tramadol. PHYSICAL EXAMINATION: VITAL SIGNS: T-max 100.5, BP 160/90, heart rate 70, respiratory rate 18, O2 saturation 92-95. GENERAL: Appears in no distress. SKIN: Shows the left foot findings, the first picture shows the area of erythema and callus right under the 4th toe metatarsal skin site. The area after debridement shows a 1 cm hole. I could not see the bottom of the area right under the 4th toe at the metatarsophalangeal area. The callus had been removed. He has a peripheral IV access. He is voiding in the urinal. HEENT: Ocular movements conjugate. Oral cavity with numerous missing teeth. Oral mucosa normal. No jugular vein distention. NECK: Supple. LUNGS: Symmetric. Clear breath sounds. HEART: S1, S2, regular rate. No S3 or S4. ABDOMEN: Soft and not distended or tender. No ascites. No bladder distention. EXTREMITIES: No joint inflammatory activity outside the involved area. Pulses are 1+ in dorsalis pedis. Cap refill normal. NEUROLOGICAL: He is awake, oriented. Follows commands. Speech is normal. LABORATORY STUDIES: White cell count 7.2, hemoglobin 12.5, platelets 179 with 62% neutrophils, and INR 1.0. Creatinine was 1.0 as well. Liver profile normal. CRP 10. Albumin 4.3. Cultures with E faecalis from the foot with the usual susceptibility profile. Two sets of blood cultures pending, thus far no growth. ASSESSMENT: Type 2 diabetes with neuropathy and chronic calluses in the left foot with an abscess, which was very close to the bone but the bone appeared to be intact. Still it is possible that he might have early osteitis and what we will do is continue monitoring the cultures and hopefully tomorrow discharge planning with oral Augmentin, may be an additional second antimicrobial depending on the findings in the final culture report. The reported history of allergy to penicillin actually is not a true hypersensitivity reaction to the penicillin class of antibiotics. He states that he had some spots show up in his right upper extremity when he was getting intravenous antibiotics in the past, but he takes oral penicillin without any issues, so I think that we will be fine by continuing the treatment with Augmentin. I would continue the duration of therapy at least 4 weeks if not longer since there is a chance that he might have early osteitis. He is at high risk for recurrence of this problem due to the neuropathy. Job ID: [id number] [facility]
[2020-07-01] MEDS: traMADol HCl 50 MG TAB PO PRN (06:07)
[2020-07-01] MEDS: Cefepime 1 GM in Sodium Chloride 0.9% 100 ML IVPB SCH ×2 (06:09→18:04)
[2020-07-01] MEDS: Enoxaparin Sodium 40 MG/0.4 ML SYRINGE SC SCH (08:53)
[2020-07-01] MEDS: Atenolol 25 MG TAB PO SCH (08:54)
[2020-07-01] MEDS: hydrALAZINE 10 MG TAB PO SCH ×3 (08:54→18:04)
[2020-07-01] MEDS: Aspirin 81 mg Enteric Coated Tablet PO SCH (08:55)
[2020-07-01] MEDS: metFORMIN 500 MG TAB PO SCH ×2 (08:55→18:04)
[2020-07-01] MEDS: Lisinopril 20 MG TAB PO SCH ×2 (08:55→20:53)
[2020-07-01 09:59] LABS: Vancomycin, Trough 17.2 ug/mL
[2020-07-01] MEDS: Vancomycin 1 GM in Premix Bag 1 BAG IVPB SCH ×2 (10:12→21:17)
[2020-07-01] MEDS: Sodium Chloride 0.9% 1,000 ML IV SCH ×2 (10:19→21:27)
[2020-07-01] MEDS: HumaLOG 300 UNITS/3 ML VIAL SC PRN (12:05)
--- NOTE | 2020-07-01 13:07 | PDOC.HOSPP ---
- Subjective Encounter Date: 07/01/20 Encounter Time: 10:20 Subjective: Patient is sitting in the chairhe is doing well he has no complaints. ID note reviewed. - Objective Vital Signs & Weight: Vital Signs (12 hours) Temp Pulse Resp BP BP BP Pulse Ox 07/01/20 10:57 97.7 F 64 14 159/84 H 95 07/01/20 08:55 175/94 H 07/01/20 08:54 67 175/94 H 07/01/20 07:14 98.1 F 67 14 175/94 H 96 07/01/20 04:01 98.3 F 66 16 163/84 H 98 Weight Admit Weight 156 lb 8.451 oz Weight 156 lb 8.451 oz I&O: 06/30/20 07/01/20 07/02/20 06:59 06:59 06:59 Intake Total 1900 3710 Output Total 1450 1750 Balance 450 1960 Result Diagrams: 06/29/20 05:51 06/29/20 05:51 Additional Labs: Accuchecks 07/01/20 07/01/20 06/30/20 10:57 05:58 21:10 POC Glucose 183 H 132 H 123 H 06/30/20 06/29/20 15:35 12:06 POC Glucose 136 H 273 H Hospitalist ROS - Medication Medications: Active Medications Generic Name Dose Route Start Last Admin Trade Name Freq PRN Reason Stop Dose Admin Acetaminophen 650 mg 06/27/20 16:01 06/28/20 22:03 Acetaminophen 325 Mg Tab PO 650 mg Q4H PRN Administration Headache/Fever/Mild Pain (1-3) Aspirin 81 mg 06/28/20 09:00 07/01/20 08:55 Aspirin 81 Mg Enteric Coated Tablet PO 81 mg DAILY MONICA Administration Atenolol 50 mg 06/29/20 09:00 07/01/20 08:54 Atenolol 25 Mg Tab PO 50 mg DAILY MONICA Administration Enoxaparin Sodium 40 mg 06/28/20 09:00 07/01/20 08:53 Enoxaparin Sodium 40 Mg/0.4 Ml Syringe SC 40 mg 0900 MONICA Administration Hydralazine HCl 25 mg 07/01/20 09:00 07/01/20 08:54 Hydralazine 10 Mg Tab PO 25 mg QID MONICA Administration Sodium Chloride 1,000 mls @ 100 mls/hr 06/27/20 16:15 07/01/20 10:19 Normal Saline 0.9% IV 1,000 mls .Q10H MONICA Administration Cefepime HCl 1 gm/ Sodium 100 mls @ 200 mls/hr 06/28/20 18:00 07/01/20 06:09 Chloride IVPB 100 mls 0600,1800 MONICA Administration Vancomycin HCl 1 gm/ Device 200 mls @ 200 mls/hr 06/28/20 22:00 07/01/20 10:12 IVPB 200 mls 1000,2200 MONICA Administration Insulin Human Lispro 0 units 06/27/20 16:01 07/01/20 12:05 Humalog 300 Units/3 Ml Vial SC 2 unit .MODERATE SLIDING SC PRN Administration Moderate Correctional Scale Lisinopril 20 mg 06/29/20 09:00 07/01/20 08:55 Lisinopril 20 Mg Tab PO 20 mg BID MONICA Administration Metformin HCl 500 mg 06/29/20 17:00 07/01/20 08:55 Metformin 500 Mg Tab PO 500 mg BID-WM MONICA Administration Sodium Chloride 10 ml 06/28/20 09:00 07/01/20 08:55 Flush - Normal Saline 10 Ml Syringe IVF 10 ml Q12HR MONICA Administration Tramadol HCl 50 mg 06/27/20 16:23 07/01/20 06:07 Tramadol Hcl 50 Mg Tab PO 50 mg Q6H PRN Administration Pain Hospitalist Exam Vitals: Vital Signs (12 hours) Temp Pulse Resp BP BP BP Pulse Ox 07/01/20 10:57 97.7 F 64 14 159/84 H 95 07/01/20 08:55 175/94 H 07/01/20 08:54 67 175/94 H 07/01/20 07:14 98.1 F 67 14 175/94 H 96 07/01/20 04:01 98.3 F 66 16 163/84 H 98 Weight Admit Weight 156 lb 8.451 oz Weight 156 lb 8.451 oz General Appearance: NAD, awake alert Eye: PERRL ENT: normocephalic atraumatic Neck: supple Heart: RRR Respiratory: CTAB, normal chest expansion Gastrointestinal: soft, normal bowel sounds Extremities: 1+ LE edema Extremities - other findings: Wound VAC status post left foot I&D Neurological: cranial nerve grossly intact, no focal deficits Psychiatric: normal affect, normal behavior, A&O x 3 Hosp A/P - Plan Cellulitis and abscess of foot Chronic calluses in the left foot with abscess Possible early osteitis Code(s): L03.119 - CELLULITIS OF UNSPECIFIED PART OF LIMB; L02.619 - CUTANEOUS ABSCESS OF UNSPECIFIED FOOT Status: Acute (2) DM2 (diabetes mellitus, type 2) Status: Chronic (3) Diabetic neuropathy Code(s): E11.40 - TYPE 2 DIABETES MELLITUS WITH DIABETIC NEUROPATHY, UNSP Status: Chronic (4) HTN (hypertension) Code(s): I10 - ESSENTIAL (PRIMARY) HYPERTENSION Status: Chronic - Plan old records reviewed/req, continue antibiotics #1. Diabetic foot ulcers. Abscess of the left plantar foot. Status post incision and drainage by general surgery. 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 3. Uncontrolled diabetes. The patient desperately needs diabetic teaching. Sliding scale insulin. -We will follow-up on A1c Start him on Metformin low-dose #4. Acute kidney injury. Avoid nephrotoxins as much as possible. #5. Sepsis secondary skin/soft tissue infection. Gram stain from cultures collected on admission is showing gram-positive cocci in clusters and also gram-negative rods. I am going to broaden his antibiotics. I - vancomycin and cefepime. -Plan for wound care to see him today and decide whether he needs wound VAC or not. -Blood culture negative for 48 hours. -He has gram-negative rods and gram-positive cocci in pairs and clusters in the Gram stain of the foot ulcer -We will de-escalate the antibiotic in 1 to 2 days, Provided clinical stability. --Wound VAC in place -She was on doxycycline when she had amputation of the right fifth toe in November 2018. -We will check with infectious disease whether he needs ongoing antibiotics. 21st Enterococci faecalis sensitive for ampicillin gentamicin linezolid as well as penicillin group. Plan to switch him to Augmentin upon discharge for 4 weeks Needs to follow-up with Dr. Alberto Harrell and wound care clinic. If that can be arranged possibly we can discharge him home tomorrow.
[2020-07-01] MEDS: hydrALAZINE 25 MG TAB PO SCH (20:53)
[2020-07-02] MEDS: Cefepime 1 GM in Sodium Chloride 0.9% 100 ML IVPB SCH (05:13)
[2020-07-02] MEDS: Sodium Chloride 0.9% 1,000 ML IV SCH (05:13)
[2020-07-02 07:52] VITALS: TEMP 97.8
[2020-07-02] MEDS: Atenolol 25 MG TAB PO SCH (08:12)
[2020-07-02] MEDS: Aspirin 81 mg Enteric Coated Tablet PO SCH (08:12)
[2020-07-02] MEDS: metFORMIN 500 MG TAB PO SCH (08:12)
[2020-07-02] MEDS: Lisinopril 20 MG TAB PO SCH (08:13)
[2020-07-02] MEDS: hydrALAZINE 25 MG TAB PO SCH ×2 (08:14→12:51)
[2020-07-02] MEDS: Enoxaparin Sodium 40 MG/0.4 ML SYRINGE SC SCH (08:14)
[2020-07-02] MEDS: Vancomycin 1 GM in Premix Bag 1 BAG IVPB SCH (11:03)
[2020-07-02] MEDS: Acetaminophen 325 MG TAB PO PRN (11:06)
--- NOTE | 2020-07-02 14:40 | PDOC.DS.DS ---
Provider Date of Admission: 06/27/20 15:33 Admitting Provider: Des Barrett MD Primary Care Physician: Alexander Dent MD Course Hospital Course: 64-year-old male presented Cellulitis and abscess of foot Sepsis secondary skin/soft tissue infection. Chronic calluses in the left foot with abscess Possible early osteitis (2) DM2 (diabetes mellitus, type 2) Status: Chronic (3) Diabetic neuropathy (4) HTN (hypertension) #1. Diabetic foot ulcers. Abscess of the left plantar foot. Status post incision and drainage by general surgery. He has had multiple amputations of toes of the left foot in the past 3. Uncontrolled diabetes. A1c 9 Metformin started here and has to be increased in the primary care physician office in a week or so. #4. Acute kidney injury. Avoid nephrotoxins as much as possible. -Blood culture negative for 48 hours. -He has gram-negative rods and gram-positive cocci in pairs and clusters in the Gram stain of the foot ulcer - Enterococci faecalis sensitive for ampicillin gentamicin linezolid as well as penicillin group. Augmentin for 4 weeks Needs to follow-up with Dr. Alberto Harrell and wound care clinic. Discharge time over 30 minutes. Lab Results: 06/29/20 05:51 06/29/20 05:51 Microbiology - Entire Visit 06/27/20 19:20 Foot - Pending Bacterial Culture - Preliminary Enterococcus faecalis 06/27/20 14:20 Venous blood - Left Hand Blood Culture - Preliminary NO GROWTH AT 48 HOURS 06/27/20 14:24 Venous blood - Right Arm Blood Culture - Preliminary NO GROWTH AT 48 HOURS Vitals: Vital Signs (12 hours) Temp Pulse Resp BP BP BP Pulse Ox 07/02/20 12:51 71 160/83 H 07/02/20 11:35 97.8 F 71 18 196/92 H 95 07/02/20 08:14 72 172/96 H 07/02/20 08:13 172/96 H 07/02/20 08:12 72 07/02/20 07:08 97.8 F 72 18 172/96 H 95 07/02/20 04:18 98.1 F 65 16 154/82 H 97 Weight Admit Weight 156 lb 8.451 oz Weight 156 lb 8.451 oz Physical Exam: The patient was seen and examined on the day of discharge. Patient is ready to go home he is comfortable for discharge plan today. He speaks broken Guyanese. General Appearance: NAD Eye: PERRL ENT: normocephalic atraumatic Neck: supple Respiratory: CTAB, normal chest expansion Cardiovascular: RRR, normal peripheral pulses Gastrointestinal: soft, normal bowel sounds Extremities - other findings: Left foot in a dressing Neurological: cranial nerve grossly intact, no focal deficits PSYCH: normal affect, normal behavior, A&O x 3 Plan Prescriptions: Amoxicillin/Potassium Clav [Augmentin 875-125 Tablet] 1 each PO BID 30 Days #60 tablet Home Medications: Medication Instructions Recorded Confirmed Type glyBURIDE [Glyburide] 5 mg PO DAILY 03/15/15 12/06/18 History metFORMIN [Glucophage] 1,000 mg PO BID-WM #0 tab 03/18/15 12/06/18 Rx Aspirin [Ecotrin Low Strength] 81 mg PO DAILY 03/31/17 12/06/18 History Lisinopril [Zestril] 5 mg PO DAILY 09/28/17 12/06/18 History Atenolol 25 mg PO DAILY 12/06/18 12/06/18 History traMADol HCl [Tramadol HCl] 50 mg PO Q6H PRN #30 tablet 12/11/18 Rx Amoxicillin/Potassium Clav 1 each PO BID 30 Days #60 tablet 07/02/20 Rx [Augmentin 875-125 Tablet] Aspirin [Ecotrin Low Strength] 81 mg PO DAILY 30 Days #30 tab 07/02/20 Rx Atenolol [Tenormin] 50 mg PO DAILY 30 Days #30 tab 07/02/20 Rx Lisinopril [Zestril] 20 mg PO BID 30 Days #60 tab 07/02/20 Rx metFORMIN [Glucophage] 500 mg PO BID-WM 30 Days #60 tab 07/02/20 Rx Allergies: Penicillins Allergy (Verified 12/06/18 18:41) morphine Adverse Reaction (Intermediate, Verified 09/28/17 19:55) Rash Discharge Instructions:: follow up with Dr. Alberto Harrell in 2 to 3 weeks follow-up with wound care clinic follow-up with primary care physician in 1 week. Activity:: Activity as Tolerated Nourishment:: Regular Diet Referrals: [facility] [Outside] (They will contact you to start services this week. ) Alexander Dent MD [Primary Care Provider] - 7 Days Alberto Harrell MD [Active] - 10 Days (call to set up appt in 10-14 days ) Disposition: HOME Quality CORE MEASURES:: N/A
[2020-07-02 16:02] VITALS: BP 161/88
--- NOTE | 2020-07-04 00:32 | PQF ---
CLINICAL DOCUMENTATION CLARIFICATION FORM: Dear : John Ritchie Date / Time: 07/04/2020 0032 Please exercise your independent, professional judgment in responding to the clarification form. Clinical indicators are provided on the bottom of this form for your review COVID 19 Clarification and Manifestations: Please check appropriate box(es): A. COVID 19 virus diagnosis Validation: [ ] COVID-19 is ruled in (if so, please provide the evidence used to support this diagnosis) [ ] COVID-19 has been ruled out [ x ] COVID-19 is History only [ ] Other explanation of clinical findings [ ] Unable to determine Physician Signature: Date/Time: For continuity of documentation, please document condition throughout progress notes and discharge summary. Thank You. To be completed by CDI/Coding staff for physician review: Present Clinical Indicators - Signs / Symptoms / Labs Results and Location in Medical Record [x] SARS-CoV-2 Rap RNA: Detected Serology 06/27 [x] WBC 10.7, Plt count 180, Neutrophils 75.6 Laboratory 06/27 [x] BP 157/77, Pulse 83, Resp 20, Temp 100.5 Vital signs 06/27 [x] Chest X-ray: Clear lung [facility] Dr Jackson [x] At the end for April or early May, he had an episode of COVID-[address] Lozano 06/30 [x] He completed the vaccination for SARS-Cov-[address] Lozano 06/30 Present Risk Factors Results and Location in Medical Record [x] 64 year-old Male H&P p1 06/27 Dr Barrett [x] DM H&P p1 06/27 Dr Barrett [x] HTN H&P p1 06/27 Dr Barrett [x] Former Smoker ED Notes 06/27 [x] Sepsis Consult 06/27 Present Treatments Results and Location in Medical Record [x] IV Vancomycin 1.75 gm JUL 09 [x] IVF NS 1L JUL 09 [x] IV Cefepime 1 gm JUL 09 [x] IV Clindamycin 900 mg JUL 09 [x] ID Consult Consult Dr Lozano 06/30 CDS/Press Cutter Signature: Phylicia Wu Phone #: [phone] Date/Time: 07/04/2031 This is a permanent part of the Medical Record [facility]
== END 2020-07-02 15:55 | disposition home health service (06) | DRG 854 ==
LOC: ERS 13:51 → ERHOLD 15:33 → SJJU 06-28 02:46
PROVIDERS: ADMIT Internal Medicine; ATTEND Internal Medicine
PROC: 0JBR0ZZ Excision of Left Foot Subcutaneous Tissue and Fascia, Open Approach (ICD-10-PCS; principal; 2020-06-28)
DX: A41.59 Other Gram-negative sepsis (principal); L03.116 Cellulitis of left lower limb; N17.9 Acute kidney failure, unspecified; L84 Corns and callosities; E11.65 Type 2 diabetes mellitus with hyperglycemia; I10 Essential (primary) hypertension; E11.621 Type 2 diabetes mellitus with foot ulcer; L97.529 Non-pressure chronic ulcer of other part of left foot with unspecified severity; E78.5 Hyperlipidemia, unspecified; E78.00 Pure hypercholesterolemia, unspecified; E11.42 Type 2 diabetes mellitus with diabetic polyneuropathy; Z88.5 Allergy status to narcotic agent; Z88.0 Allergy status to penicillin; Z89.432 Acquired absence of left foot; Z89.412 Acquired absence of left great toe; Z89.422 Acquired absence of other left toe(s); Z89.421 Acquired absence of other right toe(s); Z89.022 Acquired absence of left finger(s); Z79.899 Other long term (current) drug therapy; Z79.82 Long term (current) use of aspirin; Z79.84 Long term (current) use of oral hypoglycemic drugs; Z87.891 Personal history of nicotine dependence; Z86.16 Personal history of COVID-19
CPT/HCPCS: 36415; 36416; 71045; 80048; 80053; 80202; 82550; 83036; 83605; 83735; 84484; 85025; 85610; 85652; 85730; 86140; 86850; 86900; 86901; 87040; 87070; 87077; 87186; 87205; 93005; 93923; 94760; 96365; 96366; 96375; J0692; J1650; J1815; J2405; J3010; J3370; J3490; J7030; U0002

== ENCOUNTER 2021-02-21 14:50 | Outpatient (CLI) | payer MEDICARE, MEDICAID | END 2021-02-21 14:51 | disposition home or self-care (01) | LOC: BICULT 14:50 | PROVIDERS: ATTEND Internal Medicine Nephrology | DX: N18.30 Chronic kidney disease, stage 3 unspecified (principal); N28.1 Cyst of kidney, acquired; N28.89 Other specified disorders of kidney and ureter; N27.0 Small kidney, unilateral | CPT/HCPCS: 76770 ==

== ENCOUNTER 2021-10-01 11:58 | Emergency (ER) | payer MEDICARE, OTHER ==
[2021-10-01] MEDS ORDERED: Ondansetron PF 4 MG/2 ML Vial ONE (12:37)
[2021-10-01] MEDS ORDERED: Morphine 4 MG/ML VIAL ONE (12:37)
[2021-10-01 12:57] LABS: #Eosinphils 0.1 thou/uL (0.0-0.7); #Lymphocytes 1.3 thou/uL (1.20-3.40); #Monocytes 0.9 thou/uL (0.11-0.59); #Neutrophils 8.5 thou/uL (1.40-6.50); %Basophils 0.2 % (0.0-1.0); %Eosinophils 0.5 % (0.0-10.0); %Lymphocytes 11.7 % (21.0-51.0); %Monocytes 7.9 % (0.0-10.0); %Neutrophils 79.6 % (42.0-75.0); Mean Corpuscular Volume 93.9 fL (78.0-98.0); Mean Platelet Volume 7.2 fL (7.4-10.4); Platelet Count 232 thou/uL (130-400); Red Blood Cell (RBC) Count 4.19 mill/uL (4.70-6.10); White Blood Cell (WBC) Count 10.7 thou/uL (4.8-10.8)
[2021-10-01 13:19] LABS: ALT (SGPT) 12 U/L (8-55); AST (SGOT) 11 U/L (5-34); Albumin 3.9 g/dL (3.4-4.8); Alkaline Phosphatase 82 U/L (40-110); Anion Gap 15 mmol/L (10-20); BUN (Urea Nitrogen) 21 mg/dL (8.4-25.7); Bilirubin, Total 0.9 mg/dL (0.2-1.2); Calc. Creatinine Clearance 0 mL/min (70-130); Calcium 9.3 mg/dL (7.8-10.44); Carbon Dioxide 24 mmol/L (23-31); Chloride 104 mmol/L (98-107); Globulin 3.2 g/dL (2.4-3.5); Glucose 175 mg/dL (80-115); Potassium 4.6 mmol/L (3.5-5.1); Protein, Total 7.1 g/dL (5.8-8.1); Sodium 138 mmol/L (136-145)
== END 2021-10-01 15:05 | disposition home or self-care (01) ==
LOC: ERS 11:58
DX: E11.52 Type 2 diabetes mellitus with diabetic peripheral angiopathy with gangrene (principal); I96 Gangrene, not elsewhere classified; E78.5 Hyperlipidemia, unspecified; E78.00 Pure hypercholesterolemia, unspecified; I10 Essential (primary) hypertension; Z87.891 Personal history of nicotine dependence; Z79.899 Other long term (current) drug therapy
CPT/HCPCS: 36415; 80053; 85025; 85652; 86140; 96374; 96375; J2270; J2405

== ENCOUNTER 2021-10-05 16:43 | Inpatient (IN) | payer MEDICARE, MEDICAID ==
[2021-10-05] MEDS ORDERED: Cefepime 2 GM VIAL ONE (17:12)
[2021-10-05] MEDS ORDERED: Acetaminophen 500 MG TAB ONE (17:13)
[2021-10-05 17:17] LABS: #Eosinphils 0.1 thou/uL (0.0-0.7); #Lymphocytes 1.3 thou/uL (1.20-3.40); #Neutrophils 10.1 thou/uL (1.40-6.50); %Basophils 0.3 % (0.0-1.0); %Eosinophils 0.8 % (0.0-10.0); %Lymphocytes 10.3 % (21.0-51.0); %Neutrophils 80.6 % (42.0-75.0); Hemoglobin 12.6 g/dL (14.0-18.0); Mean Corpuscular HGB CONC 33.2 g/dL (32.0-36.0); Mean Corpuscular Hemoglobin 31.7 pg (27.0-31.0); Mean Corpuscular Volume 95.5 fL (78.0-98.0); Mean Platelet Volume 7.3 fL (7.4-10.4); Platelet Count 272 thou/uL (130-400); RBC Distribution Width 10.9 % (11.5-14.5); Red Blood Cell (RBC) Count 3.97 mill/uL (4.70-6.10); White Blood Cell (WBC) Count 12.6 thou/uL (4.8-10.8)
[2021-10-05] MEDS ORDERED: Vancomycin 1.5 GRAM/300 ML BAG 1.5 GM in Premix Bag 1 BAG IVPB SCH (17:30)
[2021-10-05 17:38] LABS: ALT (SGPT) 8 U/L (8-55); AST (SGOT) 11 U/L (5-34); Albumin 3.8 g/dL (3.4-4.8); Alkaline Phosphatase 86 U/L (40-110); Anion Gap 11 mmol/L (10-20); BUN (Urea Nitrogen) 29 mg/dL (8.4-25.7); Bilirubin, Total 0.8 mg/dL (0.2-1.2); Calc. Creatinine Clearance 0 mL/min (70-130); Calcium 9.4 mg/dL (7.8-10.44); Carbon Dioxide 30 mmol/L (23-31); Chloride 98 mmol/L (98-107); Globulin 4.1 g/dL (2.4-3.5); Glucose 214 mg/dL (80-115); Protein, Total 7.9 g/dL (5.8-8.1); Sodium 134 mmol/L (136-145)
[2021-10-05 18:12] LABS: SARS-CoV-2 NAA Rapid Test Not Detected (NotDetected)
[2021-10-05] MEDS ORDERED: Dextrose 50% Abboject 50 ML SYRINGE SLOW IVP PRN (18:46)
[2021-10-05] MEDS ORDERED: Dextrose 5% in Water 1,000 ML IV PRN (18:46)
[2021-10-05] MEDS ORDERED: Insulin Regular 300 UNITS/3 ML VIAL SC PRN (18:46)
[2021-10-05] MEDS ORDERED: Ondansetron ODT 4 MG TAB PO PRN (18:47)
[2021-10-05] MEDS ORDERED: Ondansetron PF 4 MG/2 ML Vial IVP PRN (18:47)
[2021-10-05] MEDS ORDERED: Calcium Carbonate 500 MG ChewTAB PO PRN (18:47)
[2021-10-05] MEDS ORDERED: Morphine 2 MG/ML VIAL SLOW IVP PRN (18:51)
[2021-10-05] MEDS: Sodium Chloride 0.9% 1,000 ML IV SCH (21:17)
[2021-10-05] MEDS: metroNIDAZOLE 500 MG in Premix Bag 1 BAG IVPB SCH (21:18)
[2021-10-05] MEDS: Senokot S 8.6-50 MG TAB PO SCH (21:31)
[2021-10-05] MEDS: Heparin 5,000 UNITS/ML VIAL SC SCH (21:31)
[2021-10-05] MEDS: Famotidine 20 MG TAB PO SCH (21:31)
[2021-10-05] MEDS: HYDROcodone/Acetaminophen 5/325 mg Tablet PO PRN (21:47)
[2021-10-06] MEDS: metroNIDAZOLE 500 MG in Premix Bag 1 BAG IVPB SCH ×3 (04:36→20:27)
[2021-10-06] MEDS: HYDROcodone/Acetaminophen 5/325 mg Tablet PO PRN (04:42)
[2021-10-06] MEDS: Cefepime 2 GM in Sodium Chloride 0.9% 100 ML IVPB SCH ×2 (05:47→16:29)
[2021-10-06 06:23] LABS: #Eosinphils 0.1 thou/uL (0.0-0.7); #Lymphocytes 1.2 thou/uL (1.20-3.40); #Monocytes 1.1 thou/uL (0.11-0.59); #Neutrophils 7.8 thou/uL (1.40-6.50); %Basophils 0.2 % (0.0-1.0); %Eosinophils 1.4 % (0.0-10.0); %Lymphocytes 11.7 % (21.0-51.0); %Monocytes 10.4 % (0.0-10.0); %Neutrophils 76.3 % (42.0-75.0); Hemoglobin 11.3 g/dL (14.0-18.0); Mean Corpuscular HGB CONC 32.2 g/dL (32.0-36.0); Mean Corpuscular Hemoglobin 30.9 pg (27.0-31.0); Mean Corpuscular Volume 96.1 fL (78.0-98.0); Mean Platelet Volume 7.2 fL (7.4-10.4); Platelet Count 250 thou/uL (130-400); RBC Distribution Width 10.9 % (11.5-14.5); Red Blood Cell (RBC) Count 3.65 mill/uL (4.70-6.10); White Blood Cell (WBC) Count 10.2 thou/uL (4.8-10.8)
[2021-10-06 06:35] LABS: Hemoglobin A1c 7.4 % (4.0-6.0)
[2021-10-06 06:44] LABS: Anion Gap 12 mmol/L (10-20); BUN (Urea Nitrogen) 23 mg/dL (8.4-25.7); CRP (Inflammatory) 25.43 mg/dL (= or < 0.5); Calc. Creatinine Clearance 61 mL/min (70-130); Carbon Dioxide 25 mmol/L (23-31); Chloride 105 mmol/L (98-107); Glucose 127 mg/dL (80-115); Potassium 4.5 mmol/L (3.5-5.1); Sodium 137 mmol/L (136-145)
[2021-10-06] MEDS: Sodium Chloride 0.9% 1,000 ML IV SCH ×2 (07:58→16:29)
[2021-10-06] MEDS: Heparin 5,000 UNITS/ML VIAL SC SCH ×3 (07:59→20:28)
[2021-10-06] MEDS: Aspirin 81 mg Enteric Coated Tablet PO SCH (07:59)
[2021-10-06] MEDS: Senokot S 8.6-50 MG TAB PO SCH ×2 (07:59→20:30)
[2021-10-06] MEDS: Atenolol 25 MG TAB PO SCH ×2 (07:59→20:30)
[2021-10-06] MEDS: Saccharomyces boulardii 250 MG CAP PO SCH (07:59)
[2021-10-06] MEDS ORDERED: hydrALAZINE 25 MG TAB PO SCH (15:15)
[2021-10-06] MEDS: Insulin Regular 300 UNITS/3 ML VIAL SC PRN (17:43)
[2021-10-06] MEDS: Vancomycin 1 GM in Premix Bag 1 BAG IVPB SCH (17:43)
[2021-10-06] MEDS: Acetaminophen 325 MG TAB PO PRN (20:27)
[2021-10-06] MEDS: Famotidine 20 MG TAB PO SCH (20:30)
[2021-10-06] MEDS: hydrALAZINE 25 MG TAB PO SCH (21:09)
[2021-10-07] MEDS: Sodium Chloride 0.9% 1,000 ML IV SCH ×3 (03:50→17:13)
[2021-10-07] MEDS: metroNIDAZOLE 500 MG in Premix Bag 1 BAG IVPB SCH ×3 (04:05→21:17)
[2021-10-07] MEDS: Cefepime 2 GM in Sodium Chloride 0.9% 100 ML IVPB SCH ×2 (05:11→17:12)
[2021-10-07] MEDS: HYDROcodone/Acetaminophen 5/325 mg Tablet PO PRN ×2 (05:24→14:15)
[2021-10-07 05:48] LABS: #Eosinphils 0.1 thou/uL (0.0-0.7); #Monocytes 1.1 thou/uL (0.11-0.59); #Neutrophils 8.7 thou/uL (1.40-6.50); %Basophils 0.3 % (0.0-1.0); %Eosinophils 1.1 % (0.0-10.0); %Lymphocytes 9.2 % (21.0-51.0); %Monocytes 9.7 % (0.0-10.0); %Neutrophils 79.7 % (42.0-75.0); Hemoglobin 11.2 g/dL (14.0-18.0); Mean Corpuscular HGB CONC 33.1 g/dL (32.0-36.0); Mean Corpuscular Hemoglobin 31.4 pg (27.0-31.0); Mean Corpuscular Volume 94.9 fL (78.0-98.0); Mean Platelet Volume 7.1 fL (7.4-10.4); Platelet Count 249 thou/uL (130-400); RBC Distribution Width 10.8 % (11.5-14.5); Red Blood Cell (RBC) Count 3.58 mill/uL (4.70-6.10)
[2021-10-07 06:18] LABS: Anion Gap 12 mmol/L (10-20); BUN (Urea Nitrogen) 15 mg/dL (8.4-25.7); Calc. Creatinine Clearance 68 mL/min (70-130); Calcium 8.7 mg/dL (7.8-10.44); Carbon Dioxide 23 mmol/L (23-31); Chloride 106 mmol/L (98-107); Glucose 116 mg/dL (80-115); Potassium 4.2 mmol/L (3.5-5.1); Sodium 137 mmol/L (136-145)
[2021-10-07] MEDS: Heparin 5,000 UNITS/ML VIAL SC SCH ×3 (09:08→19:38)
[2021-10-07] MEDS: Atenolol 25 MG TAB PO SCH ×2 (09:12→21:11)
[2021-10-07] MEDS: Senokot S 8.6-50 MG TAB PO SCH ×2 (09:13→21:11)
[2021-10-07] MEDS: hydrALAZINE 25 MG TAB PO SCH ×3 (09:13→21:11)
[2021-10-07] MEDS: Aspirin 81 mg Enteric Coated Tablet PO SCH (09:13)
[2021-10-07] MEDS: Saccharomyces boulardii 250 MG CAP PO SCH (09:13)
[2021-10-07] MEDS: Acetaminophen 325 MG TAB PO PRN ×2 (09:14→21:18)
[2021-10-07] MEDS ORDERED: hydrALAZINE 25 MG TAB PO SCH (17:15)
[2021-10-07 17:31] LABS: Vancomycin, Trough 7.9 ug/mL
[2021-10-07] MEDS: Insulin Regular 300 UNITS/3 ML VIAL SC PRN (18:12)
[2021-10-07] MEDS: Vancomycin 1 GM in Premix Bag 1 BAG IVPB SCH (18:17)
[2021-10-07] MEDS ORDERED: Vancomycin HCl 500 MG in Sodium Chloride 0.9% 100 ML IVPB SCH (21:00)
[2021-10-07] MEDS: Famotidine 20 MG TAB PO SCH (21:11)
[2021-10-08] MEDS: Acetaminophen 325 MG TAB PO PRN ×3 (01:08→12:53)
[2021-10-08] MEDS: metroNIDAZOLE 500 MG in Premix Bag 1 BAG IVPB SCH ×3 (04:21→20:50)
[2021-10-08] MEDS: Cefepime 2 GM in Sodium Chloride 0.9% 100 ML IVPB SCH ×2 (05:33→18:45)
[2021-10-08] MEDS: Atenolol 25 MG TAB PO SCH ×2 (05:33→20:51)
[2021-10-08] MEDS: hydrALAZINE 25 MG TAB PO SCH ×3 (08:16→20:51)
[2021-10-08] MEDS: Saccharomyces boulardii 250 MG CAP PO SCH (08:16)
[2021-10-08] MEDS: Senokot S 8.6-50 MG TAB PO SCH ×2 (08:17→20:51)
[2021-10-08] MEDS: Heparin 5,000 UNITS/ML VIAL SC SCH ×3 (08:17→20:52)
[2021-10-08] MEDS: Aspirin 81 mg Enteric Coated Tablet PO SCH (08:17)
[2021-10-08] MEDS ORDERED: fentaNYL Citrate/PF 100 MCG/2 ML SYRINGE ONE (16:30)
[2021-10-08] MEDS ORDERED: PROPOFOL 200 MG/20 ML VIAL ONE (16:33)
[2021-10-08] MEDS ORDERED: Ketorolac Tromethamine 30 MG/ML VIAL ONE (16:33)
[2021-10-08] MEDS ORDERED: Lidocaine 1% PF 5 ML VIAL ONE (16:33)
[2021-10-08] MEDS ORDERED: Ondansetron PF 4 MG/2 ML Vial ONE (16:33)
[2021-10-08] MEDS ORDERED: Ondansetron HCl/PF 4 MG/2 ML Vial IVP PRN (16:59)
[2021-10-08] MEDS ORDERED: Promethazine HCl 25 MG/ML VIAL IM PRN (16:59)
[2021-10-08] MEDS ORDERED: Promethazine HCl 25 MG/ML VIAL IVPB PRN (16:59)
[2021-10-08] MEDS ORDERED: Communication Order-Pharmacy FS SCH (17:30)
[2021-10-08] MEDS ORDERED: Fentanyl 100 MCG/2 ML VIAL ONE (17:36)
[2021-10-08] MEDS ORDERED: Vancomycin 1.5 GRAM/300 ML BAG 1.5 GM in Premix Bag 1 BAG IVPB SCH (18:00)
[2021-10-08] MEDS: Sodium Chloride 0.9% 1,000 ML IV SCH (18:59)
[2021-10-08] MEDS: Famotidine 20 MG TAB PO SCH (20:51)
[2021-10-09] MEDS: traMADol HCl 50 MG TAB PO PRN ×2 (03:21→20:36)
[2021-10-09] MEDS: Sodium Chloride 0.9% 1,000 ML IV SCH ×5 (03:23→23:50)
[2021-10-09] MEDS: metroNIDAZOLE 500 MG in Premix Bag 1 BAG IVPB SCH ×3 (03:32→20:34)
[2021-10-09] MEDS: Cefepime 2 GM in Sodium Chloride 0.9% 100 ML IVPB SCH ×2 (04:31→16:55)
[2021-10-09] MEDS: Atenolol 25 MG TAB PO SCH ×2 (05:10→20:37)
[2021-10-09] MEDS: Heparin 5,000 UNITS/ML VIAL SC SCH ×3 (07:16→20:35)
[2021-10-09] MEDS: Aspirin 81 mg Enteric Coated Tablet PO SCH (07:16)
[2021-10-09] MEDS: hydrALAZINE 25 MG TAB PO SCH ×3 (07:25→20:36)
[2021-10-09] MEDS: Saccharomyces boulardii 250 MG CAP PO SCH (07:34)
[2021-10-09] MEDS: Senokot S 8.6-50 MG TAB PO SCH ×2 (07:34→20:36)
[2021-10-09] MEDS ORDERED: Heparin 10,000 UNITS/ 10 ML VIAL ONE (08:12)
[2021-10-09] MEDS ORDERED: Fentanyl 100 MCG/2 ML VIAL ONE (08:25)
[2021-10-09] MEDS ORDERED: Midazolam HCl 2 mg/2 ml Vial ONE ×2 (08:26→10:05)
[2021-10-09] MEDS ORDERED: Protamine Sulfate 50 MG/5 ML VIAL ONE (10:19)
[2021-10-09] MEDS ORDERED: Iopamidol 370 76% 100 ML VIAL ONE (14:04)
[2021-10-09] MEDS ORDERED: Iopamidol 370 76% 50 ML VIAL FS ONE (14:04)
[2021-10-09] MEDS ORDERED: hydrALAZINE 25 MG TAB ONE (15:00)
[2021-10-09] MEDS: Acetaminophen 500 MG TAB PO PRN ×2 (17:00→23:41)
[2021-10-09 17:28] LABS: Vancomycin, Trough 12.7 ug/mL
[2021-10-09] MEDS ORDERED: VANCOMYCIN 1.75 GM/500 ML BAG 1.75 GM in Premix Bag 1 BAG IVPB SCH (18:00)
[2021-10-09] MEDS: Famotidine 20 MG TAB PO SCH (20:36)
[2021-10-10] MEDS: metroNIDAZOLE 500 MG in Premix Bag 1 BAG IVPB SCH ×3 (03:19→21:01)
[2021-10-10 04:38] LABS: #Eosinphils 0.2 thou/uL (0.0-0.7); #Lymphocytes 1.3 thou/uL (1.20-3.40); #Neutrophils 6.9 thou/uL (1.40-6.50); %Basophils 0.3 % (0.0-1.0); %Eosinophils 2.2 % (0.0-10.0); %Lymphocytes 13.8 % (21.0-51.0); %Monocytes 10.6 % (0.0-10.0); %Neutrophils 73.2 % (42.0-75.0); Hemoglobin 9.6 g/dL (14.0-18.0); Mean Corpuscular HGB CONC 32.9 g/dL (32.0-36.0); Mean Corpuscular Hemoglobin 30.8 pg (27.0-31.0); Mean Corpuscular Volume 93.5 fL (78.0-98.0); Mean Platelet Volume 6.9 fL (7.4-10.4); Platelet Count 279 thou/uL (130-400); RBC Distribution Width 11.2 % (11.5-14.5); Red Blood Cell (RBC) Count 3.14 mill/uL (4.70-6.10); White Blood Cell (WBC) Count 9.5 thou/uL (4.8-10.8)
[2021-10-10] MEDS: Cefepime 2 GM in Sodium Chloride 0.9% 100 ML IVPB SCH ×2 (05:17→18:40)
[2021-10-10] MEDS: Sodium Chloride 0.9% 1,000 ML IV SCH ×4 (05:18→23:08)
[2021-10-10 06:57] LABS: ALT (SGPT) 18 U/L (8-55); AST (SGOT) 21 U/L (5-34); Albumin 2.7 g/dL (3.4-4.8); Alkaline Phosphatase 81 U/L (40-110); Anion Gap 13 mmol/L (10-20); BUN (Urea Nitrogen) 12 mg/dL (8.4-25.7); Bilirubin, Total 0.4 mg/dL (0.2-1.2); Calc. Creatinine Clearance 82 mL/min (70-130); Calcium 8.2 mg/dL (7.8-10.44); Carbon Dioxide 21 mmol/L (23-31); Chloride 107 mmol/L (98-107); Globulin 3.1 g/dL (2.4-3.5); Glucose 102 mg/dL (80-115); Potassium 3.9 mmol/L (3.5-5.1); Protein, Total 5.8 g/dL (5.8-8.1); Sodium 137 mmol/L (136-145)
[2021-10-10] MEDS: Saccharomyces boulardii 250 MG CAP PO SCH (09:22)
[2021-10-10] MEDS: hydrALAZINE 25 MG TAB PO SCH ×3 (09:22→21:54)
[2021-10-10] MEDS: Aspirin 81 mg Enteric Coated Tablet PO SCH (09:22)
[2021-10-10] MEDS: Heparin 5,000 UNITS/ML VIAL SC SCH ×3 (09:22→21:54)
[2021-10-10] MEDS: Atenolol 25 MG TAB PO SCH ×2 (09:22→21:54)
[2021-10-10] MEDS: Senokot S 8.6-50 MG TAB PO SCH ×2 (09:23→21:54)
[2021-10-10] MEDS: traMADol HCl 50 MG TAB PO PRN ×2 (12:14→21:56)
[2021-10-10] MEDS ORDERED: Morphine 2 MG/ML VIAL SLOW IVP PRN (12:31)
[2021-10-10] MEDS ORDERED: Morphine 2 MG/ML VIAL SLOW IVP SCH (12:45)
[2021-10-10] MEDS ORDERED: HumaLOG 300 UNITS/3 ML VIAL SC PRN (12:46)
[2021-10-10] MEDS ORDERED: Dextrose 50% Abboject 50 ML SYRINGE SLOW IVP PRN (12:46)
[2021-10-10] MEDS ORDERED: Dextrose 5% in Water 1,000 ML IV PRN (12:46)
[2021-10-10] MEDS: Famotidine 20 MG TAB PO SCH (21:54)
[2021-10-11] MEDS: metroNIDAZOLE 500 MG in Premix Bag 1 BAG IVPB SCH ×3 (04:02→20:11)
[2021-10-11] MEDS: Cefepime 2 GM in Sodium Chloride 0.9% 100 ML IVPB SCH ×2 (04:42→17:33)
[2021-10-11] MEDS ORDERED: Loperamide HCl 2 MG CAP PO PRN (07:51)
[2021-10-11] MEDS ORDERED: Zolpidem Tartrate 5 MG TAB PO PRN (07:51)
[2021-10-11] MEDS ORDERED: Artificial Tear Sol 15 ML BOT EA EYE PRN (07:51)
[2021-10-11] MEDS ORDERED: GUAIFENESIN SF SOLN 200 MG/10 ML UDCUP PO PRN (07:51)
[2021-10-11] MEDS ORDERED: hydrALAZINE 20 MG/ML VIAL SLOW IVP PRN (07:51)
[2021-10-11] MEDS ORDERED: Cepastat Lozenges 1 LOZ PO PRN (07:51)
[2021-10-11] MEDS ORDERED: Moisturizing Cream (Eucerin) 113 GM JAR TOP PRN (07:51)
[2021-10-11] MEDS ORDERED: Loratadine 10 MG TAB PO PRN (07:51)
[2021-10-11 08:11] LABS: #Eosinphils 0.2 thou/uL (0.0-0.7); #Lymphocytes 1.2 thou/uL (1.20-3.40); %Basophils 0.2 % (0.0-1.0); %Eosinophils 1.7 % (0.0-10.0); %Lymphocytes 12.5 % (21.0-51.0); %Monocytes 10.3 % (0.0-10.0); %Neutrophils 75.3 % (42.0-75.0); Hemoglobin 9.4 g/dL (14.0-18.0); Mean Corpuscular HGB CONC 32.6 g/dL (32.0-36.0); Mean Corpuscular Hemoglobin 31.2 pg (27.0-31.0); Mean Corpuscular Volume 95.7 fL (78.0-98.0); Mean Platelet Volume 6.6 fL (7.4-10.4); Platelet Count 281 thou/uL (130-400); Red Blood Cell (RBC) Count 3.01 mill/uL (4.70-6.10); White Blood Cell (WBC) Count 9.3 thou/uL (4.8-10.8)
[2021-10-11] MEDS ORDERED: Aspirin 81 mg Enteric Coated Tablet PO SCH (09:00)
[2021-10-11] MEDS: Aspirin 81 mg Enteric Coated Tablet PO SCH (09:36)
[2021-10-11] MEDS: Heparin 5,000 UNITS/ML VIAL SC SCH ×3 (09:37→20:12)
[2021-10-11] MEDS: Famotidine 20 MG TAB PO SCH ×2 (09:37→20:12)
[2021-10-11] MEDS: hydrALAZINE 25 MG TAB PO SCH ×3 (09:37→20:11)
[2021-10-11] MEDS: Atenolol 25 MG TAB PO SCH ×2 (09:37→20:12)
[2021-10-11] MEDS: Saccharomyces boulardii 250 MG CAP PO SCH (09:38)
[2021-10-11] MEDS: Senokot S 8.6-50 MG TAB PO SCH ×2 (09:38→20:11)
[2021-10-11] MEDS: Sodium Chloride 0.9% 1,000 ML IV SCH ×2 (10:00→23:33)
[2021-10-11] MEDS: traMADol HCl 50 MG TAB PO PRN ×2 (15:37→21:24)
[2021-10-11] MEDS: Acetaminophen 500 MG TAB PO PRN (20:10)
[2021-10-12] MEDS: metroNIDAZOLE 500 MG in Premix Bag 1 BAG IVPB SCH ×3 (03:14→20:59)
[2021-10-12] MEDS: Cefepime 2 GM in Sodium Chloride 0.9% 100 ML IVPB SCH ×2 (04:30→16:25)
[2021-10-12] MEDS: hydrALAZINE 25 MG TAB PO SCH ×3 (08:20→21:00)
[2021-10-12] MEDS: Saccharomyces boulardii 250 MG CAP PO SCH (08:21)
[2021-10-12] MEDS: Atenolol 25 MG TAB PO SCH ×2 (08:21→20:59)
[2021-10-12] MEDS: Famotidine 20 MG TAB PO SCH ×2 (08:21→21:00)
[2021-10-12] MEDS: Aspirin 81 mg Enteric Coated Tablet PO SCH (08:21)
[2021-10-12] MEDS: Senokot S 8.6-50 MG TAB PO SCH ×2 (08:22→21:00)
[2021-10-12] MEDS: traMADol HCl 50 MG TAB PO PRN ×2 (08:26→20:59)
[2021-10-12] MEDS: Heparin 5,000 UNITS/ML VIAL SC SCH ×3 (08:27→21:00)
[2021-10-12] MEDS: Sodium Chloride 0.9% 1,000 ML IV SCH (11:36)
[2021-10-12] MEDS: HumaLOG 300 UNITS/3 ML VIAL SC PRN (16:25)
[2021-10-13] MEDS: metroNIDAZOLE 500 MG in Premix Bag 1 BAG IVPB SCH ×3 (04:00→21:01)
[2021-10-13] MEDS: Cefepime 2 GM in Sodium Chloride 0.9% 100 ML IVPB SCH ×2 (05:16→17:36)
[2021-10-13 05:44] LABS: #Eosinphils 0.1 thou/uL (0.0-0.7); #Lymphocytes 1.4 thou/uL (1.20-3.40); #Monocytes 1.1 thou/uL (0.11-0.59); #Neutrophils 6.3 thou/uL (1.40-6.50); %Basophils 0.4 % (0.0-1.0); %Eosinophils 1.5 % (0.0-10.0); %Monocytes 11.9 % (0.0-10.0); %Neutrophils 70.2 % (42.0-75.0); Hemoglobin 9.1 g/dL (14.0-18.0); Mean Corpuscular HGB CONC 33.9 g/dL (32.0-36.0); Mean Corpuscular Hemoglobin 31.4 pg (27.0-31.0); Mean Corpuscular Volume 92.5 fL (78.0-98.0); Mean Platelet Volume 6.1 fL (7.4-10.4); Platelet Count 274 thou/uL (130-400); RBC Distribution Width 11.1 % (11.5-14.5); Red Blood Cell (RBC) Count 2.89 mill/uL (4.70-6.10); White Blood Cell (WBC) Count 8.9 thou/uL (4.8-10.8)
[2021-10-13 06:09] LABS: Anion Gap 10 mmol/L (10-20); BUN (Urea Nitrogen) 7 mg/dL (8.4-25.7); CRP (Inflammatory) 15.77 mg/dL (= or < 0.5); Calc. Creatinine Clearance 80 mL/min (70-130); Calcium 8.5 mg/dL (7.8-10.44); Carbon Dioxide 26 mmol/L (23-31); Chloride 103 mmol/L (98-107); Glucose 125 mg/dL (80-115); Potassium 3.4 mmol/L (3.5-5.1); Sodium 136 mmol/L (136-145)
[2021-10-13] MEDS: traMADol HCl 50 MG TAB PO PRN ×2 (08:10→18:16)
[2021-10-13] MEDS: Atenolol 25 MG TAB PO SCH ×2 (08:11→21:01)
[2021-10-13] MEDS: Aspirin 81 mg Enteric Coated Tablet PO SCH (08:11)
[2021-10-13] MEDS: Famotidine 20 MG TAB PO SCH ×2 (08:11→21:01)
[2021-10-13] MEDS: Heparin 5,000 UNITS/ML VIAL SC SCH ×3 (08:12→21:02)
[2021-10-13] MEDS: Saccharomyces boulardii 250 MG CAP PO SCH (08:12)
[2021-10-13] MEDS: hydrALAZINE 25 MG TAB PO SCH ×3 (08:12→21:02)
[2021-10-13] MEDS: Senokot S 8.6-50 MG TAB PO SCH ×2 (08:12→21:02)
[2021-10-13] MEDS ORDERED: Potassium Chloride 20 MEQ TAB PO SCH (11:15)
[2021-10-13] MEDS: HumaLOG 300 UNITS/3 ML VIAL SC PRN ×2 (11:24→17:37)
[2021-10-13 17:54] LABS: HBSAg Index 0.25 S/CO (0-0.99); HIV (1/2) Antibody/Antigen Non-Reactive (NonReactive); HIV 1/2 INDEX 0.09 S/CO (<1.00); Hep B Surf Ag Non-Reactive S/CO (NonReactive); Hep C IgG Ab Non-Reactive (NonReactive); Hep C Index 0.34 S/CO (0-0.79)
[2021-10-14] MEDS: metroNIDAZOLE 500 MG in Premix Bag 1 BAG IVPB SCH ×2 (04:35→13:03)
[2021-10-14] MEDS: Cefepime 2 GM in Sodium Chloride 0.9% 100 ML IVPB SCH (05:44)
[2021-10-14 06:08] LABS: #Eosinphils 0.2 thou/uL (0.0-0.7); #Lymphocytes 1.3 thou/uL (1.20-3.40); #Neutrophils 6.8 thou/uL (1.40-6.50); %Basophils 0.2 % (0.0-1.0); %Eosinophils 2.1 % (0.0-10.0); %Lymphocytes 13.8 % (21.0-51.0); %Neutrophils 72.9 % (42.0-75.0); Hemoglobin 9.8 g/dL (14.0-18.0); Mean Corpuscular HGB CONC 32.5 g/dL (32.0-36.0); Mean Corpuscular Hemoglobin 30.9 pg (27.0-31.0); Mean Corpuscular Volume 95.3 fL (78.0-98.0); Mean Platelet Volume 6.9 fL (7.4-10.4); Platelet Count 362 thou/uL (130-400); RBC Distribution Width 11.3 % (11.5-14.5); Red Blood Cell (RBC) Count 3.17 mill/uL (4.70-6.10); White Blood Cell (WBC) Count 9.4 thou/uL (4.8-10.8)
[2021-10-14 06:33] LABS: Anion Gap 12 mmol/L (10-20); BUN (Urea Nitrogen) 6 mg/dL (8.4-25.7); Calc. Creatinine Clearance 76 mL/min (70-130); Carbon Dioxide 28 mmol/L (23-31); Chloride 102 mmol/L (98-107); Glucose 115 mg/dL (80-115); Magnesium 1.9 mg/dL (1.6-2.6); Potassium 3.9 mmol/L (3.5-5.1); Sodium 138 mmol/L (136-145)
[2021-10-14 09:02] VITALS: TEMP 98.8
[2021-10-14] MEDS: Atenolol 25 MG TAB PO SCH (09:40)
[2021-10-14] MEDS: Aspirin 81 mg Enteric Coated Tablet PO SCH (09:40)
[2021-10-14] MEDS: Heparin 5,000 UNITS/ML VIAL SC SCH ×2 (09:40→16:18)
[2021-10-14] MEDS: Famotidine 20 MG TAB PO SCH (09:40)
[2021-10-14] MEDS: hydrALAZINE 25 MG TAB PO SCH ×2 (09:41→16:13)
[2021-10-14] MEDS: Senokot S 8.6-50 MG TAB PO SCH (09:41)
[2021-10-14] MEDS: Saccharomyces boulardii 250 MG CAP PO SCH (10:45)
[2021-10-14] MEDS: HumaLOG 300 UNITS/3 ML VIAL SC PRN ×2 (10:46→16:14)
[2021-10-14 11:52] VITALS: BMI 26.6
[2021-10-14 16:13] VITALS: BP 159/72
== END 2021-10-14 17:43 | disposition home or self-care (01) | DRG 854 ==
LOC: ERS 16:43 → T4-B 18:02 → 2NO 10-09 15:53 → MSONC 10-12 14:22
PROVIDERS: ADMIT Internal Medicine; ATTEND Internal Medicine
PROC: 3E03329 Introduction of Other Anti-infective into Peripheral Vein, Percutaneous Approach (ICD-10-PCS; 2021-10-05)
PROC: 0Y6M0ZB Detachment at Right Foot, Partial 2nd Ray, Open Approach (ICD-10-PCS; principal; 2021-10-08)
PROC: 047T3ZZ Dilation of Right Peroneal Artery, Percutaneous Approach (ICD-10-PCS; 2021-10-09)
PROC: B41DZZZ Fluoroscopy of Aorta and Bilateral Lower Extremity Arteries (ICD-10-PCS; 2021-10-09)
DX: A41.9 Sepsis, unspecified organism (principal); E11.52 Type 2 diabetes mellitus with diabetic peripheral angiopathy with gangrene; L03.115 Cellulitis of right lower limb; E87.1 Hypo-osmolality and hyponatremia; R65.20 Severe sepsis without septic shock; E11.40 Type 2 diabetes mellitus with diabetic neuropathy, unspecified; Z20.822 Contact with and (suspected) exposure to COVID-19; E11.628 Type 2 diabetes mellitus with other skin complications; I12.9 Hypertensive chronic kidney disease with stage 1 through stage 4 chronic kidney disease, or unspecified chronic kidney disease; E11.22 Type 2 diabetes mellitus with diabetic chronic kidney disease; N18.30 Chronic kidney disease, stage 3 unspecified; D63.1 Anemia in chronic kidney disease; E66.9 Obesity, unspecified; E78.5 Hyperlipidemia, unspecified; Z88.0 Allergy status to penicillin; Z88.5 Allergy status to narcotic agent; Z87.891 Personal history of nicotine dependence; Z79.84 Long term (current) use of oral hypoglycemic drugs; Z79.82 Long term (current) use of aspirin; Z79.899 Other long term (current) drug therapy; Z68.26 Body mass index [BMI] 26.0-26.9, adult
CPT/HCPCS: 36247; 36415; 36416; 37246; 37247; 80048; 80053; 80202; 83036; 83605; 83735; 85025; 85347; 86140; 86803; 87040; 87081; 87340; 87389; 88305; 88311; 93005; 93010; 96365; 96367; 99152; 99153; C1887; J0692; J1644; J1815; J1885; J2250; J2270; J2405; J2704; J2720; J3010; J3370; J3490; J7050; Q9967; U0003; U0005

== ENCOUNTER 2021-10-19 18:25 | Emergency (ER) | payer MEDICARE, MEDICAID ==
[2021-10-19 19:26] LABS: #Eosinphils 0.2 thou/uL (0.0-0.7); #Lymphocytes 1.3 thou/uL (1.20-3.40); #Neutrophils 8.2 thou/uL (1.40-6.50); %Basophils 0.3 % (0.0-1.0); %Eosinophils 1.6 % (0.0-10.0); %Lymphocytes 12.1 % (21.0-51.0); %Monocytes 9.3 % (0.0-10.0); %Neutrophils 76.6 % (42.0-75.0); Hemoglobin 10.9 g/dL (14.0-18.0); Mean Corpuscular HGB CONC 33.4 g/dL (32.0-36.0); Mean Corpuscular Hemoglobin 31.6 pg (27.0-31.0); Mean Corpuscular Volume 94.4 fL (78.0-98.0); Mean Platelet Volume 6.1 fL (7.4-10.4); Platelet Count 491 thou/uL (130-400); RBC Distribution Width 11.6 % (11.5-14.5); Red Blood Cell (RBC) Count 3.46 mill/uL (4.70-6.10); White Blood Cell (WBC) Count 10.7 thou/uL (4.8-10.8)
[2021-10-19 19:48] LABS: ALT (SGPT) 23 U/L (8-55); AST (SGOT) 25 U/L (5-34); Albumin 3.7 g/dL (3.4-4.8); Alkaline Phosphatase 82 U/L (40-110); Anion Gap 17 mmol/L (10-20); BUN (Urea Nitrogen) 22 mg/dL (8.4-25.7); Bilirubin, Total 0.5 mg/dL (0.2-1.2); Calc. Creatinine Clearance 0 mL/min (70-130); Calcium 9.5 mg/dL (7.8-10.44); Carbon Dioxide 26 mmol/L (23-31); Chloride 97 mmol/L (98-107); Globulin 4.3 g/dL (2.4-3.5); Glucose 142 mg/dL (80-115); Potassium 4.5 mmol/L (3.5-5.1); Sodium 135 mmol/L (136-145)
== END 2021-10-19 22:39 | disposition home or self-care (01) ==
LOC: ERS 18:25
DX: I77.9 Disorder of arteries and arterioles, unspecified (principal); I10 Essential (primary) hypertension; E11.9 Type 2 diabetes mellitus without complications; E78.5 Hyperlipidemia, unspecified; Z87.891 Personal history of nicotine dependence; Z79.899 Other long term (current) drug therapy; Z79.84 Long term (current) use of oral hypoglycemic drugs; Z79.82 Long term (current) use of aspirin
CPT/HCPCS: 36415; 80053; 83605; 85025; 87040; 93923

== ENCOUNTER 2021-10-29 15:43 | Outpatient (CLI) | payer MEDICARE, MEDICAID ==
[2021-10-29 16:36] LABS: Hemoglobin 10.5 g/dL (13.5-17.5); Mean Corpuscular HGB CONC 31.8 g/dL (32.0-36.0); Mean Corpuscular Hemoglobin 29.5 pg (27.0-33.0); Mean Corpuscular Volume 92.7 fl (81.2-95.1); Mean Platelet Volume 9.6 fl (7.4-10.4); Platelet Count 333 10x3/uL (150-450); RBC Distribution Width 12.3 % (11.5-14.5); Red Blood Cell (RBC) Count 3.56 10x6/uL (4.32-5.72); White Blood Cell (WBC) Count 9.6 10x3/uL (3.5-10.5)
[2021-10-29 16:44] LABS: Anion Gap 16 mmol/L (10-20); BUN (Urea Nitrogen) 28 mg/dL (8.4-25.7); Calc. Creatinine Clearance 0 mL/min (70-130); Calcium 9.2 mg/dL (7.8-10.44); Carbon Dioxide 25 mmol/L (23-31); Chloride 103 mmol/L (98-107); Glucose 199 mg/dL (80-115); Potassium 4.5 mmol/L (3.5-5.1); Sodium 139 mmol/L (136-145)
== END 2021-10-29 15:44 | disposition home or self-care (01) ==
LOC: LABBT 15:43
PROVIDERS: ATTEND Thoracic Surgery (Cardiothoracic Vascular Surgery)
DX: Z01.812 Encounter for preprocedural laboratory examination (principal); Z20.822 Contact with and (suspected) exposure to COVID-19
CPT/HCPCS: 80048; 85027; U0003; U0005

== ENCOUNTER 2021-10-30 06:54 | Day surgery (SDC) | payer MEDICARE, MEDICAID ==
[2021-10-29 15:17] VITALS: BMI 27.3
[2021-10-30] MEDS ORDERED: Iopamidol 370 76% 100 ML VIAL ONE (07:39)
[2021-10-30] MEDS ORDERED: Lidocaine 1% (PF) 30 ML VIAL ONE (09:53)
[2021-10-30] MEDS ORDERED: Heparin 10,000 UNITS/ 10 ML VIAL ONE (10:38)
[2021-10-30] MEDS ORDERED: Protamine Sulfate 50 MG/5 ML VIAL ONE (11:38)
[2021-10-30] MEDS ORDERED: Clopidogrel Bisulfate 300 MG TAB ONE (12:34)
[2021-10-30] MEDS ORDERED: Clopidogrel Bisulfate 300 MG TAB PO SCH (12:45)
== END 2021-10-30 17:15 | disposition home or self-care (01) ==
LOC: SDC 06:54
PROVIDERS: ATTEND Thoracic Surgery (Cardiothoracic Vascular Surgery)
PROC: 047R3ZZ Dilation of Right Posterior Tibial Artery, Percutaneous Approach (ICD-10-PCS; principal; 2021-10-30)
DX: I70.261 Atherosclerosis of native arteries of extremities with gangrene, right leg (principal); E11.40 Type 2 diabetes mellitus with diabetic neuropathy, unspecified; E78.5 Hyperlipidemia, unspecified; I10 Essential (primary) hypertension; Z79.82 Long term (current) use of aspirin; Z79.84 Long term (current) use of oral hypoglycemic drugs; Z79.899 Other long term (current) drug therapy; Z88.0 Allergy status to penicillin; Z88.5 Allergy status to narcotic agent
CPT/HCPCS: 37228; 75710; 82962; 85347 ×2; C1769; C1887; 36416; J1644; J2001; J2720; Q9967

== ENCOUNTER 2021-11-24 14:15 | Outpatient (CLI) | payer OTHER, MEDICAID, MEDICARE ==
[2021-11-24 16:11] LABS: #Eosinphils 0.1 10x3/uL (0.0-0.5); #Monocytes 0.8 10x3/uL (0.0-1.1); %Basophils 0.2 % (0.0-2.0); %Eosinophils 1.2 % (0.0-6.0); %Lymphocytes 13.7 % (18.0-47.0); %Monocytes 8.8 % (0.0-10.0); %Neutrophils 75.7 % (40.0-75.0); Hemoglobin 10.4 g/dL (13.5-17.5); Mean Corpuscular HGB CONC 32.3 g/dL (32.0-36.0); Mean Corpuscular Volume 86.6 fl (81.2-95.1); Mean Platelet Volume 9.8 fl (7.4-10.4); Platelet Count 363 10x3/uL (150-450); RBC Distribution Width 12.2 % (11.5-14.5); Red Blood Cell (RBC) Count 3.72 10x6/uL (4.32-5.72); White Blood Cell (WBC) Count 9.2 10x3/uL (3.5-10.5)
[2021-11-24 16:45] LABS: Anion Gap 6 mmol/L (10-20); BUN (Urea Nitrogen) 24 mg/dL (8.4-25.7); Calc. Creatinine Clearance 0 mL/min (70-130); Carbon Dioxide 29 mmol/L (23-31); Chloride 90 mmol/L (98-107); Estimated GFR 65; Glucose 297 mg/dL (80-115); Potassium 3.9 mmol/L (3.5-5.1); Sodium 121 mmol/L (136-145)
== END 2021-11-24 14:16 | disposition home or self-care (01) ==
LOC: LABBT 14:15
PROVIDERS: ATTEND Specialist
DX: Z01.818 Encounter for other preprocedural examination (principal); I73.9 Peripheral vascular disease, unspecified; Z89.9 Acquired absence of limb, unspecified; Z20.822 Contact with and (suspected) exposure to COVID-19
CPT/HCPCS: 80048; 85025; 87811; 93005; 93010

== ENCOUNTER 2021-11-26 06:42 | Inpatient (IN) | payer MEDICARE, MEDICAID ==
[2021-11-26] MEDS ORDERED: Sodium Chloride 3% 500 ML IVPB SCH (09:00)
[2021-11-26 10:14] LABS: Anion Gap 14 mmol/L (10-20); BUN (Urea Nitrogen) 22 mg/dL (8.4-25.7); Calc. Creatinine Clearance 63 mL/min (70-130); Calcium 8.9 mg/dL (7.8-10.44); Carbon Dioxide 23 mmol/L (23-31); Chloride 106 mmol/L (98-107); Estimated GFR 76; Glucose 152 mg/dL (80-115); Sodium 139 mmol/L (136-145)
[2021-11-26] MEDS ORDERED: PHENYLEPHRINE-NS 100 MCG/ML 10 ML SYRINGE ONE (10:21)
[2021-11-26] MEDS ORDERED: Rocuronium Bromide 10 MG/ML (10ML VIAL) ONE (10:21)
[2021-11-26] MEDS ORDERED: Glycopyrrolate 0.2 MG/ML 5 ML SYRINGE ONE (10:21)
[2021-11-26] MEDS ORDERED: PROPOFOL 200 MG/20 ML VIAL ONE (10:21)
[2021-11-26] MEDS ORDERED: Lidocaine 1% PF 5 ML VIAL ONE (10:21)
[2021-11-26] MEDS ORDERED: CEFAZOLIN 2 GM VIAL ONE (10:40)
[2021-11-26] MEDS ORDERED: Sodium Chloride 0.9% 100 ML ONE (10:40)
[2021-11-26] MEDS ORDERED: fentaNYL Citrate/PF 100 MCG/2 ML SYRINGE ONE (10:42)
[2021-11-26] MEDS ORDERED: Fentanyl 100 MCG/2 ML VIAL ONE ×3 (12:00→12:51)
[2021-11-26] MEDS ORDERED: Promethazine HCl 25 MG/ML VIAL IM PRN ×2 (12:10→13:00)
[2021-11-26] MEDS ORDERED: Ondansetron HCl/PF 4 MG/2 ML Vial IVP PRN (12:10)
[2021-11-26] MEDS ORDERED: Promethazine HCl 25 MG/ML VIAL IVPB PRN (12:10)
[2021-11-26] MEDS ORDERED: Dextrose 5% in Water 1,000 ML IV PRN (12:12)
[2021-11-26] MEDS ORDERED: Morphine 2 MG/ML VIAL SLOW IVP PRN (12:12)
[2021-11-26] MEDS ORDERED: traMADol HCl 50 MG TAB PO PRN (12:12)
[2021-11-26] MEDS ORDERED: HYDROcodone/Acetaminophen 10/325 mg Tablet PO PRN ×2 (12:12)
[2021-11-26] MEDS ORDERED: Morphine 4 MG/ML VIAL SLOW IVP PRN (12:12)
[2021-11-26] MEDS ORDERED: Dextrose 50% Abboject 50 ML SYRINGE SLOW IVP PRN (12:12)
[2021-11-26] MEDS ORDERED: Ondansetron ODT 4 MG TAB PO PRN (12:12)
[2021-11-26] MEDS ORDERED: Zolpidem Tartrate 5 MG TAB PO PRN (13:00)
[2021-11-26] MEDS ORDERED: Ondansetron PF 4 MG/2 ML Vial IVP PRN (13:00)
[2021-11-26] MEDS ORDERED: diphenhydrAMINE 25 MG CAP PO PRN (13:00)
[2021-11-26] MEDS ORDERED: Fentanyl CADD 100 ML IVPB SCH (13:00)
[2021-11-26] MEDS ORDERED: diphenhydrAMINE 50 MG/ML VIAL IM/IV PRN (13:00)
[2021-11-26 14:51] VITALS: BMI 26.9
[2021-11-26] MEDS: Sodium Chloride 0.45% 1,000 ML IV SCH (15:09)
[2021-11-26] MEDS ORDERED: Ketorolac Tromethamine 30 MG/ML VIAL IVP SCH (18:00)
[2021-11-26 20:09] LABS: Amphetamine Not Detected (NotDetected); Barbiturates Screen Not Detected (NotDetected); Benzodiazepine Screen Not Detected (NotDetected); Cocaine Metabolite Screen Not Detected (NotDetected); Methadone Not Detected (NotDetected); Methamphetamine Not Detected (NotDetected); Opiate Screen Detected (NotDetected); Oxycodone Screen Not Detected (NotDetected); Phencyclidine (PCP) Not Detected (NotDetected); THC/Cannabinoid Screen Not Detected (NotDetected); Tricyclic Screen Not Detected (NotDetected)
[2021-11-26] MEDS: CEFAZOLIN 2 GM in Sodium Chloride 0.9% 100 ML IVPB SCH (21:22)
[2021-11-26] MEDS: Enoxaparin Sodium 40 MG/0.4 ML SYRINGE SC SCH (21:23)
[2021-11-27] MEDS: Sodium Chloride 0.45% 1,000 ML IV SCH ×3 (00:13→18:22)
[2021-11-27] MEDS: CEFAZOLIN 2 GM in Sodium Chloride 0.9% 100 ML IVPB SCH ×3 (05:08→21:19)
[2021-11-27 05:38] LABS: #Lymphocytes 1.3 thou/uL (1.20-3.40); #Monocytes 0.9 thou/uL (0.11-0.59); #Neutrophils 10.5 thou/uL (1.40-6.50); %Basophils 0.1 % (0.0-1.0); %Eosinophils 0.1 % (0.0-10.0); %Lymphocytes 10.3 % (21.0-51.0); %Monocytes 7.3 % (0.0-10.0); %Neutrophils 82.2 % (42.0-75.0); Hemoglobin 10.4 g/dL (14.0-18.0); Mean Corpuscular HGB CONC 31.7 g/dL (32.0-36.0); Mean Corpuscular Hemoglobin 28.8 pg (27.0-31.0); Mean Corpuscular Volume 90.9 fL (78.0-98.0); Mean Platelet Volume 7.1 fL (7.4-10.4); Platelet Count 344 thou/uL (130-400); White Blood Cell (WBC) Count 12.8 thou/uL (4.8-10.8)
[2021-11-27 06:13] LABS: Anion Gap 20 mmol/L (10-20); BUN (Urea Nitrogen) 18 mg/dL (8.4-25.7); Calc. Creatinine Clearance 76 mL/min (70-130); Carbon Dioxide 18 mmol/L (23-31); Chloride 104 mmol/L (98-107); Estimated GFR 94; Glucose 135 mg/dL (80-115); Potassium 4.2 mmol/L (3.5-5.1); Sodium 138 mmol/L (136-145)
[2021-11-27] MEDS: Acetaminophen 325 MG TAB PO SCH ×4 (10:48→21:19)
[2021-11-27] MEDS: HumaLOG 300 UNITS/3 ML VIAL SC PRN ×2 (11:14→16:52)
[2021-11-27] MEDS ORDERED: Sodium Chloride 0.45% 1,000 ML IV SCH (18:27)
[2021-11-27] MEDS: Gabapentin 300 MG CAP PO SCH (21:20)
[2021-11-27] MEDS: Enoxaparin Sodium 40 MG/0.4 ML SYRINGE SC SCH (21:20)
[2021-11-27] MEDS: hydrALAZINE 25 MG TAB PO SCH (21:21)
[2021-11-28] MEDS: Acetaminophen 325 MG TAB PO SCH ×2 (05:17→10:10)
[2021-11-28] MEDS: CEFAZOLIN 2 GM in Sodium Chloride 0.9% 100 ML IVPB SCH (05:18)
[2021-11-28] MEDS: HYDROcodone/Acetaminophen 5/325 mg Tablet PO PRN ×2 (07:20→14:18)
[2021-11-28] MEDS: Atorvastatin Calcium 40 MG TAB PO SCH (08:20)
[2021-11-28] MEDS: metFORMIN 500 MG TAB PO SCH ×2 (08:20→17:05)
[2021-11-28] MEDS: Atenolol 25 MG TAB PO SCH (08:20)
[2021-11-28] MEDS: Gabapentin 300 MG CAP PO SCH ×3 (08:20→21:31)
[2021-11-28] MEDS: hydrALAZINE 25 MG TAB PO SCH ×3 (08:20→21:31)
[2021-11-28] MEDS: Empagliflozin 25 MG TAB PO SCH (08:21)
[2021-11-28] MEDS: Polyethylene Glycol 3350 17 GM Packet PO SCH (08:21)
[2021-11-28] MEDS: Aspirin 81 mg Enteric Coated Tablet PO SCH (08:21)
[2021-11-28] MEDS: traMADol HCl 50 MG TAB PO PRN ×2 (10:11→23:36)
[2021-11-28] MEDS: HumaLOG 300 UNITS/3 ML VIAL SC PRN ×2 (12:03→17:05)
[2021-11-28] MEDS: Enoxaparin Sodium 40 MG/0.4 ML SYRINGE SC SCH (21:30)
[2021-11-29] MEDS: HYDROcodone/Acetaminophen 5/325 mg Tablet PO PRN (08:45)
[2021-11-29] MEDS: metFORMIN 500 MG TAB PO SCH ×2 (08:46→17:31)
[2021-11-29] MEDS: Empagliflozin 25 MG TAB PO SCH (08:47)
[2021-11-29] MEDS: Gabapentin 300 MG CAP PO SCH ×3 (08:47→20:40)
[2021-11-29] MEDS: Atorvastatin Calcium 40 MG TAB PO SCH (08:47)
[2021-11-29] MEDS: Atenolol 25 MG TAB PO SCH (08:47)
[2021-11-29] MEDS: Aspirin 81 mg Enteric Coated Tablet PO SCH (08:47)
[2021-11-29] MEDS: hydrALAZINE 25 MG TAB PO SCH ×3 (08:48→20:41)
[2021-11-29] MEDS: Polyethylene Glycol 3350 17 GM Packet PO SCH (08:48)
[2021-11-29] MEDS: traMADol HCl 50 MG TAB PO PRN (12:19)
[2021-11-29] MEDS: HYDROcodone/Acetaminophen 10/325 mg Tablet PO PRN ×2 (15:51→21:58)
[2021-11-29] MEDS: Enoxaparin Sodium 40 MG/0.4 ML SYRINGE SC SCH (20:41)
[2021-11-29] MEDS: HumaLOG 300 UNITS/3 ML VIAL SC PRN (21:59)
[2021-11-30] MEDS: HumaLOG 300 UNITS/3 ML VIAL SC PRN ×2 (06:38→20:54)
[2021-11-30] MEDS: metFORMIN 500 MG TAB PO SCH ×2 (08:01→16:57)
[2021-11-30] MEDS: Atorvastatin Calcium 40 MG TAB PO SCH (08:01)
[2021-11-30] MEDS: Gabapentin 300 MG CAP PO SCH ×3 (08:01→20:53)
[2021-11-30] MEDS: Aspirin 81 mg Enteric Coated Tablet PO SCH (08:02)
[2021-11-30] MEDS: Atenolol 25 MG TAB PO SCH (08:05)
[2021-11-30] MEDS: Polyethylene Glycol 3350 17 GM Packet PO SCH (08:06)
[2021-11-30] MEDS: hydrALAZINE 25 MG TAB PO SCH ×4 (08:07→20:53)
[2021-11-30] MEDS: Empagliflozin 25 MG TAB PO SCH (09:36)
[2021-11-30] MEDS: HYDROcodone/Acetaminophen 10/325 mg Tablet PO PRN ×2 (11:38→16:57)
[2021-11-30] MEDS ORDERED: traMADol HCl 50 MG TAB PO PRN (15:01)
[2021-11-30] MEDS: Enoxaparin Sodium 40 MG/0.4 ML SYRINGE SC SCH (20:54)
[2021-12-01] MEDS: HYDROcodone/Acetaminophen 10/325 mg Tablet PO PRN ×2 (05:46→11:36)
[2021-12-01] MEDS: metFORMIN 500 MG TAB PO SCH ×2 (08:24→16:03)
[2021-12-01] MEDS: Gabapentin 300 MG CAP PO SCH ×3 (08:24→20:44)
[2021-12-01] MEDS: Atenolol 25 MG TAB PO SCH (08:24)
[2021-12-01] MEDS: Atorvastatin Calcium 40 MG TAB PO SCH (08:24)
[2021-12-01] MEDS: Polyethylene Glycol 3350 17 GM Packet PO SCH (08:24)
[2021-12-01] MEDS: Aspirin 81 mg Enteric Coated Tablet PO SCH (08:25)
[2021-12-01] MEDS: Empagliflozin 25 MG TAB PO SCH (08:25)
[2021-12-01] MEDS: hydrALAZINE 25 MG TAB PO SCH ×3 (08:25→20:44)
[2021-12-01] MEDS: Enoxaparin Sodium 40 MG/0.4 ML SYRINGE SC SCH (20:44)
[2021-12-02] MEDS: HYDROcodone/Acetaminophen 10/325 mg Tablet PO PRN ×4 (03:40→16:56)
[2021-12-02] MEDS: Atenolol 25 MG TAB PO SCH (08:34)
[2021-12-02] MEDS: metFORMIN 500 MG TAB PO SCH ×2 (08:35→16:55)
[2021-12-02] MEDS: Atorvastatin Calcium 40 MG TAB PO SCH (08:35)
[2021-12-02] MEDS: Aspirin 81 mg Enteric Coated Tablet PO SCH (08:35)
[2021-12-02] MEDS: Empagliflozin 25 MG TAB PO SCH (08:35)
[2021-12-02] MEDS: hydrALAZINE 25 MG TAB PO SCH ×3 (08:35→20:19)
[2021-12-02] MEDS: Gabapentin 300 MG CAP PO SCH ×3 (08:35→20:19)
[2021-12-02] MEDS: Polyethylene Glycol 3350 17 GM Packet PO SCH (08:37)
[2021-12-02] MEDS: Enoxaparin Sodium 40 MG/0.4 ML SYRINGE SC SCH (20:20)
[2021-12-03] MEDS: HYDROcodone/Acetaminophen 10/325 mg Tablet PO PRN ×4 (07:54→21:41)
[2021-12-03] MEDS: Polyethylene Glycol 3350 17 GM Packet PO SCH (08:50)
[2021-12-03] MEDS: Atenolol 25 MG TAB PO SCH (08:50)
[2021-12-03] MEDS: Atorvastatin Calcium 40 MG TAB PO SCH (08:51)
[2021-12-03] MEDS: Aspirin 81 mg Enteric Coated Tablet PO SCH (08:51)
[2021-12-03] MEDS: metFORMIN 500 MG TAB PO SCH ×2 (08:51→17:04)
[2021-12-03] MEDS: Gabapentin 300 MG CAP PO SCH ×3 (08:51→21:41)
[2021-12-03] MEDS: Empagliflozin 25 MG TAB PO SCH (08:52)
[2021-12-03] MEDS: hydrALAZINE 25 MG TAB PO SCH ×3 (08:52→21:41)
[2021-12-03] MEDS: Enoxaparin Sodium 40 MG/0.4 ML SYRINGE SC SCH (21:40)
[2021-12-04] MEDS: HYDROcodone/Acetaminophen 10/325 mg Tablet PO PRN ×3 (05:03→20:11)
[2021-12-04] MEDS: Gabapentin 300 MG CAP PO SCH ×3 (09:16→20:10)
[2021-12-04] MEDS: Empagliflozin 25 MG TAB PO SCH (09:16)
[2021-12-04] MEDS: Atenolol 25 MG TAB PO SCH (09:16)
[2021-12-04] MEDS: Aspirin 81 mg Enteric Coated Tablet PO SCH (09:16)
[2021-12-04] MEDS: Atorvastatin Calcium 40 MG TAB PO SCH (09:16)
[2021-12-04] MEDS: metFORMIN 500 MG TAB PO SCH ×2 (09:16→16:35)
[2021-12-04] MEDS: hydrALAZINE 25 MG TAB PO SCH ×3 (09:16→20:10)
[2021-12-04] MEDS: Polyethylene Glycol 3350 17 GM Packet PO SCH (09:17)
[2021-12-04] MEDS: Enoxaparin Sodium 40 MG/0.4 ML SYRINGE SC SCH (20:10)
[2021-12-05] MEDS: HYDROcodone/Acetaminophen 10/325 mg Tablet PO PRN ×3 (05:48→18:03)
[2021-12-05] MEDS: hydrALAZINE 25 MG TAB PO SCH ×2 (09:24→15:13)
[2021-12-05] MEDS: Atenolol 25 MG TAB PO SCH (09:24)
[2021-12-05] MEDS: Polyethylene Glycol 3350 17 GM Packet PO SCH (09:24)
[2021-12-05] MEDS: Empagliflozin 25 MG TAB PO SCH (09:25)
[2021-12-05] MEDS: metFORMIN 500 MG TAB PO SCH ×2 (09:25→18:03)
[2021-12-05] MEDS: Aspirin 81 mg Enteric Coated Tablet PO SCH (09:25)
[2021-12-05] MEDS: Atorvastatin Calcium 40 MG TAB PO SCH (09:25)
[2021-12-05] MEDS: Gabapentin 300 MG CAP PO SCH ×2 (09:26→15:12)
[2021-12-05 18:14] VITALS: BP 138/76; TEMP 98.5
== END 2021-12-05 18:30 | DRG 240 ==
LOC: SDC 06:42 → SURG B 12:12 → EDSTATUS 15:00
PROVIDERS: ADMIT Specialist; ATTEND Specialist
PROC: 0Y6H0Z1 Detachment at Right Lower Leg, High, Open Approach (ICD-10-PCS; principal; 2021-11-26)
DX: E11.52 Type 2 diabetes mellitus with diabetic peripheral angiopathy with gangrene (principal); E87.1 Hypo-osmolality and hyponatremia; M86.8X7 Other osteomyelitis, ankle and foot; Z20.822 Contact with and (suspected) exposure to COVID-19; E11.22 Type 2 diabetes mellitus with diabetic chronic kidney disease; E11.69 Type 2 diabetes mellitus with other specified complication; I12.9 Hypertensive chronic kidney disease with stage 1 through stage 4 chronic kidney disease, or unspecified chronic kidney disease; N18.30 Chronic kidney disease, stage 3 unspecified; E78.5 Hyperlipidemia, unspecified; E11.621 Type 2 diabetes mellitus with foot ulcer; L97.519 Non-pressure chronic ulcer of other part of right foot with unspecified severity; Z79.899 Other long term (current) drug therapy; Z79.82 Long term (current) use of aspirin; Z79.84 Long term (current) use of oral hypoglycemic drugs; Z89.422 Acquired absence of other left toe(s); Z89.421 Acquired absence of other right toe(s); Z89.411 Acquired absence of right great toe; Z88.5 Allergy status to narcotic agent
CPT/HCPCS: 36415; 36416; 80048; 80306; 80307; 83930; 83935; 84300; 85025; 87811; 88307; 88311; 93005; 93010; J0690; J1650; J1815; J2405; J2704; J2710; J3010; J3490; J7131; L8440